=== PATIENT | female | born 1965 ===

== ENCOUNTER 2017-05-11 15:36 | Inpatient (IN) ==
[2017-05-11] MEDS ORDERED: SODIUM CHLORIDE 0.9% 1,000 ML IV STA (16:30)
[2017-05-11 16:35] LABS: Basophils % 0.1 % (0.0-0.8); Eosinophils # 0.1 10*3/uL (0.0-0.87); Eosinophils % 1.8 % (0.00-10.9); Hematocrit 21.7 VOL% (35.7-47.0); Hemoglobin 7.1 GM/DL (12.0-16.0); Immature Granulocytes % 0.7 %; Immature Granulocytes Absolute 0.05 #; Lymphocytes # 1.3 10*3/uL (1.4-4.0); Lymphocytes % 18.3 % (21.3-54.2); Mean Corpuscular HGB Conc 32.7 GM/DL (32-36); Mean Corpuscular Hemoglobin 34 PG (27-34); Mean Corpuscular Volume 102.4 FL (87-102); Mean Platelet Volume 10.5 FL (9.6-12.0); Monocytes # 0.5 10*3/uL (0.11-0.8); Monocytes % 6.4 % (1.7-12.7); Neutrophils # 5.3 10*3/uL (1.4-7.4); Neutrophils % 72.7 % (38.7-73.9); Red Blood Count 2.12 MC/CUMM (3.8-5.5); Red Cell Distribution Width 14.7 % (9.3-17.3); White Blood Count 7.3 T/CUMM (4-12)
[2017-05-11 16:38] LABS: Platelet Count 65 T/CUMM (130-400)
[2017-05-11 16:47] LABS: Alanine Aminotransferase 26 U/L (13-56); Alkaline Phosphatase 158 U/L (45-117); Aspartate Amino Transferase 32 U/L (0-37); Blood Urea Nitrogen 15 MG/DL (7-18); Calcium 7.1 MG/DL (8.5-10.1); Glucose 284 MG/DL (74-106); Osmolality,Calculated 285.7 MOS/KG (273-304); Potassium 3.7 MMOL/L (3.5-5.1); Sodium 138 MMOL/L (136-145); Total Protein 4.9 G/DL (6.4-8.3); Troponin I Only < 0.015 NG/ML (0.00-0.045)
[2017-05-11] MEDS ORDERED: SODIUM CHLORIDE 0.9% 250 ML IV PRN ×3 (16:47→20:41)
--- NOTE | 2017-05-11 16:53 | XRay Report ---
XR chest 1V portable Indication: Hypotension. No syncope. Chest one view: Comparison 10/13/2014. Dialysis catheter has been removed. Lung volumes remain low with chronic elevation right hemidiaphragm. Bibasilar atelectasis is noted. Borderline cardiomegaly is stable. No infiltrates. Pleural spaces are clear. Impression: Borderline cardiomegaly and pulmonary hypoinflation with chronic elevation right hemidiaphragm. No overt CHF. PROCEDURE INTERPRETED AT [facility] DEPARTMENT OF RADIOLOGY Final Report Signed by: Teddy Cortez M.D.
[2017-05-11 17:05] LABS: INR 1.1; PT Patient Result 11.9 SECS; Partial Thromboplastin Time 27.6 SECS (0-40)
--- NOTE | 2017-05-11 17:31 | Emergency Department Note ---
Sanford Bell Manpreet, am scribing for, and in the presence of, Waqar Owens Jr., MD 16:29. Roman Bell Marvin Jr., MD, personally performed the services described in this documentation, ascribed by Luis Manuel Christina in my presence, and it is both accurate and complete 730 . Arrival - Arrival Chief Complaint: Syncope Stated Complaint: weakness/low bp ED Nursing Triage Note: pt reports she had dialysis this morning and before she left she got syncopal and bp dropped. pt reports she was given two liters of ivf and sent home and felt better. Mode of Arrival: Stretcher Limitations: No Limitations Source: Patient - History of Present Illness HPI Narrative: Pt is a 51 y/o female who presents to the ED after being dizzy and her BP dropping while standing up. Pt was at dialysis when they checked her BP and repeated it when she was standing. Pt kept getting dizzy when she was standing up. Pt was given two liters of fluid. Pt was then sent home and felt better. When pt got home, she again felt dizzy while standing. Pt also c/o +VOSS and rates it 4/10. Pt denies any CP or SOB with the pain and did not pass out. No other pains/complaints reported to the ED. Onset (ago): hour(s) Consistency: constant Severity: moderate Allergies/Adverse Reactions: Allergies Allergy/AdvReac Type Severity Reaction Status Date / Time No Known Allergies Allergy Unverified 03/05/15 23:03 Home Medications: Home Medications Medication Instructions Recorded Confirmed Type Aspirin EC Tab 325 mg PO DAILY 03/05/15 03/05/15 History Carvedilol [Coreg] 12.5 mg PO BID 03/05/15 03/05/15 History Ferrous Sulfate Tab [Feosol Tab] 325 mg PO BID 03/05/15 03/05/15 History Multivitamin [One Daily] 1 each PO DAILY 03/05/15 03/05/15 History glipiZIDE [Glipizide] 5 mg PO AC 03/05/15 03/05/15 History HYDROcodone/ACETAMIN 5-325 [[place] 1 tablet PO Q6H PRN #20 tablet 03/06/15 Rx 5-325] Review of System - Review of System 12 point system: reviewed and no additional remarkable complaints except as stated - Review of System Constitutional: Present: other (Low BP and dizziness). Absent: chills, diaphoresis, fever Respiratory: Absent: cough, respiratory distress, wheezing Cardiovascular: Absent: chest pain, dyspnea on exertion Gastrointestinal: Absent: abdominal pain, nausea Neurological: Present: headache Medical,Surgical,& Family Hx - Medical History Cardio: History of: Hypertension Endocrine: History of: Diabetes Mellitus (IDDM) Renal: History of: Dialysis (went today due tomorrow), Renal Failure - Social History Smoking Status: Never smoker Exam Physical Examination: General: Well-developed well-nourished, no apparent distress. Patient laid down with systolic blood pressure 105 Head: Normocephalic, atraumatic. Eyes: PERRLA, EOMI. Nose: No obvious acute deformities or discharge. Mouth: No obvious acute injury. Neck: Full range of motion without obvious pain. No midline tender to palpation. Lymphatic: no significant lymphadenopathy noted. Lungs: Clear to auscultation bilaterally, normal and equal air movement bilaterally, no obvious rales or wheezing. Heart: regular rate and rhythm, no obvious mummers. Abdomen: Soft nontender, nondistended, normal active bowel sounds. Skin: No obivous acute lesions noted Musculoskeletal: No gross deformities. Neurological: No focal findings, cranial nerves II through XII grossly normal. Psychiatric: Appropriate mood.. : Deferred Vital Signs: Vital Signs Temperature 100.2 F H 05/11/17 15:58 Pulse Rate 88 05/11/17 15:58 Respiratory Rate 18 05/11/17 15:58 Blood Pressure 84/41 05/11/17 15:58 O2 Sat by Pulse Oximetry 100 05/11/17 15:37 Course Course Narrative: Differential diagnosis, volume depletion secondary to dialysis, hypotension, near syncope, headache, ACS, cardiac arrhythmias - Reevaluation(s) Reevaluation #1: Patient on the bedpan now and has been grossly bloody stool, patient still hypotensive Time: 16:48 Reevaluation #2: Systolic blood pressure now 106. Her GI bleed is the obvious cause for this hypotension and near syncopal episode. She is not on blood thinners. We will admit her to the ICU under the hospitalist service who is here to see the patient now. Time: 17:27 Results - Labs CBC & BMP: 05/11/17 16:14 05/11/17 16:14 Lab Results: I have reviewed the patients labs Labs: Laboratory Tests 05/11/17 05/11/17 05/11/17 16:14 16:14 16:14 WBC 7.3 RBC 2.12 L Hgb 7.1 L Hct 21.7 L MCV 102.4 H MCH 34 MCHC 32.7 RDW 14.7 Plt Count 65 L MPV 10.5 Neut % (Auto) 72.7 Lymph % (Auto) 18.3 L [place] % (Auto) 6.4 Eos % (Auto) 1.8 Baso % (Auto) 0.1 Neut # (Auto) 5.3 Lymph # (Auto) 1.3 L [place] # (Auto) 0.5 Eos # (Auto) 0.1 Baso # (Auto) 0.0 Immature Gran % 0.7 Nucleated RBC % 0.0 Immature Gran # 0.05 Nucleated RBCs # 0.00 Immature Plt Fraction 3.3 INR 1.1 PT Patient/Control Mix 11.9 Circ Anticoag PTT 27.6 Sodium 138 Potassium 3.7 Chloride 100 Carbon Dioxide 33 H Anion Gap 8.7 BUN 15 Creatinine 3.40 H GFR Calculation 17 BUN/Creatinine Ratio 4.00 L Glucose 284 H Calculated Osmolality 285.7 Calcium 7.1 L Total Bilirubin 0.80 AST 32 ALT 26 Alkaline Phosphatase 158 H Troponin I < 0.015 Total Protein 4.9 L Albumin 2.0 L Globulin 2.9 Albumin/Globulin Ratio 0.6 L - EKG EKG results: interpreted by ERMD (Heart rate 85, normal sinus rhythm, narrow complex QRS complexes without obvious acute ST changes) - Diagnostic Findings Procedure: Chest x-ray: report reviewed by me, image reviewed by me (Borderline cardiomegaly and pulmonary hypoinflation with chronic elevation right hemidiaphragm. No overt CHF.) Critical Care Time Critical Care Time: Yes (Hypotension, GI bleed) Total Critical Care Time: 40 Attestation: Critical care due to multiple diagnoses, critical condition, prolonged patient care time Disposition Clinical Impression: Acute hypotension, Lower GI bleed, End stage renal disease on dialysis, Anemia Case discussed with: patient Disposition: Still a Patient Condition: Guarded Time of Disposition: 17:29
[2017-05-11 18:31] LABS: Platelet Estimate Decreased
[2017-05-11 18:32] LABS: Macrocytosis Slight
[2017-05-11] MEDS ORDERED: MORPHINE 2 MG/1 ML SYRINGE IV PRN (18:32)
[2017-05-11] MEDS ORDERED: ACETAMINOPHEN 325 MG TABLET PO PRN (18:32)
--- NOTE | 2017-05-11 18:58 | CT Report ---
CT abdomen pelvis wo con Indication: Left lower quadrant abdominal pain. CT ABDOMEN AND PELVIS WITHOUT CONTRAST DLP: 942 mGy*cm. One or more of the following dose reduction techniques was used: Automated exposure control, adjustment of the mA and/or kV according the patient size, or use of iterative reconstruction techniques. Comparison: None. Technique: Axial noncontrast CT images of the abdomen and pelvis were obtained. Abdomen: Normal heart size. Mitral valve calcifications are present as well as coronary artery calcifications. No aortic aneurysm. Bibasilar scarring or atelectasis. Elevated right hemidiaphragm. Obesity and fatty infiltration of liver noted. Liver is minimally enlarged. Cholecystectomy clips. Spleen is enlarged with calcified granulomata present. Stomach is distended. No small bowel dilatation shown. There is a 15 x 12 mm hypodensity at the tip of the tail the pancreas. Pancreas otherwise unremarkable absent contrast. Adrenal glands are unremarkable. Kidneys are atrophied with atheromatous disease present. Monckeberg calcifications of the mesenteric vasculature noted. 16 mm duodenal diverticulum is present. Pelvis: Normal appendix without inflammation. Urinary bladder and rectosigmoid colon are unremarkable. Uterus and adnexal structures appear atrophied but otherwise unremarkable as well. No bone lesions. Impression: 1. Hepatosplenomegaly, with fatty infiltration of liver. 2. Distention of the stomach with no small bowel dilatation shown. Evidence of diabetes. Query gastroparesis. 3. 15 x 12 mm hypodensity at the tip of the tail the pancreas. Absent contrast, further characterization is not possible. Consider either ultrasound or MRI. 4. Bilateral renal atrophy. 5. Duodenal diverticulum. PROCEDURE INTERPRETED AT [facility] DEPARTMENT OF RADIOLOGY Final Report Signed by: Teddy Cortez M.D.
--- NOTE | 2017-05-11 19:07 | Hospitalist History & Physical ---
Assessment and Plan - Time spent with patient Time spent with patient: Greater than 30 minutes (1) Lower GI bleed Status: Acute Assessment and plan: Patient hypertensive passed bright red blood per rectum while in the ED. Transfuse with 2 units packed red blood cells. IV fluids. Consult GI. Current Visit: Yes (2) Anemia Status: Acute Assessment and plan: Secondary to her GI bleed. Serial H&H's. Transfuse with 2 units of packed red blood cells. Repeat CBC in a.m. Current Visit: Yes (3) LLQ abdominal pain Status: Acute Assessment and plan: CT of the abdomen and pelvis. Current Visit: Yes (4) End stage renal disease on dialysis Status: Acute Assessment and plan: Creatinine 3.40. Secondary to diabetes. Accu-Cheks ACHS. Sliding scale insulin per protocol. Continue home medications. Consult nephrology for dialysis if indicated. Current Visit: Yes History of Present Illness Chief complaint: BRBPR History of present illness: Ms. Garner is a 51 year old [place] female with a past medical history significant for hypertension, diabetes, CKD on hemodialysis who presents to the ED today for further evaluation of fatigue and generalized weakness having onset this morning. The patient reports that she began feeling fatigued and weak while at dialysis today. The nurses there found her to hypotensive and treated her with IV fluids until her pressure normalized. She was instructed to call 911 or go to the ER if she began to feel faint again. Once home, she began to feel fatigued with dizziness, headache, fullness in her ears and weakness. She was brought to the [place] ED via EMS. On arrival the patient was found to be hypotensive with a BP of 69/40 and anemic with H7H of 7 and 21. She did have a bowel movement while in the ED and passed bright red blood. She was infused with 3L of NS and responded appropriately. She complained of left lower quadrant pain at the time of my exam. She denies a similar events, hematemesis, chest pain, pain on inspiration, lower extremity edema. Lab work reveals: WBC 7.3, hemoglobin 7.1, hematocrit 21.7, MCV 102.4, platelet count 65, sodium 138, potassium 3.7, BUN 15, creatinine 3.40, serum glucose 284. Case discussed with Dr. Milian and the patient has been admitted to the hospital medicine service for further evaluation and treatment. She is a FULL CODE. Home medications have been reviewed and reconciled. Home Medications Medication Instructions Recorded Confirmed Type Aspirin EC Tab 325 mg PO DAILY 03/05/15 03/05/15 History Carvedilol [Coreg] 12.5 mg PO BID 03/05/15 03/05/15 History Ferrous Sulfate Tab [Feosol Tab] 325 mg PO BID 03/05/15 03/05/15 History Multivitamin [One Daily] 1 each PO DAILY 03/05/15 03/05/15 History glipiZIDE [Glipizide] 5 mg PO AC 03/05/15 03/05/15 History HYDROcodone/ACETAMIN 5-325 [[place] 1 tablet PO Q6H PRN #20 tablet 03/06/15 Rx 5-325] Allergies Allergy/AdvReac Type Severity Reaction Status Date / Time No Known Allergies Allergy Unverified 03/05/15 23:03 Medical,Surgical,& Family Hx - Medical History Cardio: History of: Hypertension Endocrine: History of: Diabetes Mellitus (IDDM) Renal: History of: Dialysis (went today due tomorrow), Renal Failure - Family History Family History: Reports;: Family Diabetes, Family Heart Disease, Family Hypertension - Social History Smoking Status: Never smoker Frequency of Alcohol Use: None Type of Drug Use: None Marital Status: Single Lives With:: Alone Functional capacity: independent ambulation 12 point system: reviewed and no additional remarkable complaints except as stated Exam - Constitutional Vitals: Period Temp Pulse Resp BP Sys/Lee Pulse Ox Last 24 Hr 100.2 F-100.2 F 81-92 18-18 77-129/40-58 100-100 Exam: General appearance: obese, no acute distress - Head Head exam: Present: normocephalic, atraumatic - Eye Eye exam: Present: EOMI. Absent: conjunctival injection, nystagmus Pupils: Present: GAMAL, normal accommodation - ENT ENT exam: Present: normal exam, normal external ear exam - Neck Neck exam: Present: normal inspection. Absent: lymphadenopathy, tenderness, thyromegaly - Respiratory Respiratory exam: Present: clear to auscultation bilaterally. Absent: rales, rhonchi, wheezes - Cardiovascular Cardiovascular exam: Present: regular rate and rhythm. Absent: carotid bruit, gallop, rubs - GI/Abdominal GI/Abdominal exam: Present: normal bowel sounds, LLQ tenderness to palpation. Absent: ascites, distended, mass - Extremities Exam Extremities exam: Present: normal inspection, normal capillary refill. Absent: edema - Back Exam Back exam: Absent: CVA tenderness (L), CVA tenderness (R) - Neurological Exam Neurological exam: Present: alert, oriented X3, CN II-XII intact, reflexes normal - Psychiatric Psychiatric exam: Present: normal affect, normal mood - Skin Skin exam: Present: warm, dry Results - Labs CBC & BMP: 05/11/17 16:14 05/11/17 16:14 Lab Results: I have reviewed the past 24 hour labs - EKG EKG results: interpreted by ANIKET, sinus rhythm Quality Measures - VTE Contraindication to Pharmacological VTE Prophylaxis: High Risk of Bleeding
[2017-05-11 20:26] LABS: Hematocrit 22.7 VOL% (35.7-47.0); Hemoglobin 7.2 GM/DL (12.0-16.0)
[2017-05-11 20:41] LABS: Fibrinogen Quant Value 214 MG% (200-400); INR 1.1; Partial Thromboplastin Time 26.9 SECS (0-40)
[2017-05-11] MEDS: PANTOPRAZOLE 40 MG VIAL IV SCH (22:54)
[2017-05-12] MEDS ORDERED: INSULIN REGULAR 100 UNIT/ML SUBCUT ONE ×2 (00:01→01:56)
[2017-05-12] MEDS ORDERED: ACETAMINOPHEN 325 MG SUPP RECTAL PRN (00:08)
[2017-05-12] MEDS ORDERED: INSULIN REGULAR 100 UNIT/ML IV ONE (01:55)
[2017-05-12 05:53] LABS: Basophils % 0.3 % (0.0-0.8); Eosinophils # 0.2 10*3/uL (0.0-0.87); Eosinophils % 1.6 % (0.00-10.9); Hematocrit 26.6 VOL% (35.7-47.0); Hemoglobin 8.7 GM/DL (12.0-16.0); Immature Granulocytes % 1.7 %; Immature Granulocytes Absolute 0.18 #; Lymphocytes # 2.1 10*3/uL (1.4-4.0); Lymphocytes % 20.4 % (21.3-54.2); Mean Corpuscular HGB Conc 32.7 GM/DL (32-36); Mean Corpuscular Hemoglobin 32 PG (27-34); Mean Corpuscular Volume 98.9 FL (87-102); Monocytes # 0.7 10*3/uL (0.11-0.8); Monocytes % 6.8 % (1.7-12.7); NRBC # 0.09 10*3/uL; Neutrophils # 7.2 10*3/uL (1.4-7.4); Neutrophils % 69.2 % (38.7-73.9); Platelet Count 61 T/CUMM (130-400); Red Blood Count 2.69 MC/CUMM (3.8-5.5); Red Cell Distribution Width 18.2 % (9.3-17.3); White Blood Count 10.5 T/CUMM (4-12)
[2017-05-12 06:30] LABS: Calcium 7.6 MG/DL (8.5-10.1); Osmolality,Calculated 295.5 MOS/KG (273-304); Risk Ratio 5.4; VLDL CHOLESTEROL 33.2 MG/DL
[2017-05-12] MEDS: INSULIN ASPART PROTAMINE/ASPART 70/30 100 UNIT/ML SUBCUT SCH ×4 (07:54→21:37)
--- NOTE | 2017-05-12 09:08 | EKG Report ---
Stationary ECG Study [facility] ER Test Date: 05/11/2017 4:06:44 PM Pat Name: CAR GILBERT Department: Room: 122 Gender: F [employer]: : 1965 Requested by: Waqar Owens Order Number: [id number] Reading MD: EMILIE LYONS Intervals [place] Rate: 85 P: 81 AR: 120 QRS: 38 QRSD: 96 T: -17 QT: 416 QTc: 458 Interpretive Statements SINUS RHYTHM LOW QRS VOLTAGE IN PRECORDIAL LEADS POSSIBLE ANTERIOR MYOCARDIAL INFARCTION, PROBABLY OLD Electronically Signed On 05-12-17 11:31:13 CDT by EMILIE LYONS [email or web address]
--- NOTE | 2017-05-12 11:18 | Gastrointestinal Consult Note ---
Assessment and Plan (1) Lower GI bleed Status: Acute Assessment and plan: This patient has the acute onset of painful cramping in waves in association with bright red blood per rectum which has now become more maroon in a decrease in hematocrit 21% all suspicious for ischemic colitis. Other conditions in the differential however includes infectious colitis, a diverticular bleed, malignancy colon cancer, AVMs, and Dieulafoy's lesions. The patient is willing to undergo colonoscopy for evaluation tomorrow will give her a GoLYTELY prep in order to pursue this. Risks of colonoscopy include but are not limited to: Bleeding, infection, perforation, cardiac and pulmonary compromise. Current Visit: Yes (2) LLQ abdominal pain Status: Acute Assessment and plan: Again I believe this is likely either ischemic colitis versus infectious colitis as a cause for the pain and blood loss. Diverticular bleeding is usually painless. Colonoscopy tomorrow should be able to demonstrate the cause for the blood loss and pain. Current Visit: Yes (3) Anemia Status: Acute Assessment and plan: The patient has some anemia of chronic disease likely tied into her dialysis. She has dropped her hematocrit however acutely down to 21% and is having maroon stools in addition to her previous bright red blood per rectum. Unfortunately because of her dialysis she will had to be prepped using a GoLYTELY prep and we will perform colonoscopy on her tomorrow in order to expedite her discharge from the hospital, and to treat any ongoing blood loss if this proves to be diverticular instead of what I presume is likely ischemic colitis. Current Visit: Yes History of Present Illness Chief complaint: Left upper and left mid abdominal pain, rectal bleeding, anemia History of present illness: Ms. Garner is a 51 year old female who has a history of doing dialysis 3 times per week and yesterday after dialysis the patient developed a great deal of cramping in her left upper and left mid abdomen associated with the passage of bright red blood per rectum in a voluminous amount. Weakness and dizziness ensued patient presented to the emergency room for evaluation. She has never had an episode like this before. She was noted to have hypotension and her hematocrit had dropped quite significantly to 21.7 and now status post transfusion is up to 26.6. Evaluation of her previous hematocrits indicated that she tends to run anywhere between 25.8-29.5 going back to the 6617-8904 timeframe. Her only outpatient anticoagulant medication is aspirin 325 mg daily. She does take iron sulfate 325 mg twice daily on a routine basis. She is postmenopausal and does not have any periods. She has never had a colonoscopy. There is no family history of colorectal cancer or polyps that she knows of. She has not had any fevers or chills, and her appetite is good. She has been on a clear liquid diet in preparation for potential colonoscopy. Will arrange for this procedure for tomorrow, given that she is still having low -grade bleeding with maroon stools at this time, and significant left abdominal pain both upper and lower. 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 She does not smoke and does not drink significant amounts of alcohol. Home Medications Medication Instructions Recorded Confirmed Type Aspirin EC Tab 325 mg PO DAILY 03/05/15 05/12/17 History Carvedilol [Coreg] 12.5 mg PO BID 03/05/15 05/12/17 History Ferrous Sulfate Tab [Feosol Tab] 325 mg PO BID 03/05/15 05/12/17 History Multivitamin [One Daily] 1 each PO DAILY 03/05/15 05/12/17 History glipiZIDE [Glipizide] 5 mg PO AC 03/05/15 05/12/17 History HYDROcodone/ACETAMIN 5-325 [[place] 1 tablet PO Q6H PRN #20 tablet 03/06/15 Rx 5-325] Allergies Allergy/AdvReac Type Severity Reaction Status Date / Time No Known Allergies Allergy Unverified 03/05/15 23:03 Medical,Surgical,& Family Hx - Medical History Cardio: No history of: Hypertension Endocrine: History of: Diabetes Mellitus (IDDM) Renal: History of: Dialysis (went today due tomorrow), Renal Failure - Family History Family History: Reports;: Family Diabetes, Family Heart Disease, Family Hypertension - Social History Smoking Status: Never smoker Frequency of Alcohol Use: None Type of Drug Use: None Review of systems: Constitutional: Denies fever, chills, nausea, and vomiting Eyes: Denies dry eyes, and scleral icterus HENT: Denies headaches Cardiovascular: Denies acute chest pain and claudication Respiratory: Denies shortness of breath, wheezing, and difficulty breathing, denies cough Gastrointestinal: As noted in the HPI Genitourinary: Denies dysuria and hematuria Neurologic: Denies vision loss, and loss of sensation Musculoskeletal: She does have some joint swelling, joint stiffness, and muscular weakness Psychiatric: Denies depression and kaila symptoms Heme-Lymph: Patient does have some easy bruising, but no lymph node enlargement or tenderness, night sweats, excessive bleeding Allergies-immunologic: Denies pruritus and rhinorrhea Exam - Constitutional Vitals: Period Temp Pulse Resp BP Sys/Lee Pulse Ox Last 24 Hr 97.6 F-100.2 F 81-101 13-24 77-132/30-84 95-100 General appearance: no acute distress Exam: Constitutional: Well-developed, well-nourished, alert, and in no acute distress Head and face: Head: Normocephalic atraumatic Eyes: Conjunctiva without injection, no gross scleral icterus, pupils equal and round bilaterally Ears: Intact to conversation in both ears Nose: External appearance is normal, nares patent Mouth: Oral mucous membranes moist without erythema dentition noted to be without erosion Neck: Normal appearance, no masses or tenderness, trachea midline Thyroid: Gland midline and appropriate size for age Respiratory: Normal respiratory effort, clear to auscultation without wheezes, rhonchi or rales Cardiovascular: Regular rate and rhythm, normal S1, S2, the exam is without rubs, murmurs or gallops. Gastrointestinal: There is a moderate amount of tenderness to palpation mostly in the left upper and left mid abdomen with just a touch of rebound to this area, normal active bowel sounds, tone normal without rigidity or guarding , no masses present, no hepatomegaly, no spleen tip felt. The patient has a pannus that has multiple bruises in association with this presumably from insulin injection. Good tone no external fissures or fistulas small internal hemorrhoids are palpated the patient has stool is maroon and grossly guaiac positive. Lymphatic: Neck without adenopathy, axilla without lymphadenopathy present Musculoskeletal: Right and left lower extremities with slight edema on the right calf is a area of woody/calcified subcutaneous tissue of unclear etiology. Patient states that this area has been ultrasound and thought not to be a DVT. Skin and subcutaneous tissue: No rashes or ulcerations noted, multiple bruises are noted along the patient's abdomen, normal skin turgor, digits and nails without clubbing/cyanosis/deformities. Neurologic: The patient is grossly oriented to person place and time, cranial nerves show tongue movements are normal with normal tongue extrusion midline, light touch sensation is intact. Psychiatric: No hallucinations or delusions are present, does not appear depressed Results - Labs CBC & BMP: 05/12/17 08:43 05/12/17 05:01 Quality Measures - VTE Contraindication to Pharmacological VTE Prophylaxis: High Risk of Bleeding
[2017-05-12] MEDS: PANTOPRAZOLE 40 MG VIAL IV SCH ×2 (12:01→21:38)
[2017-05-12] MEDS: BISACODYL 5 MG TABLET PO SCH ×2 (12:01→20:25)
[2017-05-12 12:11] LABS: Hematocrit 28.6 VOL% (35.7-47.0); Hemoglobin 9.5 GM/DL (12.0-16.0)
--- NOTE | 2017-05-12 17:32 | Hospitalist Progress Note ---
Hospitalist: Subjective Interval history: 51-year-old female with history of ESRD on hemodialysis admitted with lower GI bleed. Yesterday after dialysis she developed a cramping in her abdomen associated with the passage of bright red blood per rectum in a voluminous amount. Weakness and dizziness ensued patient presented to the emergency room for evaluation. She has never had an episode like this before. She was noted to have hypotension and her hematocrit dropped quite significantly to 21.7 and now status post transfusion is up to 26.6. Exam - Constitutional Vitals: Period Temp Pulse Resp BP Sys/Lee Pulse Ox Last 24 Hr 97.6 F-98.8 F 81-101 12-24 82-133/30-84 95-100 Exam: General: No Acute Distress HEENT: Normocephalic, atraumatic, Extra ocular movements intact Neck: Supple, No JVD Chest: Clear to auscultation B/L CV: S1 + S2 audible without murmur, gallop or rub Abd: soft, left-sided abdominal tenderness, Non-distended, BS + Ext: Mild edema Skin: No purpura, bruising or rash Rheumatologic: No Joint deformities Neurologic: Strength 5/5 all extremities, no gross sensory deficits Results - Labs CBC & BMP: 05/12/17 11:59 05/12/17 05:01 - Impressions Assessment and Plan (1) Lower GI bleed Status: Acute Assessment and plan: This is likely due to colitis rule out ischemic colitis, infectious colitis. Patient is scheduled for a colonoscopy in the morning Current Visit: Yes (2) LLQ abdominal pain Status: Acute Assessment and plan: Likely related to her colitis Current Visit: Yes (3) Anemia of acute GI blood loss Status: Acute Assessment and plan: She is status post packed RBC transfusion Current Visit: Yes (4) ESRD on Ch HD (5) DM-2 Quality Measures - VTE Contraindication to Pharmacological VTE Prophylaxis: High Risk of Bleeding
[2017-05-12] MEDS ORDERED: POLYETHYLENE GLYCOL 3350/ELECTROLYTES 4,000 ML BOTTLE PO ONE (18:00)
[2017-05-12] MEDS ORDERED: MAGNESIUM CITRATE 300 ML BOTTLE PO ONE (21:00)
[2017-05-13 01:43] LABS: Basophils % 0.2 % (0.0-0.8); Eosinophils # 0.3 10*3/uL (0.0-0.87); Eosinophils % 2.8 % (0.00-10.9); Hematocrit 26.3 VOL% (35.7-47.0); Hemoglobin 8.6 GM/DL (12.0-16.0); Immature Granulocytes % 1.4 %; Immature Granulocytes Absolute 0.14 #; Lymphocytes # 1.7 10*3/uL (1.4-4.0); Lymphocytes % 16.8 % (21.3-54.2); Mean Corpuscular HGB Conc 32.7 GM/DL (32-36); Mean Corpuscular Hemoglobin 32 PG (27-34); Mean Corpuscular Volume 98.9 FL (87-102); Mean Platelet Volume 10.5 FL (9.6-12.0); Monocytes # 0.5 10*3/uL (0.11-0.8); Monocytes % 4.7 % (1.7-12.7); NRBC # 0.04 10*3/uL; Neutrophils # 7.7 10*3/uL (1.4-7.4); Neutrophils % 74.1 % (38.7-73.9); Platelet Count 59 T/CUMM (130-400); Red Blood Count 2.66 MC/CUMM (3.8-5.5); Red Cell Distribution Width 18.9 % (9.3-17.3); White Blood Count 10.3 T/CUMM (4-12)
[2017-05-13 02:13] LABS: Calcium 8.3 MG/DL (8.5-10.1); Osmolality,Calculated 295.1 MOS/KG (273-304); Potassium 3.5 MMOL/L (3.5-5.1)
[2017-05-13 02:36] LABS: Band Neutrophils 1 % (0-10); Eosinophils 2 % (0-10); Lymphocytes 21 % (20-55); Segmented Neutrophils 75 % (50-85); Total Cells Counted 100
[2017-05-13 02:37] LABS: Anisocytosis 1+; Hypochromasia 1+; Ovalocytes Few; Platelet Estimate Decreased
[2017-05-13] MEDS: BISACODYL 5 MG TABLET PO SCH (04:45)
[2017-05-13] MEDS: INSULIN ASPART PROTAMINE/ASPART 70/30 100 UNIT/ML SUBCUT SCH ×4 (07:34→21:18)
[2017-05-13] MEDS: PANTOPRAZOLE 40 MG VIAL IV SCH ×2 (08:35→21:18)
--- NOTE | 2017-05-13 10:43 | Operative Note ---
Date of procedure: 05/13/17 Pre-op diagnosis: Lower GI bleeding, hematocrit to 26%, left lower quadrant pain Post-op diagnosis: other (Possible infectious colitis. Possible diverticular bleed with resolution. Mild left-sided diverticulosis noted, and small internal hemorrhoids are noted on retroflex) Procedure: PROCEDURE: Colonoscopy with cold biopsy for pathology REFERRING PHYSICIAN: Mena Frye MD INDICATIONS: Lower GI bleeding, left lower quadrant pain, anemia with hematocrit 26%. The prior H&P was reviewed and interrim changes are as noted: No change from GI consultation on 05/12/17 ENDOSCOPIST: Miguel Ruiz MD ENDOSCOPE: Olympus Video 100 System colonoscope COLON PREPARATION: 238 gm of PEG containing laxative and 1.9 liters of gatoraid/sports drink and dulcolax 15 mg q8 hours x 3 ASA CLASS: 4 EXAM: CV: regular rate and rhythm Respiratory: Clear without wheezes Abdominal: active bowel sounds Rectal: Good tone, no fissures or fistulas MEDICATION: Per nursing anesthesia protocol, see their notes PROCEDURE: After discussion of the potential risks and benefits of colonoscopy, the informed consent was obtained, from patient or health care surrogate. The patient was then placed in the left lateral decubitus position where sedation was achieved as noted above. Rectal examination was followed by insertion of the colonoscope. The colonoscope was passed under direct visualization to the cecum. Advancement was facilitated by insertion/withdrawl techniques, abdominal pressure and patient positioning. Once the cecal pole was reached, slow withdrawal was performed with the findings as noted below. The patient tolerated the procedure well and without complication. QUALITY OF PREP: Excellent WITHDRAWL TIME: 6 minutes 43 seconds BIOPSIES: Cecum/ascending colon, descending/sigmoid PHOTOGRAPHS: Obtained FINDINGS: The musoca appeared mildly erythematous in the following regions: rectum, sigmoid colon, descending colon, splenic flexure, transverse colon, hepatic flexure, ascending colon and cecum. Position within the cecum was confirmed by ileocecal valve, appendiceal oriface, and the convergence of folds (crows foot). No polyp, mass or AVM was noted throughout the colon. Aside from being mildly inflamed throughout the colon there appears to be a predominance of thickening in the sigmoid region with the patient previously had been having pain. There was no pus or ischemic appearance or bleeding. Mild left-sided diverticulosis noted. Routine biopsies were taken in the ascending/cecum, descending/sigmoid in order to look for underlying colitis. Intubation of the TI was achieved x 5 cm with normal appearence, small internal hemorrhoids were noted on retroflex IMPRESSION: Possible infectious colitis. Possible diverticular bleed with resolution. Mild left-sided diverticulosis noted, and small internal hemorrhoids are noted on retroflex RECOMMENDATIONS: High fiber diet Repeat colonosocopy will be in 10 years. Await biopsy results to look for underlying colitis. White count is stable at this time, would not initiate antibiotic therapy. Citrucel 1 tablespoon in 12 oz juice BID: 1 bottle: :11 Follow up by phone for biopsy results in 1-2 weeks by phone Miguel Ruiz MD COPY TO: Mena Frye MD Anesthesia: MAC Surgeon / Physician: Miguel Ruiz Estimated blood loss: minimal Specimens: other (Cecum/ascending, descending/sigmoid biopsies) Condition: stable Disposition: post procedure unit ([facility]I. Suite) Results - Labs CBC & BMP: 05/13/17 00:58 05/13/17 00:58 Discharge Plan - Discharge Medications No Action Multivitamin [One Daily] 1 each PO DAILY Carvedilol [Coreg] 12.5 mg PO BID Aspirin EC Tab 325 mg PO DAILY glipiZIDE [Glipizide] 5 mg PO AC Ferrous Sulfate Tab [Feosol Tab] 325 mg PO BID HYDROcodone/ACETAMIN 5-325 [[place] 5-325] 1 tablet PO Q6H PRN #20 tablet PRN Reason: leg pain - Follow Up or Referral - Forms/Instructions
--- NOTE | 2017-05-13 10:45 | Anesthesia Post-Op ---
Anesthesia Post OP - Post Ansesthetic Evaluation Patient seen in post op: Yes Resp: within normal limits CV: within normal limits Mental: within normal limits Temp: within normal limits Gdbd-Uo-Lvljqdalg: within normal limits Nausea and Vomiting: within normal limits Pain: within normal limits
[2017-05-13] MEDS ORDERED: PROPOFOL 200 MG/20 ML VIAL IV ONE (10:48)
[2017-05-13] MEDS ORDERED: SODIUM CHLORIDE 0.9% 250 ML IV ONE (10:50)
--- NOTE | 2017-05-13 10:50 | Gastrointestinal Progress Note ---
Assessment and Plan (1) Lower GI bleed Status: Acute Assessment and plan: This patient has the acute onset of painful cramping in waves in association with bright red blood per rectum which has now become more maroon in a decrease in hematocrit 21% all suspicious for ischemic colitis. Other conditions in the differential however includes infectious colitis, a diverticular bleed, malignancy colon cancer, AVMs, and Dieulafoy's lesions. The patient is willing to undergo colonoscopy for evaluation tomorrow will give her a GoLYTELY prep in order to pursue this. Risks of colonoscopy include but are not limited to: Bleeding, infection, perforation, cardiac and pulmonary compromise. 05/13/17--the patient's pain has improved now and although there was slightly edematous appearance throughout the entire colon with may be some thickening in the sigmoid region there was no true ischemic colitis there. This bleeding may been associated with a low-grade diverticular bleed but her hematocrit has not changed significantly from her baseline. She did not have any polyps she did have a good prep and we were able to see all the way into the terminal ileum. Aside from mild erythema and the thickening in the sigmoid, the colonoscopy was normal. No residual blood was seen. The patient is stable and can be sent up to the floor for potential discharge tomorrow. Biopsies were taken and she may have a underlying self-limited colitis. Given the diverticuli in the left colon I think we will label this is a "diverticular bleed". Current Visit: Yes (2) LLQ abdominal pain Status: Acute Assessment and plan: Again I believe this is likely either ischemic colitis versus infectious colitis as a cause for the pain and blood loss. Diverticular bleeding is usually painless. Colonoscopy tomorrow should be able to demonstrate the cause for the blood loss and pain. 05/13/17--no gross evidence of an ischemic colitis, there was mild erythema throughout and localized edema in the sigmoid, but this did not appear to be a jay jay diverticulitis as I have seen in the past. Will observe as we advance her diet. Current Visit: Yes (3) Anemia Status: Acute Assessment and plan: The patient has some anemia of chronic disease likely tied into her dialysis. She has dropped her hematocrit however acutely down to 21% and is having maroon stools in addition to her previous bright red blood per rectum. Unfortunately because of her dialysis she will had to be prepped using a GoLYTELY prep and we will perform colonoscopy on her tomorrow in order to expedite her discharge from the hospital, and to treat any ongoing blood loss if this proves to be diverticular instead of what I presume is likely ischemic colitis. 05/13/17--the patient's hematocrit is stable. She can certainly be sent up to the floor from the unit, I am advancing her diet to renal. From my standpoint post dialysis she can be discharged tomorrow. Current Visit: Yes Gastroenterology - PN: Subj Interval history: No new complaints, hungry. No further abdominal pain. Exam (Progress Note) - Constitutional Vitals: Period Temp Pulse Resp BP Sys/Lee Pulse Ox Last 24 Hr 97.1 F-97.8 F 71-86 14-22 100-158/50-074 94-100 General appearance: no acute distress - Head Head exam: Present: normocephalic - Eye Eye exam: Present: EOMI Pupils: Present: GAMAL - Cardiovascular Cardiovascular exam: Present: regular rate and rhythm - GI/Abdominal GI/Abdominal exam: Present: normal bowel sounds, soft. Absent: distended, tenderness, rebound - Neurological Exam Neurological exam: Present: alert, oriented X3, CN II-XII intact - Psychiatric Psychiatric exam: Present: normal affect, normal mood - Skin Skin exam: Present: warm Results - Labs CBC & BMP: 05/13/17 00:58 05/13/17 00:58
[2017-05-13 12:05] LABS: Hematocrit 24.9 VOL% (35.7-47.0); Hemoglobin 8.5 GM/DL (12.0-16.0)
--- NOTE | 2017-05-13 15:22 | Hospitalist Progress Note ---
Hospitalist: Subjective Interval history: 51-year-old female with history of ESRD on hemodialysis admitted with lower GI bleed. Yesterday after dialysis she developed a cramping in her abdomen associated with the passage of bright red blood per rectum in a voluminous amount. Weakness and dizziness ensued patient presented to the emergency room for evaluation. She has never had an episode like this before. She is s/p Colonoscopy and was felt to have Diverticular bleed. She has no further bleeding. Exam - Constitutional Vitals: Period Temp Pulse Resp BP Sys/Lee Pulse Ox Last 24 Hr 97.1 F-97.8 F 71-85 14-22 100-162/53-074 94-100 Exam: General: No Acute Distress HEENT: Normocephalic, atraumatic, Extra ocular movements intact Neck: Supple, No JVD Chest: Clear to auscultation B/L CV: S1 + S2 audible without murmur, gallop or rub Abd: soft, left-sided abdominal tenderness, Non-distended, BS + Ext: Mild edema Skin: No purpura, bruising or rash Rheumatologic: No Joint deformities Neurologic: Strength 5/5 all extremities, no gross sensory deficits Results - Labs CBC & BMP: 05/13/17 11:56 05/13/17 00:58 - Impressions Assessment and Plan (1) Lower GI bleed Status: Acute Assessment and plan: This is likely due to colitis rule out ischemic colitis, infectious colitis. Patient is scheduled for a colonoscopy in the morning Current Visit: Yes (2) LLQ abdominal pain Status: Acute Assessment and plan: Likely related to her colitis Current Visit: Yes (3) Anemia of acute GI blood loss Status: Acute Assessment and plan: She is status post packed RBC transfusion Current Visit: Yes (4) ESRD on Ch HD MWF Status: Chronic Assessment and plan: Nephrology consulted to resume HD in AM Current Visit: Yes (5) DM-2 Status: Ch Assessment and plan: She is on SSI Current Visit: Yes (6) Ess HTN Status: Ch Assessment and plan: Uncontrolled, resumed home Coreg, monitor Current Visit: Yes Transfer to floor from ICU today Quality Measures - VTE Contraindication to Pharmacological VTE Prophylaxis: High Risk of Bleeding
[2017-05-13] MEDS: CARVEDILOL 12.5 MG TABLET PO SCH (21:18)
[2017-05-13 23:32] LABS: Hematocrit 21.9 VOL% (35.7-47.0); Hemoglobin 7.5 GM/DL (12.0-16.0)
[2017-05-14 06:19] LABS: Basophils % 0.2 % (0.0-0.8); Eosinophils # 0.2 10*3/uL (0.0-0.87); Eosinophils % 2.7 % (0.00-10.9); Hematocrit 22.2 VOL% (35.7-47.0); Hemoglobin 7.5 GM/DL (12.0-16.0); Immature Granulocytes Absolute 0.06 #; Lymphocytes # 1.6 10*3/uL (1.4-4.0); Lymphocytes % 27.4 % (21.3-54.2); Mean Corpuscular HGB Conc 33.8 GM/DL (32-36); Mean Corpuscular Hemoglobin 33 PG (27-34); Mean Corpuscular Volume 96.1 FL (87-102); Mean Platelet Volume 9.9 FL (9.6-12.0); Monocytes # 0.3 10*3/uL (0.11-0.8); Monocytes % 4.8 % (1.7-12.7); NRBC # 0.04 10*3/uL; Neutrophils # 3.7 10*3/uL (1.4-7.4); Neutrophils % 63.9 % (38.7-73.9); Platelet Count 45 T/CUMM (130-400); Red Blood Count 2.31 MC/CUMM (3.8-5.5); Red Cell Distribution Width 17.7 % (9.3-17.3); White Blood Count 5.9 T/CUMM (4-12)
[2017-05-14 06:50] LABS: Macrocytosis 1+; Platelet Estimate Decreased; Polychromasia Slight; Potassium 3.7 MMOL/L (3.5-5.1); Target Cells Slight
--- NOTE | 2017-05-14 08:31 | Discharge Summary ---
Hospital Course - Hospital Course Hospital Course: Discharge diagnosis: 1. Lower GI bleed, likely diverticular 2. End-stage renal disease 3. Hypertension The patient presented to the hospital with a lower GI bleed. She underwent evaluation by GI, and they felt the source was most likely diverticular. She also has end-stage renal disease. She is on MWF dialysis schedule. GI has completed her workup. We will get her dialyzed today, and then she can go home afterward. Medication reconciliation has been performed. Renal select diet. Activity as tolerated. Follow-up with local physician as previously scheduled. This note was completed using [employer] voice recognition software. There may be manager transition errors as a result. Discharge Plan - Discharge Data Disposition: Disch To Home/Self Care Discharge Diet: advance to your usual diet Activity: resume usual activities as tolerated Hygiene: no restrictions Weight Bearing at Discharge: full weight bearing Driving: no restrictions - Discharge Medications Continue Multivitamin [One Daily] 1 each PO DAILY Carvedilol [Coreg] 12.5 mg PO BID Aspirin EC Tab 325 mg PO DAILY glipiZIDE [Glipizide] 5 mg PO AC Ferrous Sulfate Tab [Feosol Original Tab] 325 mg PO BID HYDROcodone/ACETAMIN 5-325 [[place] 5-325] 1 tablet PO Q6H PRN #20 tablet PRN Reason: leg pain - Follow Up or Referral - Forms/Instructions Exam - Constitutional Vitals: Period Temp Pulse Resp BP Sys/Lee Pulse Ox Last 24 Hr 96.5 F-97.7 F 71-83 15-20 93-162/47-074 94-100 Vital signs are noted above. Heart is regular with no murmur or gallop. Lungs are clear with no rales or wheezes. She is awake and alert Discharge Results Labs on day of discharge: Labs from last 24 hours 05/14/17 05/14/17 05/14/17 07:17 04:37 04:37 WBC 5.9 D RBC 2.31 L Hgb 7.5 L Hct 22.2 L MCV 96.1 MCH 33 MCHC 33.8 RDW 17.7 H Plt Count 45 L D MPV 9.9 Neut % (Auto) 63.9 Lymph % (Auto) 27.4 Payne % (Auto) 4.8 Eos % (Auto) 2.7 Baso % (Auto) 0.2 Neut # (Auto) 3.7 Lymph # (Auto) 1.6 Payne # (Auto) 0.3 Eos # (Auto) 0.2 Baso # (Auto) 0.0 Immature Gran % 1.0 Nucleated RBC % 0.7 Immature Gran # 0.06 Nucleated RBCs # 0.04 Platelet Estimate Decreased Immature Plt Fraction 2.7 Polychromasia Slight Macrocytosis 1+ Target Cells Slight Sodium 136 Potassium 3.7 Chloride 100 Carbon Dioxide 22 Anion Gap 17.7 H BUN 84 H Creatinine 8.40 H GFR Calculation 6 BUN/Creatinine Ratio 10.00 Glucose 118 H POC Glucose 121 H Calculated Osmolality 298.0 Calcium 8.0 L 05/13/17 05/13/17 05/13/17 23:24 19:30 16:10 WBC RBC Hgb 7.5 L Hct 21.9 L MCV MCH MCHC RDW Plt Count MPV Neut % (Auto) Lymph % (Auto) Payne % (Auto) Eos % (Auto) Baso % (Auto) Neut # (Auto) Lymph # (Auto) Payne # (Auto) Eos # (Auto) Baso # (Auto) Immature Gran % Nucleated RBC % Immature Gran # Nucleated RBCs # Platelet Estimate Immature Plt Fraction Polychromasia Macrocytosis Target Cells Sodium Potassium Chloride Carbon Dioxide Anion Gap BUN Creatinine GFR Calculation BUN/Creatinine Ratio Glucose POC Glucose 283 H 210 H Calculated Osmolality Calcium 05/13/17 05/13/17 11:56 11:24 WBC RBC Hgb 8.5 L Hct 24.9 L MCV MCH MCHC RDW Plt Count MPV Neut % (Auto) Lymph % (Auto) Payne % (Auto) Eos % (Auto) Baso % (Auto) Neut # (Auto) Lymph # (Auto) Payne # (Auto) Eos # (Auto) Baso # (Auto) Immature Gran % Nucleated RBC % Immature Gran # Nucleated RBCs # Platelet Estimate Immature Plt Fraction Polychromasia Macrocytosis Target Cells Sodium Potassium Chloride Carbon Dioxide Anion Gap BUN Creatinine GFR Calculation BUN/Creatinine Ratio Glucose POC Glucose 102 Calculated Osmolality Calcium DS: Provider Date of admission: 05/11/17 17:31 Primary care physician: Candice Fermin MD Attending physician on admission: Martin Milian DO Consults: 05/11/17 18:32 Consult to Physician [CONS] Routine Comment: GI bleed Consulting Provider: Miguel Ruiz 05/11/17 19:43 Consult to Pastoral Services [CONS] Routine Comment: Pastoral Screen: Request Hammer Driver Visit Pastoral Screen Source of Request: Patient 05/13/17 15:11 Consult to Physician [CONS] Routine Comment: Please arrange HD on Sunday AM, pt is ESRD Consulting Provider: Teddy Gutierrez When should Consulting Provider be notified: In am When should Consulting Provider be notified: In am Discharging clinician: Willie Lozoya MD Expected date of discharge: 05/14/17 (after dialysis)
[2017-05-14] MEDS ORDERED: SODIUM CHLORIDE 0.9% 250 ML IV PRN (08:41)
[2017-05-14] MEDS: CARVEDILOL 12.5 MG TABLET PO SCH (08:47)
[2017-05-14] MEDS: INSULIN ASPART PROTAMINE/ASPART 70/30 100 UNIT/ML SUBCUT SCH ×3 (08:48→18:11)
[2017-05-14] MEDS: PANTOPRAZOLE 40 MG VIAL IV SCH (08:50)
[2017-05-14] MEDS ORDERED: MULTIVITAMIN (CENTRUM) TABLET PO SCH (09:00)
[2017-05-14 12:16] VITALS: BP 115/53
--- NOTE | 2017-05-14 15:38 | Dialysis Note ---
Dialysis Note - Dialysis Note Ms. Garner is seen during her hemodialysis. She is tolerating dialysis well and the plan is for her to be discharged after dialysis. She will continue dialysis in the outpatient unit.
--- NOTE | 2017-05-14 17:24 | Pathology Report from [facility] ---
[facility] ACCESSION # : [id number] PATIENT NAME : Vilma Gilbert ORDERING DR : Miguel Ruiz MD CLINICAL HX: Melena POST-OP DX: #1 Colitis #2 Colitis SPECIMEN INFO: #1 Cecum ascending biopsies #2 Descending sigmoid biopsies GROSS DESCRIPTION: #1 Received in formalin labeled with the patients name VILMA GILBERT and #1 consists of two benson mucosal tissue fragments together measuring 0.8 x 0.2 cm. Submitted in cassette #1.#2 Received in formalin labeled with the patients name VILMA GILBERT and #2 consists of three benson mucosal tissue fragments collectively measuring 1.0 x 0.3 cm. Submitted in cassette #2. DIAGNOSIS FOR VILMA GILBERT: #1 CECUM AND ASCENDING COLON, BIOPSIES: Superficial neutrophilic debris consistent with resolving acute self limited colitis. No granuloma formation, cryptitis, crypt abscesses or malignancy identified.#2 DESCENDING/SIGMOID BIOPSIES: Superficial neutrophilic debris consistent with resolving acute self limited colitis. No granuloma formation, cryptitis, crypt abscesses or malignancy identified. COLLECTED DATE: 05/13/2017 [facility] REPORT DATE: 05/14/2017 ELECTRONICALLY SIGNED BY: Ricardo Chris III, M.D. 05/14/2017 - 11:26:50 [email or web address]
== END 2017-05-14 19:55 | disposition home or self-care (01) | DRG 377 ==
LOC: EDBD → EDUNIT# → N.ED 15:36 → SUATTDRO 17:31 → N.EDINP 17:31 → N.CC 19:12 → N.4E 05-13 18:06
PROVIDERS: ADMIT Phlebology; ATTEND Internal Medicine Geriatric Medicine
PROC: COLONBX (2017-05-13 08:35)

== ENCOUNTER 2017-07-21 21:58 | Inpatient (IN) ==
[2017-07-21] MEDS ORDERED: ALUM/MAG/SIMETH/LIDO VISC 1:1 30 ML BOTTLE PO STA ×2 (22:24→22:40)
[2017-07-21] MEDS ORDERED: ASPIRIN 325 MG TABLET PO STA (22:24)
[2017-07-21] MEDS ORDERED: ONDANSETRON 4 MG/2 ML VIAL IV STA (22:24)
[2017-07-21] MEDS ORDERED: PANTOPRAZOLE 40 MG VIAL IV STA (22:39)
[2017-07-21] MEDS ORDERED: PANTOPRAZOLE 40 MG VIAL IV ONE (22:55)
[2017-07-21] MEDS ORDERED: ONDANSETRON 4 MG/2 ML VIAL ONE (22:55)
[2017-07-21 23:48] LABS: Basophils % 0.1 % (0.0-0.8); Eosinophils # 0.1 10*3/uL (0.0-0.87); Eosinophils % 0.7 % (0.00-10.9); Hemoglobin 6.6 GM/DL (12.0-16.0); Immature Granulocytes % 1.2 %; Immature Granulocytes Absolute 0.16 #; Lymphocytes # 1.7 10*3/uL (1.4-4.0); Lymphocytes % 13.1 % (21.3-54.2); Mean Corpuscular HGB Conc 31.4 GM/DL (32-36); Mean Corpuscular Hemoglobin 32 PG (27-34); Mean Corpuscular Volume 102.4 FL (87-102); Mean Platelet Volume 10.7 FL (9.6-12.0); Monocytes # 0.5 10*3/uL (0.11-0.8); Monocytes % 3.6 % (1.7-12.7); Neutrophils # 10.5 10*3/uL (1.4-7.4); Neutrophils % 81.3 % (38.7-73.9); Platelet Count 62 T/CUMM (130-400); Red Blood Count 2.05 MC/CUMM (3.8-5.5); Red Cell Distribution Width 18.2 % (9.3-17.3); White Blood Count 12.9 T/CUMM (4-12)
[2017-07-21 23:58] LABS: INR 1.2; PT Patient Result 12.2 SECS
[2017-07-22 00:12] LABS: Apearance,Urine CLOUDY (Clear); Bacteria,Urine Many /HPF (Few); Bilirubin,Urine Negative (Negative); Blood, Urine Large mg/dL (Negative); Glucose,Urine (UA) Negative (Negative); Ketones,Urine Negative (Negative); Nitrite,Urine Negative (Negative); Protein,Urine 100 MG/DL; RBC,Urine 358 /HPF (0-4); Urine Color Yellow (Yellow); Urine Specific Gravity 1.008 (1.001-1.035); Urine Urobilinogen < 2.0 EU/DL (0.2-1.0); WBC,Urine 1067 /HPF (0-6)
[2017-07-22 00:20] LABS: Albumin 1.9 G/DL (3.4-5.0); Calcium 6.9 MG/DL (8.5-10.1); Magnesium 2.2 MG/DL (1.8-2.4); Osmolality,Calculated 294.1 MOS/KG (273-304); Potassium 5.2 MMOL/L (3.5-5.1); Total Protein 4.7 G/DL (6.4-8.3)
[2017-07-22] MEDS ORDERED: metroNIDAZOLE INJ 500 MG in PREMIX 1 EACH IV STA (00:33)
[2017-07-22] MEDS ORDERED: cefTRIAXone 2,000 MG in SODIUM CHLORIDE 0.9% 100 ML IV STA (00:33)
[2017-07-22] MEDS ORDERED: SODIUM CHLORIDE 0.9% 250 ML IV PRN (00:34)
[2017-07-22] MEDS ORDERED: metroNIDAZOLE 500 MG/100 ML PREMIX IV ONE (00:59)
[2017-07-22] MEDS ORDERED: MORPHINE 2 MG/1 ML SYRINGE IV PRN (00:59)
[2017-07-22] MEDS ORDERED: cefTRIAXone 1,000 MG VIAL ONE (00:59)
[2017-07-22] MEDS ORDERED: DEXTROSE 50% 25 GM/50 ML VIAL IV PRN (02:21)
[2017-07-22] MEDS ORDERED: GLUCAGON 1 MG VIAL IM PRN (02:21)
[2017-07-22 02:36] LABS: Anisocytosis 1+; Hypochromasia 1+; Lymphocytes 13 % (20-55); Platelet Estimate Decreased; Segmented Neutrophils 87 % (50-85); Total Cells Counted 100
[2017-07-22] MEDS: SODIUM CHLORIDE 0.9% 1,000 ML IV SCH (02:45)
[2017-07-22] MEDS ORDERED: SODIUM CHLORIDE 0.9% 250 ML IV ONE (03:35)
[2017-07-22] MEDS ORDERED: INSULIN REGULAR 100 UNIT/ML IV ONE (04:09)
[2017-07-22] MEDS ORDERED: NOREPINEPHRINE 4 MG/4 ML VIAL IV ONE ×3 (04:10→17:33)
[2017-07-22] MEDS: NOREPINEPHRINE 8 MG in SODIUM CHLORIDE 0.9% 242 ML IV SCH ×5 (04:21→23:51)
[2017-07-22 08:02] LABS: Basophils % 0.1 % (0.0-0.8); Eosinophils % 0.1 % (0.00-10.9); Hematocrit 31.7 VOL% (35.7-47.0); Immature Granulocytes % 2.8 %; Immature Granulocytes Absolute 0.77 #; Lymphocytes # 2.8 10*3/uL (1.4-4.0); Lymphocytes % 10.2 % (21.3-54.2); Mean Corpuscular HGB Conc 31.5 GM/DL (32-36); Mean Corpuscular Hemoglobin 32 PG (27-34); Mean Platelet Volume 12.1 FL (9.6-12.0); Monocytes # 1.2 10*3/uL (0.11-0.8); Monocytes % 4.3 % (1.7-12.7); NRBC # 0.05 10*3/uL; Neutrophils # 22.7 10*3/uL (1.4-7.4); Neutrophils % 82.5 % (38.7-73.9); Platelet Count 71 T/CUMM (130-400); Red Blood Count 3.17 MC/CUMM (3.8-5.5); Red Cell Distribution Width 18.3 % (9.3-17.3); White Blood Count 27.5 T/CUMM (4-12)
[2017-07-22] MEDS: SEVELAMER CARBONATE 800 MG TABLET PO SCH (08:05)
[2017-07-22] MEDS: INSULIN REGULAR 100 UNIT/ML SUBCUT SCH ×4 (08:05→21:35)
[2017-07-22] MEDS: FERROUS SULFATE 325 MG TABLET PO SCH ×2 (08:15→21:36)
[2017-07-22 08:42] LABS: Albumin 2.2 G/DL (3.4-5.0); Calcium 7.4 MG/DL (8.5-10.1); Osmolality,Calculated 296.8 MOS/KG (273-304); Potassium 5.1 MMOL/L (3.5-5.1); Total Protein 5.2 G/DL (6.4-8.3)
[2017-07-22 08:43] LABS: Troponin I Only 0.067 NG/ML (0.00-0.045)
[2017-07-22] MEDS: PANTOPRAZOLE 40 MG VIAL IV SCH (09:20)
[2017-07-22 09:48] LABS: Band Neutrophils 4 % (0-10); Lymphocytes 4 % (20-55); Macrocytosis 1+; Nucleated Red Blood Cells 1 (0-5); Platelet Estimate Decreased; Polychromasia Slight; Segmented Neutrophils 89 % (50-85); Target Cells Slight; Total Cells Counted 100
[2017-07-22] MEDS: ONDANSETRON 4 MG/2 ML VIAL IV PRN (10:33)
[2017-07-22] MEDS: metroNIDAZOLE INJ 500 MG in PREMIX 1 EACH IV SCH ×2 (10:49→17:40)
[2017-07-22 13:00] LABS: Hemoglobin 9.1 GM/DL (12.0-16.0)
[2017-07-22] MEDS ORDERED: SUCCINYLCHOLINE 200 MG/10 ML VIAL ONE (14:39)
[2017-07-22] MEDS ORDERED: PROPOFOL 1,000 MG/100 ML BOTTLE IV ONE (14:48)
[2017-07-22] MEDS ORDERED: VECURONIUM 10 MG VIAL IV ONE ×2 (15:16→16:01)
[2017-07-22] MEDS ORDERED: NEOSTIGMINE 10 MG/10 ML VIAL ONE (15:32)
[2017-07-22] MEDS ORDERED: GLYCOPYRROLATE 0.4 MG/2 ML VIAL ONE (15:33)
[2017-07-22] MEDS ORDERED: NEOSTIGMINE 10 MG/10 ML VIAL IV ONE (16:02)
[2017-07-22] MEDS ORDERED: GLYCOPYRROLATE 0.4 MG/2 ML VIAL IV ONE (16:03)
[2017-07-22] MEDS ORDERED: PROPOFOL 200 MG/20 ML VIAL IV ONE (16:08)
[2017-07-22] MEDS ORDERED: MIDAZOLAM 2 MG/2 ML VIAL ONE (16:08)
[2017-07-22] MEDS: PROPOFOL 1,000 MG/100 ML BOTTLE IV SCH (16:49)
[2017-07-22] MEDS: CALCIUM ACETATE 667 MG CAPSULE PO SCH (17:05)
[2017-07-23] MEDS: metroNIDAZOLE INJ 500 MG in PREMIX 1 EACH IV SCH ×3 (04:07→17:54)
[2017-07-23 05:15] LABS: Calcium 7.5 MG/DL (8.5-10.1); Osmolality,Calculated 314.3 MOS/KG (273-304); Potassium 4.4 MMOL/L (3.5-5.1)
[2017-07-23] MEDS: NOREPINEPHRINE 8 MG in SODIUM CHLORIDE 0.9% 242 ML IV SCH ×3 (08:14→22:02)
[2017-07-23] MEDS: SODIUM CHLORIDE 0.9% 1,000 ML IV SCH (08:14)
[2017-07-23] MEDS: SEVELAMER CARBONATE 800 MG TABLET PO SCH (08:16)
[2017-07-23] MEDS: INSULIN REGULAR 100 UNIT/ML SUBCUT SCH ×3 (08:47→17:23)
[2017-07-23] MEDS: CALCIUM ACETATE 667 MG CAPSULE PO SCH ×3 (09:38→17:53)
[2017-07-23] MEDS: FERROUS SULFATE 325 MG TABLET PO SCH (09:38)
[2017-07-23] MEDS: PANTOPRAZOLE 40 MG VIAL IV SCH (09:38)
[2017-07-23 10:38] LABS: Basophils # 0.1 10*3/uL (0.0-0.2); Basophils % 0.1 % (0.0-0.8); Eosinophils % 0.1 % (0.00-10.9); Hematocrit 25.7 VOL% (35.7-47.0); Hemoglobin 8.8 GM/DL (12.0-16.0); Immature Granulocytes % 1.6 %; Immature Granulocytes Absolute 0.56 #; Lymphocytes # 2.9 10*3/uL (1.4-4.0); Lymphocytes % 8.6 % (21.3-54.2); Mean Corpuscular HGB Conc 34.2 GM/DL (32-36); Mean Corpuscular Hemoglobin 32 PG (27-34); Mean Corpuscular Volume 92.4 FL (87-102); Mean Platelet Volume 10.3 FL (9.6-12.0); Monocytes # 1.3 10*3/uL (0.11-0.8); Monocytes % 3.9 % (1.7-12.7); Neutrophils # 29.2 10*3/uL (1.4-7.4); Neutrophils % 85.7 % (38.7-73.9); Platelet Count 93 T/CUMM (130-400); Red Blood Count 2.78 MC/CUMM (3.8-5.5); Red Cell Distribution Width 19.9 % (9.3-17.3); White Blood Count 34.2 T/CUMM (4-12)
[2017-07-23 11:04] LABS: Hypochromasia 1+; Lymphocytes 4 % (20-55); Ovalocytes Slight; Platelet Estimate Decreased; Segmented Neutrophils 93 % (50-85); Total Cells Counted 100
[2017-07-23 11:05] LABS: Macrocytosis Slight
[2017-07-23] MEDS ORDERED: VANCOMYCIN INJ 750 MG in SODIUM CHLORIDE 0.9% 250 ML IV PRN (13:29)
[2017-07-23] MEDS ORDERED: VANCOMYCIN INJ 1,500 MG in SODIUM CHLORIDE 0.9% 500 ML IV ONE (15:00)
[2017-07-23] MEDS: PROPOFOL 1,000 MG/100 ML BOTTLE IV SCH (16:55)
[2017-07-23] MEDS: PIPERACILLIN/TAZOBACTAM 2,250 MG in SODIUM CHLORIDE 0.9% 100 ML IV SCH (17:25)
[2017-07-24] MEDS: INSULIN REGULAR 100 UNIT/ML SUBCUT SCH ×5 (00:15→21:56)
[2017-07-24] MEDS: FERROUS SULFATE 325 MG TABLET PO SCH ×3 (00:15→21:56)
[2017-07-24] MEDS: metroNIDAZOLE INJ 500 MG in PREMIX 1 EACH IV SCH (01:03)
[2017-07-24] MEDS: PIPERACILLIN/TAZOBACTAM 2,250 MG in SODIUM CHLORIDE 0.9% 100 ML IV SCH ×2 (03:53→16:27)
[2017-07-24 06:03] LABS: Basophils % 0.2 % (0.0-0.8); Eosinophils % 0.2 % (0.00-10.9); Hematocrit 20.4 VOL% (35.7-47.0); Hemoglobin 6.8 GM/DL (12.0-16.0); Immature Granulocytes % 1.1 %; Immature Granulocytes Absolute 0.18 #; Lymphocytes # 1.7 10*3/uL (1.4-4.0); Lymphocytes % 10.3 % (21.3-54.2); Mean Corpuscular HGB Conc 33.3 GM/DL (32-36); Mean Corpuscular Hemoglobin 32 PG (27-34); Mean Corpuscular Volume 95.8 FL (87-102); Mean Platelet Volume 10.3 FL (9.6-12.0); Monocytes # 0.9 10*3/uL (0.11-0.8); Monocytes % 5.4 % (1.7-12.7); NRBC # 0.15 10*3/uL; Neutrophils # 13.9 10*3/uL (1.4-7.4); Neutrophils % 82.8 % (38.7-73.9); Platelet Count 51 T/CUMM (130-400); Red Blood Count 2.13 MC/CUMM (3.8-5.5); Red Cell Distribution Width 20.3 % (9.3-17.3); White Blood Count 16.8 T/CUMM (4-12)
[2017-07-24 06:30] LABS: Basophilic Stippling Slight; Giant Platelets Few; Hypochromasia 1+; Lymphocytes 10 % (20-55); Macrocytosis Slight; Nucleated Red Blood Cells 2 (0-5); Ovalocytes Slight; Platelet Estimate Decreased; Segmented Neutrophils 87 % (50-85); Total Cells Counted 100
[2017-07-24 06:35] LABS: Bilirubin,Total 1.1 MG/DL (0.2-1.0); Calcium 7.7 MG/DL (8.5-10.1); Osmolality,Calculated 295.8 MOS/KG (273-304); Potassium 3.9 MMOL/L (3.5-5.1); Total Protein 4.7 G/DL (6.4-8.3)
[2017-07-24] MEDS ORDERED: SODIUM CHLORIDE 0.9% 250 ML IV PRN (07:47)
[2017-07-24] MEDS: CALCIUM ACETATE 667 MG CAPSULE PO SCH ×3 (09:12→17:21)
[2017-07-24] MEDS: PANTOPRAZOLE 40 MG VIAL IV SCH (09:14)
[2017-07-24] MEDS ORDERED: EPOETIN ALFA 10,000 UNIT/1 ML VIAL SUBCUT ONE (13:52)
[2017-07-24] MEDS: NOREPINEPHRINE 8 MG in SODIUM CHLORIDE 0.9% 242 ML IV SCH (15:56)
[2017-07-24] MEDS: SODIUM CHLORIDE 0.9% 1,000 ML IV SCH (16:25)
[2017-07-24] MEDS ORDERED: diphenhydrAMINE 50 MG/1 ML VIAL IV ONE (23:52)
[2017-07-25] MEDS: ONDANSETRON 4 MG/2 ML VIAL IV PRN (00:08)
[2017-07-25 00:23] LABS: Hematocrit 19.4 VOL% (35.7-47.0)
[2017-07-25 00:25] LABS: Hemoglobin 6.4 GM/DL (12.0-16.0)
[2017-07-25 00:49] LABS: Albumin 1.8 G/DL (3.4-5.0); Calcium 7.5 MG/DL (8.5-10.1); Osmolality,Calculated 302.7 MOS/KG (273-304); Potassium 3.8 MMOL/L (3.5-5.1); Total Protein 4.7 G/DL (6.4-8.3)
[2017-07-25] MEDS: SODIUM CHLORIDE 0.9% 1,000 ML IV SCH ×3 (01:48→22:35)
[2017-07-25] MEDS: PIPERACILLIN/TAZOBACTAM 2,250 MG in SODIUM CHLORIDE 0.9% 100 ML IV SCH ×2 (01:48→15:44)
[2017-07-25 06:24] LABS: Basophils % 0.2 % (0.0-0.8); Eosinophils # 0.2 10*3/uL (0.0-0.87); Eosinophils % 1.3 % (0.00-10.9); Hematocrit 20.1 VOL% (35.7-47.0); Hemoglobin 6.8 GM/DL (12.0-16.0); Immature Granulocytes % 1.2 %; Immature Granulocytes Absolute 0.13 #; Lymphocytes # 1.2 10*3/uL (1.4-4.0); Lymphocytes % 10.8 % (21.3-54.2); Mean Corpuscular HGB Conc 33.8 GM/DL (32-36); Mean Corpuscular Hemoglobin 32 PG (27-34); Mean Corpuscular Volume 95.7 FL (87-102); Mean Platelet Volume 10.9 FL (9.6-12.0); Monocytes # 0.5 10*3/uL (0.11-0.8); Monocytes % 4.3 % (1.7-12.7); NRBC # 0.13 10*3/uL; Neutrophils # 9.3 10*3/uL (1.4-7.4); Neutrophils % 82.2 % (38.7-73.9); Platelet Count 40 T/CUMM (130-400); Red Cell Distribution Width 20.5 % (9.3-17.3); White Blood Count 11.3 T/CUMM (4-12)
[2017-07-25 06:30] LABS: Hypochromasia 1+
[2017-07-25 06:31] LABS: Macrocytosis 1+; Ovalocytes Slight
[2017-07-25 06:32] LABS: Platelet Estimate Decreased
[2017-07-25] MEDS: NOREPINEPHRINE 8 MG in SODIUM CHLORIDE 0.9% 242 ML IV SCH (06:38)
[2017-07-25 06:46] LABS: Calcium 7.4 MG/DL (8.5-10.1); Magnesium 2.4 MG/DL (1.8-2.4); Osmolality,Calculated 300.7 MOS/KG (273-304); Potassium 4.2 MMOL/L (3.5-5.1)
[2017-07-25] MEDS: PANTOPRAZOLE 40 MG VIAL IV SCH (08:08)
[2017-07-25] MEDS: INSULIN REGULAR 100 UNIT/ML SUBCUT SCH ×4 (08:08→21:12)
[2017-07-25] MEDS: FERROUS SULFATE 325 MG TABLET PO SCH ×2 (08:09→21:12)
[2017-07-25] MEDS: CALCIUM ACETATE 667 MG CAPSULE PO SCH ×3 (08:09→17:15)
[2017-07-25 08:18] LABS: Albumin 1.8 G/DL (3.4-5.0); Bilirubin,Direct 0.52 MG/DL (0.0-0.20); Bilirubin,Indirect 0.6 MG/DL (0.0-1.0); Bilirubin,Total 1.1 MG/DL (0.2-1.0); Total Protein 5.1 G/DL (6.4-8.3)
[2017-07-25] MEDS ORDERED: EPOETIN ALFA 10,000 UNIT/1 ML VIAL IV ONE (11:30)
[2017-07-25] MEDS ORDERED: VANCOMYCIN INJ 750 MG in SODIUM CHLORIDE 0.9% 150 ML IV ONE (17:00)
[2017-07-25] MEDS: ACETAMINOPHEN 325 MG TABLET PO PRN (17:29)
[2017-07-26] MEDS: PIPERACILLIN/TAZOBACTAM 2,250 MG in SODIUM CHLORIDE 0.9% 100 ML IV SCH (02:50)
[2017-07-26] MEDS: NOREPINEPHRINE 8 MG in SODIUM CHLORIDE 0.9% 242 ML IV SCH (06:57)
[2017-07-26 07:08] LABS: Albumin 1.8 G/DL (3.4-5.0); Bilirubin,Direct 0.56 MG/DL (0.0-0.20); Bilirubin,Indirect 0.7 MG/DL (0.0-1.0); Bilirubin,Total 1.3 MG/DL (0.2-1.0); Total Protein 4.6 G/DL (6.4-8.3)
[2017-07-26] MEDS: INSULIN REGULAR 100 UNIT/ML SUBCUT SCH ×4 (08:28→20:00)
[2017-07-26] MEDS: PANTOPRAZOLE 40 MG VIAL IV SCH (08:28)
[2017-07-26] MEDS: CALCIUM ACETATE 667 MG CAPSULE PO SCH ×3 (08:28→17:04)
[2017-07-26] MEDS: FERROUS SULFATE 325 MG TABLET PO SCH ×2 (08:28→21:06)
[2017-07-26] MEDS: PIPERACILLIN/TAZOBACTAM 2,250 MG in SODIUM CHLORIDE 0.9% 50 ML IV SCH (14:48)
[2017-07-26] MEDS: SODIUM CHLORIDE 0.9% 1,000 ML IV SCH (21:06)
[2017-07-27] MEDS: PIPERACILLIN/TAZOBACTAM 2,250 MG in SODIUM CHLORIDE 0.9% 50 ML IV SCH (03:00)
[2017-07-27] MEDS: SODIUM CHLORIDE 0.9% 1,000 ML IV SCH (03:28)
[2017-07-27] MEDS: CALCIUM ACETATE 667 MG CAPSULE PO SCH ×3 (08:44→17:12)
[2017-07-27] MEDS: FERROUS SULFATE 325 MG TABLET PO SCH ×2 (08:45→20:58)
[2017-07-27] MEDS: INSULIN REGULAR 100 UNIT/ML SUBCUT SCH ×4 (08:46→20:58)
[2017-07-27] MEDS: PANTOPRAZOLE 40 MG VIAL IV SCH (09:45)
[2017-07-27] MEDS ORDERED: diphenhydrAMINE CAP 25 MG CAPSULE PO ONE (12:00)
[2017-07-27] MEDS ORDERED: EPOETIN ALFA 10,000 UNIT/1 ML VIAL IV SCH (12:00)
[2017-07-27] MEDS ORDERED: SODIUM CHLORIDE 0.9% 1,000 ML IV PRN (12:47)
[2017-07-27 13:53] LABS: Hepatitis A Ab IgM Quant 0.13 Index; Hepatitis A Ab IgM Result Negative (Negative); Hepatitis B Core IgM Quant 0.14 Index; Hepatitis B Core IgM Result Negative (Negative); Hepatitis B Surface Ag Quant < 0.10 Index; Hepatitis B Surface Ag Result Negative (Negative); Hepatitis C Virus Ab Quant 0.14 Index; Hepatitis C Virus Ab Result Negative (Negative)
[2017-07-27 16:56] LABS: Basophils % 0.1 % (0.0-0.8); Eosinophils # 0.1 10*3/uL (0.0-0.87); Eosinophils % 1.6 % (0.00-10.9); Hematocrit 22.2 VOL% (35.7-47.0); Hemoglobin 7.1 GM/DL (12.0-16.0); Immature Granulocytes % 0.9 %; Immature Granulocytes Absolute 0.06 #; Lymphocytes # 1.3 10*3/uL (1.4-4.0); Lymphocytes % 18.7 % (21.3-54.2); Mean Corpuscular Hemoglobin 33 PG (27-34); Mean Corpuscular Volume 101.8 FL (87-102); Mean Platelet Volume 10.2 FL (9.6-12.0); Monocytes # 0.4 10*3/uL (0.11-0.8); Monocytes % 6.4 % (1.7-12.7); NRBC # 0.03 10*3/uL; Neutrophils # 4.9 10*3/uL (1.4-7.4); Neutrophils % 72.3 % (38.7-73.9); Platelet Count 53 T/CUMM (130-400); Red Blood Count 2.18 MC/CUMM (3.8-5.5); Red Cell Distribution Width 22.1 % (9.3-17.3); White Blood Count 6.8 T/CUMM (4-12)
[2017-07-27] MEDS: PIPERACILLIN/TAZOBACTAM 2,250 MG in SODIUM CHLORIDE 0.9% 100 ML IV SCH (17:11)
[2017-07-27] MEDS: ACETAMINOPHEN 325 MG TABLET PO PRN (17:14)
[2017-07-27 18:49] LABS: Band Neutrophils 2 % (0-10); Lymphocytes 20 % (20-55); Metamyelocytes 2 %; Myelocytes 1 %; Segmented Neutrophils 73 % (50-85); Total Cells Counted 100
[2017-07-27 18:50] LABS: Anisocytosis 1+; Hypochromasia 1+
[2017-07-27 18:51] LABS: Basophilic Stippling Few; Macrocytosis 1+; Platelet Estimate Decreased
[2017-07-27] MEDS ORDERED: VANCOMYCIN INJ 750 MG in SODIUM CHLORIDE 0.9% 150 ML IV ONE (21:00)
[2017-07-28] MEDS: PIPERACILLIN/TAZOBACTAM 2,250 MG in SODIUM CHLORIDE 0.9% 100 ML IV SCH (05:02)
[2017-07-28 06:28] LABS: Basophils % 0.3 % (0.0-0.8); Eosinophils # 0.2 10*3/uL (0.0-0.87); Eosinophils % 2.3 % (0.00-10.9); Immature Granulocytes % 0.9 %; Immature Granulocytes Absolute 0.06 #; Lymphocytes # 1.4 10*3/uL (1.4-4.0); Lymphocytes % 21.3 % (21.3-54.2); Mean Corpuscular HGB Conc 32.2 GM/DL (32-36); Mean Corpuscular Hemoglobin 31 PG (27-34); Mean Corpuscular Volume 96.8 FL (87-102); Mean Platelet Volume 10.6 FL (9.6-12.0); Monocytes # 0.5 10*3/uL (0.11-0.8); Monocytes % 7.3 % (1.7-12.7); NRBC # 0.03 10*3/uL; Neutrophils # 4.3 10*3/uL (1.4-7.4); Neutrophils % 67.9 % (38.7-73.9); Red Cell Distribution Width 22.9 % (9.3-17.3); White Blood Count 6.4 T/CUMM (4-12)
[2017-07-28 06:30] LABS: Hemoglobin 8.7 GM/DL (12.0-16.0); Platelet Count 48 T/CUMM (130-400); Red Blood Count 2.79 MC/CUMM (3.8-5.5)
[2017-07-28 06:59] LABS: Albumin 1.9 G/DL (3.4-5.0); Bilirubin,Direct 0.6 MG/DL (0.0-0.20); Bilirubin,Indirect 1.1 MG/DL (0.0-1.0); Bilirubin,Total 1.7 MG/DL (0.2-1.0)
[2017-07-28 07:18] LABS: Hypochromasia 1+; Microcytosis 1+; Ovalocytes Slight; Polychromasia Slight
[2017-07-28 07:19] LABS: Basophilic Stippling Slight; Platelet Estimate Decreased
[2017-07-28] MEDS: CALCIUM ACETATE 667 MG CAPSULE PO SCH ×2 (09:25→12:50)
[2017-07-28] MEDS: FERROUS SULFATE 325 MG TABLET PO SCH (09:25)
[2017-07-28] MEDS: PANTOPRAZOLE 40 MG VIAL IV SCH (09:25)
[2017-07-28] MEDS: INSULIN REGULAR 100 UNIT/ML SUBCUT SCH ×2 (09:25→13:02)
[2017-07-28 14:01] VITALS: BP 123/71
== END 2017-07-28 15:30 | disposition home or self-care (01) | DRG 871 ==
LOC: EDBD → EDUNIT# → N.ED 21:58 → SUATTDRO 23:58 → N.EDINP 07-22 00:59 → N.CC 07-22 01:23 → N.5E 07-27 16:19
PROVIDERS: ADMIT Internal Medicine; ATTEND Internal Medicine Geriatric Medicine
PROC: EGDWEBL (ICD-10-PCS; 2017-07-22 14:00)

== ENCOUNTER 2017-10-11 21:45 | Inpatient (IN) ==
[2017-10-11] MEDS ORDERED: ONDANSETRON 4 MG/2 ML VIAL IV STA (22:15)
[2017-10-11] MEDS ORDERED: METOCLOPRAMIDE 10 MG/2 ML VIAL IV STA (22:15)
[2017-10-11] MEDS ORDERED: PANTOPRAZOLE 40 MG VIAL IV STA (22:15)
[2017-10-11 22:23] LABS: Basophils % 0.1 % (0.0-0.8); Eosinophils # 0.1 10*3/uL (0.0-0.87); Hematocrit 23.7 VOL% (35.7-47.0); Hemoglobin 7.7 GM/DL (12.0-16.0); Immature Granulocytes % 1.5 %; Immature Granulocytes Absolute 0.16 #; Lymphocytes # 1.4 10*3/uL (1.4-4.0); Lymphocytes % 12.7 % (21.3-54.2); Mean Corpuscular HGB Conc 32.5 GM/DL (32-36); Mean Corpuscular Hemoglobin 32 PG (27-34); Mean Corpuscular Volume 98.3 FL (87-102); Mean Platelet Volume 11.8 FL (9.6-12.0); Monocytes # 0.8 10*3/uL (0.11-0.8); Monocytes % 6.9 % (1.7-12.7); Neutrophils # 8.5 10*3/uL (1.4-7.4); Neutrophils % 77.8 % (38.7-73.9); Platelet Count 72 T/CUMM (130-400); Red Blood Count 2.41 MC/CUMM (3.8-5.5); Red Cell Distribution Width 17.4 % (9.3-17.3); White Blood Count 10.9 T/CUMM (4-12)
[2017-10-11] MEDS ORDERED: PANTOPRAZOLE 40 MG VIAL IV ONE (22:32)
[2017-10-11] MEDS ORDERED: ONDANSETRON 4 MG/2 ML VIAL ONE (22:33)
[2017-10-11] MEDS ORDERED: METOCLOPRAMIDE 10 MG/2 ML VIAL ONE (22:33)
[2017-10-11 22:34] LABS: INR 1.2; PT Patient Result 12.3 SECS; Partial Thromboplastin Time 29.6 SECS (0-40)
[2017-10-11 22:43] LABS: Alanine Aminotransferase 28 U/L (13-56); Albumin 1.8 G/DL (3.4-5.0); Alkaline Phosphatase 212 U/L (45-117); Aspartate Amino Transferase 48 U/L (0-37); Blood Urea Nitrogen 28 MG/DL (7-18); Calcium 7.1 MG/DL (8.5-10.1); Glucose 272 MG/DL (74-106); Osmolality,Calculated 292.5 MOS/KG (273-304); Potassium 3.8 MMOL/L (3.5-5.1); Sodium 139 MMOL/L (136-145); Total Protein 5.3 G/DL (6.4-8.3); Troponin I Only 0.023 NG/ML (0.00-0.045)
[2017-10-11 22:55] LABS: Band Neutrophils 2 % (0-10); Eosinophils 2 % (0-10); Lymphocytes 11 % (20-55); Segmented Neutrophils 84 % (50-85); Total Cells Counted 100
[2017-10-11 22:56] LABS: Anisocytosis 1+; Hypochromasia Slight; Microcytosis Slight; Ovalocytes Few; Platelet Estimate Decreased
[2017-10-12] MEDS ORDERED: ONDANSETRON 4 MG/2 ML VIAL IV PRN (01:38)
[2017-10-12] MEDS ORDERED: OCTREOTIDE 100 MCG/ML SYRINGE IV ONE ×2 (02:00→03:00)
[2017-10-12] MEDS ORDERED: GLUCAGON 1 MG VIAL IM PRN (02:19)
[2017-10-12] MEDS ORDERED: DEXTROSE 50% 25 GM/50 ML VIAL IV PRN (02:19)
[2017-10-12] MEDS: OCTREOTIDE 500 MCG in SODIUM CHLORIDE 0.9% 100 ML IV SCH ×3 (03:00→23:25)
[2017-10-12] MEDS: PANTOPRAZOLE INJ 200 MG in SODIUM CHLORIDE 0.9% 250 ML IV SCH (03:00)
[2017-10-12 03:32] LABS: Hemoglobin 7.3 GM/DL (12.0-16.0)
[2017-10-12 04:48] LABS: Eosinophils % 0.3 % (0.00-10.9); Immature Granulocytes % 1.2 %; Immature Granulocytes Absolute 0.11 #; Lymphocytes # 1.1 10*3/uL (1.4-4.0); Lymphocytes % 12.2 % (21.3-54.2); Mean Corpuscular HGB Conc 31.8 GM/DL (32-36); Mean Corpuscular Hemoglobin 32 PG (27-34); Mean Corpuscular Volume 99.1 FL (87-102); Mean Platelet Volume 11.2 FL (9.6-12.0); Monocytes # 0.4 10*3/uL (0.11-0.8); Monocytes % 4.5 % (1.7-12.7); Neutrophils # 7.5 10*3/uL (1.4-7.4); Neutrophils % 81.8 % (38.7-73.9); Red Blood Count 2.22 MC/CUMM (3.8-5.5); Red Cell Distribution Width 17.7 % (9.3-17.3); White Blood Count 9.2 T/CUMM (4-12)
[2017-10-12 04:51] LABS: Platelet Count 54 T/CUMM (130-400)
[2017-10-12 05:09] LABS: Osmolality,Calculated 298.4 MOS/KG (273-304); Potassium 5.5 MMOL/L (3.5-5.1)
[2017-10-12 05:23] LABS: Giant Platelets Few; Hypochromasia 1+; Microcytosis Slight; Ovalocytes Slight; Platelet Estimate Decreased
[2017-10-12] MEDS ORDERED: SODIUM CHLORIDE 0.9% 500 ML IV STA (06:16)
[2017-10-12] MEDS ORDERED: SODIUM CHLORIDE 0.9% 1,000 ML IV PRN (06:23)
[2017-10-12] MEDS: INSULIN LISPRO 100 UNIT/ML SUBCUT SCH ×3 (06:31→20:20)
[2017-10-12] MEDS ORDERED: INSULIN REGULAR 100 UNIT/ML ONE (06:38)
[2017-10-12 08:01] LABS: Hematocrit 22.2 VOL% (35.7-47.0)
[2017-10-12 22:06] LABS: Hematocrit 28.3 VOL% (35.7-47.0)
[2017-10-12 22:09] LABS: Hemoglobin 9.3 GM/DL (12.0-16.0)
[2017-10-13] MEDS: INSULIN LISPRO 100 UNIT/ML SUBCUT SCH ×4 (00:43→17:33)
[2017-10-13] MEDS ORDERED: MORPHINE 10 MG/1 ML VIAL IV ONE (03:30)
[2017-10-13] MEDS: PANTOPRAZOLE INJ 200 MG in SODIUM CHLORIDE 0.9% 250 ML IV SCH (03:37)
[2017-10-13 05:33] LABS: Basophils % 0.2 % (0.0-0.8); Eosinophils # 0.1 10*3/uL (0.0-0.87); Eosinophils % 0.5 % (0.00-10.9); Hematocrit 26.4 VOL% (35.7-47.0); Hemoglobin 8.9 GM/DL (12.0-16.0); Lymphocytes # 1.4 10*3/uL (1.4-4.0); Lymphocytes % 13.7 % (21.3-54.2); Mean Corpuscular HGB Conc 33.7 GM/DL (32-36); Mean Corpuscular Hemoglobin 31 PG (27-34); Mean Corpuscular Volume 93.3 FL (87-102); Mean Platelet Volume 10.7 FL (9.6-12.0); Monocytes # 0.8 10*3/uL (0.11-0.8); Neutrophils # 7.7 10*3/uL (1.4-7.4); Neutrophils % 76.6 % (38.7-73.9); Platelet Count 42 T/CUMM (130-400); Red Blood Count 2.83 MC/CUMM (3.8-5.5); Red Cell Distribution Width 17.7 % (9.3-17.3); White Blood Count 10.1 T/CUMM (4-12)
[2017-10-13 06:17] LABS: Bilirubin,Total 2.4 MG/DL (0.2-1.0); Calcium 7.6 MG/DL (8.5-10.1); Osmolality,Calculated 292.5 MOS/KG (273-304); Potassium 3.9 MMOL/L (3.5-5.1); Total Protein 5.4 G/DL (6.4-8.3)
[2017-10-13] MEDS: OCTREOTIDE 500 MCG in SODIUM CHLORIDE 0.9% 100 ML IV SCH ×2 (08:00→19:44)
[2017-10-14] MEDS: INSULIN LISPRO 100 UNIT/ML SUBCUT SCH ×4 (00:28→17:37)
[2017-10-14] MEDS: PANTOPRAZOLE INJ 200 MG in SODIUM CHLORIDE 0.9% 250 ML IV SCH (02:25)
[2017-10-14] MEDS: OCTREOTIDE 500 MCG in SODIUM CHLORIDE 0.9% 100 ML IV SCH ×2 (04:48→15:25)
[2017-10-14 08:54] LABS: Hematocrit 25.6 VOL% (35.7-47.0); Hemoglobin 8.4 GM/DL (12.0-16.0)
[2017-10-14] MEDS: cefTRIAXone 1,000 MG in SYRINGE 1 EACH IV SCH (17:37)
[2017-10-14] MEDS: INSULIN GLARGINE 100 UNIT/ML SUBCUT SCH (21:40)
[2017-10-15] MEDS: PANTOPRAZOLE INJ 200 MG in SODIUM CHLORIDE 0.9% 250 ML IV SCH (03:32)
[2017-10-15] MEDS: OCTREOTIDE 500 MCG in SODIUM CHLORIDE 0.9% 100 ML IV SCH ×3 (03:32→16:49)
[2017-10-15 03:33] LABS: Barbiturates Screen,Urine Negative (Negative); Benzodiazepines Screen,Urine Negative (Negative); Cannabinoid Screen,Urine Negative (Negative); Opiate Screen,Urine Positive (Negative); Phencyclidine Screen,Urine Negative (Negative)
[2017-10-15] MEDS ORDERED: SODIUM CHLORIDE 0.9% 1,000 ML IV PRN (08:27)
[2017-10-15] MEDS ORDERED: FUROSEMIDE 20 MG/2 ML VIAL IV PRN (08:27)
[2017-10-15] MEDS ORDERED: HYDROcod/ACETAMIN 7.5-325 MG/15 ML UDCUP PO PRN (08:34)
[2017-10-15] MEDS: INSULIN LISPRO 100 UNIT/ML SUBCUT SCH ×3 (10:00→17:39)
[2017-10-15] MEDS ORDERED: LIDOCAINE 2% 5 ML VIAL ONE (10:50)
[2017-10-15] MEDS ORDERED: PROPOFOL 200 MG/20 ML VIAL IV ONE (10:50)
[2017-10-15] MEDS: cefTRIAXone 1,000 MG in SYRINGE 1 EACH IV SCH (16:49)
[2017-10-15] MEDS: INSULIN GLARGINE 100 UNIT/ML SUBCUT SCH (22:13)
[2017-10-15] MEDS ORDERED: KETOROLAC 30 MG/1 ML VIAL IV ONE (22:45)
[2017-10-15] MEDS ORDERED: ALUM/MAG/SIMETH/LIDO VISC 1:1 30 ML BOTTLE PO ONE (22:45)
[2017-10-16 01:22] LABS: Basophils % 0.2 % (0.0-0.8); Eosinophils # 0.1 10*3/uL (0.0-0.87); Eosinophils % 1.7 % (0.00-10.9); Hemoglobin 8.4 GM/DL (12.0-16.0); Immature Granulocytes % 0.8 %; Immature Granulocytes Absolute 0.05 #; Lymphocytes % 15.6 % (21.3-54.2); Mean Corpuscular HGB Conc 32.3 GM/DL (32-36); Mean Corpuscular Hemoglobin 32 PG (27-34); Mean Corpuscular Volume 97.4 FL (87-102); Mean Platelet Volume 11.1 FL (9.6-12.0); Monocytes # 0.4 10*3/uL (0.11-0.8); Monocytes % 6.6 % (1.7-12.7); Neutrophils # 4.8 10*3/uL (1.4-7.4); Neutrophils % 75.1 % (38.7-73.9); Platelet Count 41 T/CUMM (130-400); Red Blood Count 2.67 MC/CUMM (3.8-5.5); Red Cell Distribution Width 17.5 % (9.3-17.3); White Blood Count 6.3 T/CUMM (4-12)
[2017-10-16 01:43] LABS: Albumin 2.1 G/DL (3.4-5.0); Bilirubin,Total 1.5 MG/DL (0.2-1.0); Calcium 7.5 MG/DL (8.5-10.1); Osmolality,Calculated 286.5 MOS/KG (273-304); Potassium 3.4 MMOL/L (3.5-5.1); Total Protein 5.7 G/DL (6.4-8.3)
[2017-10-16] MEDS: OCTREOTIDE 500 MCG in SODIUM CHLORIDE 0.9% 100 ML IV SCH ×2 (01:47→10:32)
[2017-10-16 07:36] LABS: Basophils % 0.2 % (0.0-0.8); Eosinophils # 0.1 10*3/uL (0.0-0.87); Eosinophils % 2.6 % (0.00-10.9); Hematocrit 24.2 VOL% (35.7-47.0); Hemoglobin 8.3 GM/DL (12.0-16.0); Immature Granulocytes % 0.9 %; Immature Granulocytes Absolute 0.04 #; Lymphocytes % 24.2 % (21.3-54.2); Mean Corpuscular HGB Conc 34.3 GM/DL (32-36); Mean Corpuscular Hemoglobin 32 PG (27-34); Mean Corpuscular Volume 94.5 FL (87-102); Monocytes # 0.3 10*3/uL (0.11-0.8); Monocytes % 7.7 % (1.7-12.7); Neutrophils # 2.8 10*3/uL (1.4-7.4); Neutrophils % 64.4 % (38.7-73.9); Red Blood Count 2.56 MC/CUMM (3.8-5.5); Red Cell Distribution Width 17.7 % (9.3-17.3); White Blood Count 4.3 T/CUMM (4-12)
[2017-10-16 07:45] LABS: Platelet Count 39 T/CUMM (130-400)
[2017-10-16 07:48] LABS: Giant Platelets Few; Hypochromasia 1+; Ovalocytes Slight; Platelet Estimate Decreased
[2017-10-16 07:49] LABS: Microcytosis Slight
[2017-10-16] MEDS: INSULIN LISPRO 100 UNIT/ML SUBCUT SCH ×3 (08:50→16:31)
[2017-10-16] MEDS: PROPRANOLOL 10 MG TABLET PO SCH ×2 (15:36→21:52)
[2017-10-16] MEDS: cefTRIAXone 1,000 MG in SYRINGE 1 EACH IV SCH (16:31)
[2017-10-16] MEDS: INSULIN GLARGINE 100 UNIT/ML SUBCUT SCH (21:52)
[2017-10-16] MEDS: PANTOPRAZOLE 40 MG VIAL IV SCH (21:53)
[2017-10-17 06:55] LABS: Basophils % 0.2 % (0.0-0.8); Eosinophils # 0.2 10*3/uL (0.0-0.87); Eosinophils % 2.7 % (0.00-10.9); Hematocrit 29.7 VOL% (35.7-47.0); Hemoglobin 9.9 GM/DL (12.0-16.0); Immature Granulocytes % 0.9 %; Immature Granulocytes Absolute 0.05 #; Lymphocytes # 1.2 10*3/uL (1.4-4.0); Lymphocytes % 20.3 % (21.3-54.2); Mean Corpuscular HGB Conc 33.3 GM/DL (32-36); Mean Corpuscular Hemoglobin 31 PG (27-34); Mean Corpuscular Volume 93.1 FL (87-102); Mean Platelet Volume 10.4 FL (9.6-12.0); Monocytes # 0.5 10*3/uL (0.11-0.8); Neutrophils # 3.9 10*3/uL (1.4-7.4); Neutrophils % 67.9 % (38.7-73.9); Red Blood Count 3.19 MC/CUMM (3.8-5.5); Red Cell Distribution Width 17.4 % (9.3-17.3)
[2017-10-17 07:08] LABS: White Blood Count 5.7 T/CUMM (4-12)
[2017-10-17 07:09] LABS: Platelet Count 39 T/CUMM (130-400)
[2017-10-17 07:22] LABS: Macrocytosis 1+; Platelet Estimate Decreased
[2017-10-17] MEDS: INSULIN LISPRO 100 UNIT/ML SUBCUT SCH ×3 (09:08→17:20)
[2017-10-17] MEDS: PANTOPRAZOLE 40 MG VIAL IV SCH ×2 (09:08→20:21)
[2017-10-17] MEDS: PROPRANOLOL 10 MG TABLET PO SCH ×3 (09:08→20:21)
[2017-10-17 16:48] LABS: Hematocrit 30.9 VOL% (35.7-47.0)
[2017-10-17] MEDS: INSULIN GLARGINE 100 UNIT/ML SUBCUT SCH (20:20)
[2017-10-18 01:21] LABS: Hematocrit 31.3 VOL% (35.7-47.0); Hemoglobin 10.1 GM/DL (12.0-16.0)
[2017-10-18 01:22] LABS: Basophils % 0.2 % (0.0-0.8); Eosinophils # 0.1 10*3/uL (0.0-0.87); Eosinophils % 2.4 % (0.00-10.9); Hematocrit 30.7 VOL% (35.7-47.0); Hemoglobin 10.1 GM/DL (12.0-16.0); Immature Granulocytes % 0.9 %; Immature Granulocytes Absolute 0.05 #; Lymphocytes # 1.2 10*3/uL (1.4-4.0); Lymphocytes % 22.7 % (21.3-54.2); Mean Corpuscular HGB Conc 32.9 GM/DL (32-36); Mean Corpuscular Hemoglobin 32 PG (27-34); Mean Corpuscular Volume 96.5 FL (87-102); Mean Platelet Volume 10.3 FL (9.6-12.0); Monocytes # 0.3 10*3/uL (0.11-0.8); Monocytes % 5.5 % (1.7-12.7); Neutrophils # 3.7 10*3/uL (1.4-7.4); Neutrophils % 68.3 % (38.7-73.9); Platelet Count 42 T/CUMM (130-400); Red Blood Count 3.18 MC/CUMM (3.8-5.5); Red Cell Distribution Width 17.2 % (9.3-17.3); White Blood Count 5.4 T/CUMM (4-12)
[2017-10-18 08:11] LABS: Hematocrit 28.8 VOL% (35.7-47.0); Hemoglobin 9.6 GM/DL (12.0-16.0)
[2017-10-18] MEDS: PROPRANOLOL 10 MG TABLET PO SCH (09:05)
[2017-10-18] MEDS: PANTOPRAZOLE 40 MG VIAL IV SCH (09:06)
[2017-10-18] MEDS: INSULIN LISPRO 100 UNIT/ML SUBCUT SCH ×2 (09:06→13:31)
[2017-10-18 11:34] VITALS: BP 111/55
== END 2017-10-18 13:36 | disposition home or self-care (01) | DRG 432 ==
LOC: EDBD → EDUNIT# → N.ED 21:45 → SUATTDRO 10-12 00:50 → N.EDINP 10-12 00:50 → N.ICU 10-12 15:13 → N.5E 10-13 10:50
PROVIDERS: ADMIT Internal Medicine; ATTEND Internal Medicine
PROC: EGDWEBL (ICD-10-PCS; 2017-10-15 07:35)

== ENCOUNTER 2017-12-02 18:37 | Inpatient (IN) ==
[2017-12-02] MEDS ORDERED: fentaNYL 100 MCG/2 ML VIAL IV STA (19:01)
[2017-12-02] MEDS ORDERED: VANCOMYCIN INJ 1,500 MG in SODIUM CHLORIDE 0.9% 500 ML IV STA (19:31)
[2017-12-02] MEDS ORDERED: CLINDAMYCIN INJ 900 MG in PREMIX 1 EACH IV STA (19:31)
[2017-12-02] MEDS ORDERED: CLINDAMYCIN INJ 50 ML IV ONE (20:31)
[2017-12-02] MEDS ORDERED: BUPIVACAINE 0.25% 50 ML VIAL ONE (20:52)
[2017-12-02 21:07] LABS: Basophils % 0.1 % (0.0-0.8); Eosinophils % 0.1 % (0.00-10.9); Hematocrit 28.4 VOL% (35.7-47.0); Hemoglobin 9.3 GM/DL (12.0-16.0); Immature Granulocytes % 1.4 %; Immature Granulocytes Absolute 0.23 #; Lymphocytes # 1.1 10*3/uL (1.4-4.0); Lymphocytes % 6.8 % (21.3-54.2); Mean Corpuscular HGB Conc 32.7 GM/DL (32-36); Mean Corpuscular Hemoglobin 31 PG (27-34); Mean Corpuscular Volume 94.4 FL (87-102); Mean Platelet Volume 11.3 FL (9.6-12.0); Neutrophils # 14.2 10*3/uL (1.4-7.4); Neutrophils % 85.6 % (38.7-73.9); Red Blood Count 3.01 MC/CUMM (3.8-5.5); Red Cell Distribution Width 14.9 % (9.3-17.3); White Blood Count 16.6 T/CUMM (4-12)
[2017-12-02 21:14] LABS: Platelet Count 37 T/CUMM (130-400)
[2017-12-02] MEDS ORDERED: fentaNYL 100 MCG/2 ML VIAL ONE ×2 (21:18→23:28)
[2017-12-02 21:28] LABS: Alanine Aminotransferase 17 U/L (13-56); Albumin 1.9 G/DL (3.4-5.0); Alkaline Phosphatase 156 U/L (45-117); Aspartate Amino Transferase 20 U/L (0-37); Blood Urea Nitrogen 53 MG/DL (7-18); Calcium 7.5 MG/DL (8.5-10.1); Glucose 323 MG/DL (74-106); Osmolality,Calculated 291.4 MOS/KG (273-304); Potassium 3.3 MMOL/L (3.5-5.1); Sodium 133 MMOL/L (136-145); Total Protein 5.6 G/DL (6.4-8.3)
[2017-12-02 21:33] LABS: Band Neutrophils 4 % (0-10); Eosinophils 2 % (0-10); Hypochromasia Slight; Lymphocytes 6 % (20-55); Segmented Neutrophils 81 % (50-85); Total Cells Counted 100
[2017-12-02 21:34] LABS: Platelet Estimate Decreased
[2017-12-02 21:36] LABS: Lactic Acid 2.8 MMOL/L (0.4-2.0)
[2017-12-02] MEDS ORDERED: ONDANSETRON 4 MG/2 ML VIAL IV PRN (21:48)
[2017-12-02] MEDS ORDERED: ALBUTEROL 2.5 MG/3 ML NEB RESP TX PRN (21:48)
[2017-12-02] MEDS ORDERED: PHENYLEPHRINE DRIP 40 MG/250 ML PREMIX IV ONE (23:14)
[2017-12-02] MEDS ORDERED: SEVOFLURANE 1 UNIT/15 MINUTE INH ONE (23:28)
[2017-12-02] MEDS ORDERED: PROPOFOL 200 MG/20 ML VIAL IV ONE (23:28)
[2017-12-02] MEDS ORDERED: MIDAZOLAM 2 MG/2 ML VIAL ONE (23:28)
[2017-12-02] MEDS ORDERED: ROCURONIUM 100 MG/10 ML VIAL IV ONE (23:29)
[2017-12-02] MEDS ORDERED: ONDANSETRON 4 MG/2 ML VIAL ONE (23:30)
[2017-12-02] MEDS ORDERED: SODIUM CHLORIDE 0.9% 250 ML IV ONE (23:30)
[2017-12-02] MEDS ORDERED: KETOROLAC 30 MG/1 ML VIAL ONE (23:30)
[2017-12-02] MEDS ORDERED: DEXAMETHASONE 10 MG/1 ML VIAL ONE (23:30)
[2017-12-02] MEDS ORDERED: PHENYLEPHRINE 1 MG/10 ML SYRINGE IV ONE (23:30)
[2017-12-02] MEDS ORDERED: ePHEDrine 50 MG/ML AMP ONE (23:30)
[2017-12-02] MEDS ORDERED: HEPARIN 10,000 UNIT/10 ML VIAL ONE (23:30)
[2017-12-02] MEDS: PHENYLEPHRINE DRIP 40 MG/250 ML PREMIX IV SCH (23:45)
[2017-12-02] MEDS ORDERED: GENTAMICIN INJ 80 MG in PREMIX 1 EACH IV PRN (23:46)
[2017-12-02 23:50] LABS: ABG Base Excess -5.9 MMOL/L (-2.5-2.5); ABG HCO3 19.6 MMOL/L (20-26); ABG Oxygen Saturation 99.9 % (95-100); ABG PCO2 38.8 MM HG (35-48); ABG PH 7.317 (7.35-7.45); ABG TCO2 18.2 MMOL/L (23-27)
[2017-12-03] MEDS ORDERED: PENICILLIN G POTASSIUM INJ 4,000,000 UNIT in SODIUM CHLORIDE 0.9% 100 ML IV ONE
[2017-12-03] MEDS ORDERED: GENTAMICIN INJ 120 MG in PREMIX 1 EACH IV ONE (00:30)
[2017-12-03] MEDS ORDERED: DEXTROSE 50% 25 GM/50 ML VIAL IV PRN (00:40)
[2017-12-03] MEDS ORDERED: GLUCAGON 1 MG VIAL IM PRN (00:40)
[2017-12-03] MEDS: PROPOFOL 1,000 MG/100 ML BOTTLE IV SCH (03:20)
[2017-12-03 04:47] LABS: ABG Base Excess -11.4 MMOL/L (-2.5-2.5); ABG HCO3 15.4 MMOL/L (20-26); ABG Oxygen Saturation 99.7 % (95-100); ABG PCO2 40.1 MM HG (35-48)
[2017-12-03] MEDS: CLINDAMYCIN INJ 900 MG in PREMIX 1 EACH IV SCH ×3 (04:48→20:30)
[2017-12-03 04:56] LABS: ABG PH 7.208 (7.35-7.45)
[2017-12-03 05:05] LABS: Basophils # 0.1 10*3/uL (0.0-0.2); Basophils % 0.3 % (0.0-0.8); Hematocrit 30.7 VOL% (35.7-47.0); Hemoglobin 10.1 GM/DL (12.0-16.0); Immature Granulocytes % 3.5 %; Immature Granulocytes Absolute 1.51 #; Lymphocytes # 1.8 10*3/uL (1.4-4.0); Mean Corpuscular HGB Conc 32.9 GM/DL (32-36); Mean Corpuscular Hemoglobin 32 PG (27-34); Mean Corpuscular Volume 97.2 FL (87-102); Monocytes # 0.9 10*3/uL (0.11-0.8); Monocytes % 1.9 % (1.7-12.7); Neutrophils # 39.5 10*3/uL (1.4-7.4); Neutrophils % 90.3 % (38.7-73.9); Red Blood Count 3.16 MC/CUMM (3.8-5.5)
[2017-12-03] MEDS ORDERED: SODIUM BICARBONATE 50 MEQ/50 ML SYRINGE IV ONE ×2 (05:06→06:53)
[2017-12-03] MEDS ORDERED: SODIUM CHLORIDE 0.9% 500 ML IV ONE (05:08)
[2017-12-03 05:12] LABS: Lactic Acid 7.2 MMOL/L (0.4-2.0)
[2017-12-03 05:15] LABS: Platelet Count 97 T/CUMM (130-400)
[2017-12-03 05:17] LABS: White Blood Count 43.7 T/CUMM (4-12)
[2017-12-03 05:29] LABS: Band Neutrophils 10 % (0-10); Lymphocytes 3 % (20-55); Segmented Neutrophils 86 % (50-85); Total Cells Counted 100
[2017-12-03 05:30] LABS: Hypochromasia Slight
[2017-12-03] MEDS ORDERED: NOREPINEPHRINE 8 MG in SODIUM CHLORIDE 0.9% 242 ML IV SCH (05:30)
[2017-12-03 05:31] LABS: Burr Cells Slight; Microcytosis 1+; Platelet Estimate Decreased; Polychromasia Slight
[2017-12-03] MEDS: PHENYLEPHRINE INJ 160 MG in SODIUM CHLORIDE 0.9% 234 ML IV SCH (05:54)
[2017-12-03 06:14] LABS: Albumin 2.1 G/DL (3.4-5.0); Bilirubin,Total 1.7 MG/DL (0.2-1.0); Calcium 7.6 MG/DL (8.5-10.1); Osmolality,Calculated 295.5 MOS/KG (273-304); Potassium 4.3 MMOL/L (3.5-5.1); Total Protein 6.2 G/DL (6.4-8.3)
[2017-12-03] MEDS: NOREPINEPHRINE 16 MG in SODIUM CHLORIDE 0.9% 234 ML IV SCH (06:19)
[2017-12-03] MEDS: INSULIN REGULAR 100 UNIT/ML SUBCUT SCH ×3 (06:31→17:35)
[2017-12-03] MEDS ORDERED: CALCIUM GLUCONATE 1,000 MG in SODIUM CHLORIDE 0.9% 100 ML IV ONE (06:53)
[2017-12-03] MEDS ORDERED: CALCIUM GLUCONATE 1,000 MG/10 ML VIAL IV ONE (07:00)
[2017-12-03 07:41] LABS: Calcium 7.5 MG/DL (8.5-10.1); Osmolality,Calculated 299.5 MOS/KG (273-304)
[2017-12-03 07:43] LABS: Lactic Acid 9.1 MMOL/L (0.4-2.0)
[2017-12-03] MEDS ORDERED: SODIUM CHLORIDE 23.4% CONC INJ 38.5 MEQ, SODIUM BICARB INJ 100 MEQ in STERILE WATER INJ... IV SCH (08:00)
[2017-12-03] MEDS ORDERED: PENICILLIN G POTASSIUM INJ 2,000,000 UNIT in SODIUM CHLORIDE 0.9% 100 ML IV SCH (08:00)
[2017-12-03] MEDS ORDERED: INSULIN REGULAR 100 UNIT/ML IV ONE (08:57)
[2017-12-03] MEDS: PANTOPRAZOLE 40 MG VIAL IV SCH (09:09)
[2017-12-03] MEDS ORDERED: fentaNYL 100 MCG/2 ML VIAL ONE (10:45)
[2017-12-03] MEDS ORDERED: MIDAZOLAM 10 MG/2 ML VIAL ONE (10:45)
[2017-12-03] MEDS ORDERED: ROCURONIUM 100 MG/10 ML VIAL IV ONE (10:45)
[2017-12-03] MEDS ORDERED: SODIUM CHLORIDE 0.9% 1,000 ML IV ONE (10:45)
[2017-12-03] MEDS ORDERED: SEVOFLURANE 1 UNIT/15 MINUTE INH ONE (10:45)
[2017-12-03] MEDS: PIPERACILLIN/TAZOBACTAM 3,375 MG in SODIUM CHLORIDE 0.9% 100 ML IV SCH (12:52)
[2017-12-03] MEDS ORDERED: GENTAMICIN INJ 80 MG in PREMIX 1 EACH IV ONE (21:00)
[2017-12-03] MEDS: HYDROmorphone 2 MG/1 ML VIAL IV PRN (22:15)
[2017-12-04] MEDS: PIPERACILLIN/TAZOBACTAM 3,375 MG in SODIUM CHLORIDE 0.9% 100 ML IV SCH ×2 (00:27→12:18)
[2017-12-04] MEDS: INSULIN REGULAR 100 UNIT/ML SUBCUT SCH ×4 (00:28→18:14)
[2017-12-04 04:20] LABS: ABG Base Excess 0.1 MMOL/L (-2.5-2.5); ABG HCO3 24.6 MMOL/L (20-26); ABG Oxygen Saturation 99.8 % (95-100); ABG PCO2 32.9 MM HG (35-48); ABG PH 7.463 (7.35-7.45)
[2017-12-04] MEDS: HYDROmorphone 2 MG/1 ML VIAL IV PRN ×2 (04:23→06:43)
[2017-12-04 04:32] LABS: Basophils % 0.1 % (0.0-0.8); Hematocrit 22.2 VOL% (35.7-47.0); Lymphocytes # 2.1 10*3/uL (1.4-4.0); Lymphocytes % 7.1 % (21.3-54.2); Mean Corpuscular HGB Conc 33.8 GM/DL (32-36); Mean Corpuscular Hemoglobin 31 PG (27-34); Mean Corpuscular Volume 92.5 FL (87-102); Mean Platelet Volume 10.8 FL (9.6-12.0); Monocytes # 1.7 10*3/uL (0.11-0.8); Monocytes % 5.8 % (1.7-12.7); NRBC # 0.02 10*3/uL; Neutrophils # 25.3 10*3/uL (1.4-7.4); Platelet Count 109 T/CUMM (130-400); Red Cell Distribution Width 15.7 % (9.3-17.3); White Blood Count 29.5 T/CUMM (4-12)
[2017-12-04 04:37] LABS: Hemoglobin 7.5 GM/DL (12.0-16.0)
[2017-12-04] MEDS: PROPOFOL 1,000 MG/100 ML BOTTLE IV SCH (04:50)
[2017-12-04] MEDS: PHENYLEPHRINE DRIP 40 MG/250 ML PREMIX IV SCH (04:50)
[2017-12-04] MEDS: PHENYLEPHRINE INJ 160 MG in SODIUM CHLORIDE 0.9% 234 ML IV SCH (04:50)
[2017-12-04 04:54] LABS: Eosinophils 1 % (0-10); Giant Platelets Few; Hypochromasia 1+; Lymphocytes 6 % (20-55); Microcytosis 1+; Nucleated Red Blood Cells 1 (0-5); Ovalocytes Slight; Platelet Estimate Decreased; Segmented Neutrophils 89 % (50-85); Total Cells Counted 100
[2017-12-04 04:56] LABS: Lactic Acid 2.3 MMOL/L (0.4-2.0)
[2017-12-04 05:06] LABS: Blood Urea Nitrogen 44 MG/DL (7-18); Calcium 7.3 MG/DL (8.5-10.1); Glucose 258 MG/DL (74-106); Osmolality,Calculated 300.3 MOS/KG (273-304); Potassium 3.9 MMOL/L (3.5-5.1); Sodium 141 MMOL/L (136-145)
[2017-12-04] MEDS: CLINDAMYCIN INJ 900 MG in PREMIX 1 EACH IV SCH ×3 (05:15→21:34)
[2017-12-04] MEDS: NOREPINEPHRINE 16 MG in SODIUM CHLORIDE 0.9% 234 ML IV SCH ×3 (05:16→15:57)
[2017-12-04] MEDS: SODIUM HYPOCHLORITE 0.25% IRRIG 473 ML BOTTLE TOP SCH ×2 (06:43→10:18)
[2017-12-04] MEDS ORDERED: SODIUM CHLORIDE 0.9% 1,000 ML IV PRN (07:49)
[2017-12-04 08:20] LABS: ABG Base Excess -1.3 MMOL/L (-2.5-2.5); ABG HCO3 23.3 MMOL/L (20-26); ABG Oxygen Saturation 98.2 % (95-100); ABG PCO2 47.2 MM HG (35-48); ABG TCO2 22.9 MMOL/L (23-27)
[2017-12-04] MEDS: PANTOPRAZOLE 40 MG VIAL IV SCH (08:55)
[2017-12-04] MEDS ORDERED: ALBUMIN 25% 25 GM in PREMIX 1 EACH IV ONE ×2 (13:47→14:15)
[2017-12-04] MEDS ORDERED: GENTAMICIN INJ 80 MG in PREMIX 1 EACH IV ONE (17:00)
[2017-12-04] MEDS: INSULIN GLARGINE 100 UNIT/ML SUBCUT SCH (21:34)
[2017-12-05] MEDS: INSULIN REGULAR 100 UNIT/ML SUBCUT SCH ×4 (00:48→17:40)
[2017-12-05] MEDS: PIPERACILLIN/TAZOBACTAM 3,375 MG in SODIUM CHLORIDE 0.9% 100 ML IV SCH ×2 (00:48→14:00)
[2017-12-05] MEDS: PHENYLEPHRINE DRIP 40 MG/250 ML PREMIX IV SCH ×2 (00:48→23:38)
[2017-12-05] MEDS: PROPOFOL 1,000 MG/100 ML BOTTLE IV SCH (00:52)
[2017-12-05 04:44] LABS: Basophils % 0.1 % (0.0-0.8); Hematocrit 25.1 VOL% (35.7-47.0); Hemoglobin 8.4 GM/DL (12.0-16.0); Immature Granulocytes % 1.5 %; Immature Granulocytes Absolute 0.16 #; Lymphocytes # 1.7 10*3/uL (1.4-4.0); Mean Corpuscular HGB Conc 33.5 GM/DL (32-36); Mean Corpuscular Hemoglobin 30 PG (27-34); Mean Corpuscular Volume 88.7 FL (87-102); Mean Platelet Volume 9.9 FL (9.6-12.0); Monocytes # 0.8 10*3/uL (0.11-0.8); Monocytes % 7.2 % (1.7-12.7); NRBC # 0.02 10*3/uL; Neutrophils # 8.1 10*3/uL (1.4-7.4); Neutrophils % 75.2 % (38.7-73.9); Red Blood Count 2.83 MC/CUMM (3.8-5.5); Red Cell Distribution Width 17.6 % (9.3-17.3); White Blood Count 10.7 T/CUMM (4-12)
[2017-12-05 04:47] LABS: Platelet Count 42 T/CUMM (130-400)
[2017-12-05 05:02] LABS: Calcium 7.7 MG/DL (8.5-10.1); Lactic Acid 0.9 MMOL/L (0.4-2.0)
[2017-12-05 05:03] LABS: Osmolality,Calculated 291.4 MOS/KG (273-304); Potassium 3.1 MMOL/L (3.5-5.1); Prealbumin 6.8 MG/DL (20-40)
[2017-12-05] MEDS: CLINDAMYCIN INJ 900 MG in PREMIX 1 EACH IV SCH ×3 (05:21→20:10)
[2017-12-05] MEDS: PHENYLEPHRINE INJ 160 MG in SODIUM CHLORIDE 0.9% 234 ML IV SCH (06:10)
[2017-12-05 06:12] LABS: ABG Base Excess -0.9 MMOL/L (-2.5-2.5); ABG HCO3 23.7 MMOL/L (20-26); ABG Oxygen Saturation 99.8 % (95-100); ABG PCO2 38.1 MM HG (35-48); ABG PH 7.401 (7.35-7.45); ABG TCO2 21.9 MMOL/L (23-27)
[2017-12-05] MEDS: NOREPINEPHRINE 16 MG in SODIUM CHLORIDE 0.9% 234 ML IV SCH (07:00)
[2017-12-05] MEDS: HYDROmorphone 2 MG/1 ML VIAL IV PRN ×2 (07:15→21:45)
[2017-12-05] MEDS: SODIUM HYPOCHLORITE 0.25% IRRIG 473 ML BOTTLE TOP SCH (07:30)
[2017-12-05] MEDS: PANTOPRAZOLE 40 MG VIAL IV SCH (09:10)
[2017-12-05] MEDS: POTASSIUM CHLORIDE 20 MEQ/15 ML UDCUP PER TUBE PRN ×3 (09:10→13:00)
[2017-12-05 09:32] LABS: ABG Base Excess -1.4 MMOL/L (-2.5-2.5); ABG HCO3 23.3 MMOL/L (20-26); ABG Oxygen Saturation 98.5 % (95-100); ABG PCO2 40.3 MM HG (35-48); ABG PH 7.376 (7.35-7.45)
[2017-12-05] MEDS: INSULIN GLARGINE 100 UNIT/ML SUBCUT SCH (21:15)
[2017-12-06] MEDS: INSULIN REGULAR 100 UNIT/ML SUBCUT SCH ×6 (00:37→20:56)
[2017-12-06] MEDS: PIPERACILLIN/TAZOBACTAM 3,375 MG in SODIUM CHLORIDE 0.9% 100 ML IV SCH ×2 (00:37→13:00)
[2017-12-06] MEDS: PHENYLEPHRINE INJ 160 MG in SODIUM CHLORIDE 0.9% 234 ML IV SCH (02:54)
[2017-12-06] MEDS: CLINDAMYCIN INJ 900 MG in PREMIX 1 EACH IV SCH ×2 (03:52→13:00)
[2017-12-06 04:42] LABS: Basophils % 0.1 % (0.0-0.8); Eosinophils # 0.1 10*3/uL (0.0-0.87); Eosinophils % 0.9 % (0.00-10.9); Hematocrit 26.5 VOL% (35.7-47.0); Hemoglobin 8.8 GM/DL (12.0-16.0); Immature Granulocytes % 3.7 %; Immature Granulocytes Absolute 0.42 #; Lymphocytes # 1.9 10*3/uL (1.4-4.0); Lymphocytes % 16.7 % (21.3-54.2); Mean Corpuscular HGB Conc 33.2 GM/DL (32-36); Mean Corpuscular Hemoglobin 30 PG (27-34); Mean Corpuscular Volume 90.8 FL (87-102); Mean Platelet Volume 10.2 FL (9.6-12.0); Monocytes # 0.9 10*3/uL (0.11-0.8); Monocytes % 7.6 % (1.7-12.7); NRBC # 0.02 10*3/uL; Neutrophils # 8.1 10*3/uL (1.4-7.4); Platelet Count 45 T/CUMM (130-400); Red Blood Count 2.92 MC/CUMM (3.8-5.5); Red Cell Distribution Width 17.5 % (9.3-17.3); White Blood Count 11.4 T/CUMM (4-12)
[2017-12-06 05:00] LABS: Anisocytosis 1+; Poikilocytosis 1+
[2017-12-06] MEDS: NOREPINEPHRINE 16 MG in SODIUM CHLORIDE 0.9% 234 ML IV SCH (05:02)
[2017-12-06 05:12] LABS: Calcium 7.3 MG/DL (8.5-10.1); Osmolality,Calculated 293.7 MOS/KG (273-304); Potassium 3.9 MMOL/L (3.5-5.1)
[2017-12-06] MEDS: HYDROmorphone 2 MG/1 ML VIAL IV PRN ×3 (06:45→22:18)
[2017-12-06] MEDS: SODIUM HYPOCHLORITE 0.25% IRRIG 473 ML BOTTLE TOP SCH (06:50)
[2017-12-06] MEDS: PANTOPRAZOLE 40 MG VIAL IV SCH (08:30)
[2017-12-06] MEDS: POTASSIUM CHLORIDE 20 MEQ/15 ML UDCUP PER TUBE PRN (09:00)
[2017-12-06] MEDS ORDERED: AMPICILLIN INJ 2,000 MG in SODIUM CHLORIDE 0.9% 100 ML IV PRN (13:18)
[2017-12-06] MEDS: AMPICILLIN/SULBACTAM 1,500 MG in SODIUM CHLORIDE 0.9% 100 ML IV SCH (15:00)
[2017-12-06] MEDS ORDERED: GENTAMICIN INJ 80 MG in PREMIX 1 EACH IV ONE (15:00)
[2017-12-06] MEDS: INSULIN GLARGINE 100 UNIT/ML SUBCUT SCH (20:56)
[2017-12-06] MEDS: PHENYLEPHRINE DRIP 40 MG/250 ML PREMIX IV SCH (22:45)
[2017-12-07] MEDS: AMPICILLIN/SULBACTAM 1,500 MG in SODIUM CHLORIDE 0.9% 100 ML IV SCH ×2 (02:04→14:14)
[2017-12-07] MEDS: PHENYLEPHRINE INJ 160 MG in SODIUM CHLORIDE 0.9% 234 ML IV SCH (02:42)
[2017-12-07 02:48] LABS: Basophils % 0.2 % (0.0-0.8); Eosinophils # 0.2 10*3/uL (0.0-0.87); Eosinophils % 1.5 % (0.00-10.9); Hematocrit 28.5 VOL% (35.7-47.0); Hemoglobin 9.3 GM/DL (12.0-16.0); Immature Granulocytes % 6.1 %; Immature Granulocytes Absolute 0.88 #; Lymphocytes % 13.7 % (21.3-54.2); Mean Corpuscular HGB Conc 32.6 GM/DL (32-36); Mean Corpuscular Hemoglobin 30 PG (27-34); Mean Corpuscular Volume 92.2 FL (87-102); Monocytes # 1.1 10*3/uL (0.11-0.8); Monocytes % 7.8 % (1.7-12.7); NRBC # 0.06 10*3/uL; Neutrophils # 10.3 10*3/uL (1.4-7.4); Neutrophils % 70.7 % (38.7-73.9); Platelet Count 53 T/CUMM (130-400); Red Blood Count 3.09 MC/CUMM (3.8-5.5); Red Cell Distribution Width 17.6 % (9.3-17.3); White Blood Count 14.5 T/CUMM (4-12)
[2017-12-07 03:07] LABS: Band Neutrophils 3 % (0-10); Lymphocytes 16 % (20-55); Nucleated Red Blood Cells 1 (0-5); Segmented Neutrophils 76 % (50-85); Total Cells Counted 100
[2017-12-07 03:09] LABS: Platelet Estimate Decreased
[2017-12-07 03:17] LABS: Calcium 7.3 MG/DL (8.5-10.1); Osmolality,Calculated 288.5 MOS/KG (273-304)
[2017-12-07] MEDS: NOREPINEPHRINE 16 MG in SODIUM CHLORIDE 0.9% 234 ML IV SCH (04:49)
[2017-12-07] MEDS: HYDROmorphone 2 MG/1 ML VIAL IV PRN ×3 (07:15→18:46)
[2017-12-07] MEDS: SODIUM HYPOCHLORITE 0.25% IRRIG 473 ML BOTTLE TOP SCH (07:15)
[2017-12-07] MEDS: INSULIN REGULAR 100 UNIT/ML SUBCUT SCH ×4 (07:54→21:32)
[2017-12-07] MEDS: PANTOPRAZOLE 40 MG VIAL IV SCH (08:20)
[2017-12-07] MEDS ORDERED: ONDANSETRON 4 MG/2 ML VIAL ONE (10:43)
[2017-12-07] MEDS ORDERED: ETOMIDATE 40 MG/20 ML VIAL IV ONE (10:43)
[2017-12-07] MEDS ORDERED: fentaNYL 100 MCG/2 ML VIAL ONE (10:43)
[2017-12-07] MEDS ORDERED: SEVOFLURANE 1 UNIT/15 MINUTE INH ONE (10:43)
[2017-12-07] MEDS ORDERED: MIDAZOLAM 2 MG/2 ML VIAL ONE (10:43)
[2017-12-07] MEDS ORDERED: PHENYLEPHRINE 1 MG/10 ML SYRINGE IV ONE (10:44)
[2017-12-07] MEDS ORDERED: ACETAMINOPHEN 1,000 MG/100 ML VIAL IV ONE (10:44)
[2017-12-07] MEDS: INSULIN GLARGINE 100 UNIT/ML SUBCUT SCH (21:32)
[2017-12-08] MEDS: AMPICILLIN/SULBACTAM 1,500 MG in SODIUM CHLORIDE 0.9% 100 ML IV SCH ×2 (02:54→14:19)
[2017-12-08] MEDS: PHENYLEPHRINE DRIP 40 MG/250 ML PREMIX IV SCH (02:58)
[2017-12-08] MEDS: NOREPINEPHRINE 16 MG in SODIUM CHLORIDE 0.9% 234 ML IV SCH (04:45)
[2017-12-08 05:37] LABS: Basophils % 0.2 % (0.0-0.8); Eosinophils # 0.2 10*3/uL (0.0-0.87); Eosinophils % 1.5 % (0.00-10.9); Hematocrit 26.4 VOL% (35.7-47.0); Hemoglobin 8.5 GM/DL (12.0-16.0); Immature Granulocytes % 5.7 %; Immature Granulocytes Absolute 0.73 #; Lymphocytes # 1.5 10*3/uL (1.4-4.0); Lymphocytes % 12.1 % (21.3-54.2); Mean Corpuscular HGB Conc 32.2 GM/DL (32-36); Mean Corpuscular Hemoglobin 30 PG (27-34); Mean Corpuscular Volume 93.3 FL (87-102); Mean Platelet Volume 10.9 FL (9.6-12.0); Monocytes # 0.8 10*3/uL (0.11-0.8); Monocytes % 6.4 % (1.7-12.7); NRBC # 0.02 10*3/uL; Neutrophils # 9.4 10*3/uL (1.4-7.4); Neutrophils % 74.1 % (38.7-73.9); Platelet Count 44 T/CUMM (130-400); Red Blood Count 2.83 MC/CUMM (3.8-5.5); White Blood Count 12.7 T/CUMM (4-12)
[2017-12-08 06:19] LABS: Band Neutrophils 4 % (0-10); Giant Platelets Few; Hypochromasia 1+; Lymphocytes 11 % (20-55); Ovalocytes Slight; Platelet Estimate Decreased; Segmented Neutrophils 81 % (50-85); Total Cells Counted 100
[2017-12-08 07:49] LABS: Calcium 7.2 MG/DL (8.5-10.1); Osmolality,Calculated 286.8 MOS/KG (273-304); Potassium 4.3 MMOL/L (3.5-5.1)
[2017-12-08] MEDS: INSULIN REGULAR 100 UNIT/ML SUBCUT SCH ×4 (08:00→22:11)
[2017-12-08] MEDS: PANTOPRAZOLE 40 MG VIAL IV SCH (08:01)
[2017-12-08] MEDS: ACETAMINOPHEN 325 MG TABLET PO PRN (08:01)
[2017-12-08] MEDS: SODIUM HYPOCHLORITE 0.25% IRRIG 473 ML BOTTLE TOP SCH (08:01)
[2017-12-08] MEDS: HYDROmorphone 2 MG/1 ML VIAL IV PRN ×2 (10:55→18:46)
[2017-12-08] MEDS ORDERED: AMPICILLIN INJ 2,000 MG in SODIUM CHLORIDE 0.9% 100 ML IV ONE (16:30)
[2017-12-08] MEDS: INSULIN GLARGINE 100 UNIT/ML SUBCUT SCH (22:10)
[2017-12-09] MEDS: PHENYLEPHRINE DRIP 40 MG/250 ML PREMIX IV SCH ×2 (02:15→23:30)
[2017-12-09] MEDS: AMPICILLIN/SULBACTAM 1,500 MG in SODIUM CHLORIDE 0.9% 100 ML IV SCH ×2 (02:22→15:08)
[2017-12-09 04:48] LABS: Basophils % 0.2 % (0.0-0.8); Eosinophils # 0.2 10*3/uL (0.0-0.87); Eosinophils % 1.2 % (0.00-10.9); Hematocrit 25.2 VOL% (35.7-47.0); Hemoglobin 8.1 GM/DL (12.0-16.0); Immature Granulocytes % 4.4 %; Immature Granulocytes Absolute 0.53 #; Lymphocytes # 1.3 10*3/uL (1.4-4.0); Lymphocytes % 10.3 % (21.3-54.2); Mean Corpuscular HGB Conc 32.1 GM/DL (32-36); Mean Corpuscular Hemoglobin 30 PG (27-34); Mean Corpuscular Volume 93.7 FL (87-102); Mean Platelet Volume 11.1 FL (9.6-12.0); Monocytes # 0.8 10*3/uL (0.11-0.8); Monocytes % 6.9 % (1.7-12.7); Neutrophils # 9.4 10*3/uL (1.4-7.4); Platelet Count 46 T/CUMM (130-400); Red Blood Count 2.69 MC/CUMM (3.8-5.5); Red Cell Distribution Width 17.2 % (9.3-17.3); White Blood Count 12.2 T/CUMM (4-12)
[2017-12-09 05:02] LABS: Calcium 7.8 MG/DL (8.5-10.1); Osmolality,Calculated 274.1 MOS/KG (273-304); Potassium 3.8 MMOL/L (3.5-5.1)
[2017-12-09 05:42] LABS: Hypochromasia 1+; Ovalocytes Slight; Platelet Estimate Decreased
[2017-12-09] MEDS: INSULIN REGULAR 100 UNIT/ML SUBCUT SCH ×4 (08:02→20:34)
[2017-12-09] MEDS: ACETAMINOPHEN 325 MG TABLET PO PRN (08:11)
[2017-12-09] MEDS: PANTOPRAZOLE 40 MG VIAL IV SCH (08:11)
[2017-12-09] MEDS: SODIUM HYPOCHLORITE 0.25% IRRIG 473 ML BOTTLE TOP SCH (08:24)
[2017-12-09] MEDS ORDERED: ZINC OXIDE PASTE 113 GM TUBE TOP PRN (10:39)
[2017-12-09] MEDS: HYDROmorphone 2 MG/1 ML VIAL IV PRN (11:13)
[2017-12-09] MEDS: LACTOBACILLUS ACIDOPHILUS/BULGARICUS CAPLET PO SCH (15:08)
[2017-12-09] MEDS: NOREPINEPHRINE 16 MG in SODIUM CHLORIDE 0.9% 234 ML IV SCH (19:29)
[2017-12-09] MEDS: INSULIN GLARGINE 100 UNIT/ML SUBCUT SCH (20:35)
[2017-12-10] MEDS: AMPICILLIN/SULBACTAM 1,500 MG in SODIUM CHLORIDE 0.9% 100 ML IV SCH (03:29)
[2017-12-10 04:51] LABS: Basophils % 0.2 % (0.0-0.8); Eosinophils # 0.1 10*3/uL (0.0-0.87); Eosinophils % 1.1 % (0.00-10.9); Hematocrit 22.6 VOL% (35.7-47.0); Hemoglobin 7.6 GM/DL (12.0-16.0); Lymphocytes # 0.8 10*3/uL (1.4-4.0); Lymphocytes % 8.2 % (21.3-54.2); Mean Corpuscular HGB Conc 33.6 GM/DL (32-36); Mean Corpuscular Hemoglobin 31 PG (27-34); Mean Corpuscular Volume 92.2 FL (87-102); Mean Platelet Volume 10.6 FL (9.6-12.0); Monocytes # 0.6 10*3/uL (0.11-0.8); Monocytes % 5.5 % (1.7-12.7); Neutrophils # 8.2 10*3/uL (1.4-7.4); Platelet Count 42 T/CUMM (130-400); Red Blood Count 2.45 MC/CUMM (3.8-5.5); Red Cell Distribution Width 17.3 % (9.3-17.3); White Blood Count 9.9 T/CUMM (4-12)
[2017-12-10 04:54] LABS: Calcium 7.5 MG/DL (8.5-10.1); Osmolality,Calculated 286.1 MOS/KG (273-304); Potassium 4.1 MMOL/L (3.5-5.1)
[2017-12-10 05:17] LABS: Microcytosis 1+; Polychromasia Slight
[2017-12-10 05:18] LABS: Anisocytosis 1+
[2017-12-10] MEDS: NOREPINEPHRINE 16 MG in SODIUM CHLORIDE 0.9% 234 ML IV SCH (05:19)
[2017-12-10] MEDS ORDERED: BUPIVACAINE MPF 0.25% /EPI 30 ML VIAL ONE (07:43)
[2017-12-10] MEDS ORDERED: BENZOIN COMPOUND TINCTURE 58 ML BOTTLE TOP ONE (07:43)
[2017-12-10] MEDS ORDERED: LIDOCAINE 1%/EPI INJ 20 ML VIAL ONE (07:43)
[2017-12-10] MEDS: PANTOPRAZOLE 40 MG VIAL IV SCH (08:26)
[2017-12-10] MEDS: INSULIN REGULAR 100 UNIT/ML SUBCUT SCH ×4 (08:28→22:59)
[2017-12-10] MEDS: SODIUM HYPOCHLORITE 0.25% IRRIG 473 ML BOTTLE TOP SCH (08:29)
[2017-12-10] MEDS ORDERED: FLUCONAZOLE 200 MG TABLET PO ONE (09:29)
[2017-12-10] MEDS ORDERED: fentaNYL 100 MCG/2 ML VIAL ONE (09:38)
[2017-12-10] MEDS ORDERED: PROPOFOL 200 MG/20 ML VIAL IV ONE (09:38)
[2017-12-10] MEDS ORDERED: ONDANSETRON 4 MG/2 ML VIAL ONE (09:39)
[2017-12-10] MEDS ORDERED: MIDAZOLAM 2 MG/2 ML VIAL ONE (09:39)
[2017-12-10] MEDS ORDERED: PHENYLEPHRINE 1 MG/10 ML SYRINGE IV ONE (09:39)
[2017-12-10] MEDS ORDERED: GLYCOPYRROLATE 0.4 MG/2 ML VIAL ONE (09:39)
[2017-12-10] MEDS ORDERED: ePHEDrine 50 MG/ML AMP ONE (09:39)
[2017-12-10] MEDS ORDERED: SEVOFLURANE 1 UNIT/15 MINUTE INH ONE (09:40)
[2017-12-10] MEDS: HYDROmorphone 2 MG/1 ML VIAL IV PRN ×2 (09:58→22:55)
[2017-12-10] MEDS: LACTOBACILLUS ACIDOPHILUS/BULGARICUS CAPLET PO SCH (10:20)
[2017-12-10] MEDS: AMOXICILLIN/CLAV 500 MG TABLET PO SCH (13:50)
[2017-12-10] MEDS ORDERED: AMPICILLIN/SULBACTAM 1,500 MG in SODIUM CHLORIDE 0.9% 50 ML IV SCH (14:00)
[2017-12-10] MEDS: INSULIN GLARGINE 100 UNIT/ML SUBCUT SCH (22:59)
[2017-12-11] MEDS: MORPHINE 2 MG/1 ML SYRINGE IV PRN ×2 (05:06→11:57)
[2017-12-11] MEDS ORDERED: SODIUM CHLORIDE 0.9% 1,000 ML IV PRN (07:13)
[2017-12-11] MEDS: INSULIN REGULAR 100 UNIT/ML SUBCUT SCH ×4 (07:53→21:29)
[2017-12-11] MEDS: AMOXICILLIN/CLAV 500 MG TABLET PO SCH (08:20)
[2017-12-11] MEDS: PANTOPRAZOLE 40 MG VIAL IV SCH (08:20)
[2017-12-11] MEDS: LACTOBACILLUS ACIDOPHILUS/BULGARICUS CAPLET PO SCH (08:20)
[2017-12-11] MEDS: SODIUM HYPOCHLORITE 0.25% IRRIG 473 ML BOTTLE TOP SCH (11:56)
[2017-12-11] MEDS ORDERED: SEVELAMER CARBONATE 800 MG TABLET PO SCH (15:00)
[2017-12-11] MEDS: SEVELAMER CARBONATE 800 MG TABLET PO SCH (17:23)
[2017-12-11] MEDS: INSULIN GLARGINE 100 UNIT/ML SUBCUT SCH (21:27)
[2017-12-12] MEDS ORDERED: MORPHINE 10 MG/1 ML VIAL IV PRN (07:00)
[2017-12-12] MEDS: INSULIN REGULAR 100 UNIT/ML SUBCUT SCH ×2 (08:20→11:36)
[2017-12-12] MEDS: PANTOPRAZOLE 40 MG VIAL IV SCH (08:24)
[2017-12-12] MEDS: AMOXICILLIN/CLAV 500 MG TABLET PO SCH (08:24)
[2017-12-12] MEDS: LACTOBACILLUS ACIDOPHILUS/BULGARICUS CAPLET PO SCH (08:24)
[2017-12-12] MEDS: SEVELAMER CARBONATE 800 MG TABLET PO SCH ×2 (08:24→12:08)
[2017-12-12] MEDS: SODIUM HYPOCHLORITE 0.25% IRRIG 473 ML BOTTLE TOP SCH (08:29)
[2017-12-12] MEDS ORDERED: MULTIVITAMIN (BEROCCA) TABLET PO SCH (09:00)
[2017-12-12 12:22] VITALS: BP 87/46
== END 2017-12-12 16:45 | DRG 853 ==
LOC: EDBD → EDUNIT# → N.ED 18:37 → N.ICU 21:25 → N.EDINP 21:48 → SUATTDRO 21:48 → N.ICU 22:26 → N.2E 12-11 20:07
PROVIDERS: ADMIT Internal Medicine; ATTEND Internal Medicine

== ENCOUNTER 2018-05-12 15:31 | Inpatient (IN) ==
[2018-05-12] MEDS ORDERED: ALBUTEROL 2.5 MG/3 ML NEB RESP TX PRN (17:20)
[2018-05-12] MEDS ORDERED: ONDANSETRON 4 MG/2 ML VIAL IV PRN (17:20)
[2018-05-12 18:18] LABS: Basophils % 0.5 % (0.0-0.8); Eosinophils % 1.1 % (0.00-10.9); Hematocrit 31.2 VOL% (35.7-47.0); Hemoglobin 9.6 GM/DL (12.0-16.0); Immature Granulocytes % 0.8 %; Immature Granulocytes Absolute 0.03 #; Lymphocytes # 0.9 10*3/uL (1.4-4.0); Lymphocytes % 25.5 % (21.3-54.2); Mean Corpuscular HGB Conc 30.8 GM/DL (32-36); Mean Corpuscular Hemoglobin 30 PG (27-34); Mean Corpuscular Volume 96.6 FL (87-102); Mean Platelet Volume 10.5 FL (9.6-12.0); Monocytes # 0.3 10*3/uL (0.11-0.8); Monocytes % 8.1 % (1.7-12.7); Neutrophils # 2.4 10*3/uL (1.4-7.4); Red Blood Count 3.23 MC/CUMM (3.8-5.5); Red Cell Distribution Width 17.8 % (9.3-17.3); White Blood Count 3.7 T/CUMM (4-12)
[2018-05-12 18:31] LABS: Platelet Count 42 T/CUMM (130-400)
[2018-05-12 18:32] LABS: INR 1.1; PT Patient Result 11.9 SECS
[2018-05-12 18:39] LABS: Albumin 1.9 G/DL (3.4-5.0); Bilirubin,Total 0.8 MG/DL (0.2-1.0); Calcium 8.1 MG/DL (8.5-10.1); Osmolality,Calculated 286.5 MOS/KG (273-304); Potassium 3.4 MMOL/L (3.5-5.1); Total Protein 6.5 G/DL (6.4-8.3)
[2018-05-12 18:40] LABS: CKMB % 3.5 %
[2018-05-12 18:56] LABS: Hypochromasia 1+; Macrocytosis 1+; Platelet Estimate Decreased
[2018-05-12] MEDS: INSULIN ASPART PROTAMINE/ASPART 70/30 100 UNIT/ML SUBCUT SCH (21:40)
[2018-05-12 23:18] LABS: CKMB % 3.1 %
[2018-05-13] MEDS: ACETAMINOPHEN 325 MG TABLET PO PRN (02:06)
[2018-05-13 04:57] LABS: Basophils % 0.3 % (0.0-0.8); Eosinophils # 0.1 10*3/uL (0.0-0.87); Eosinophils % 2.7 % (0.00-10.9); Hematocrit 28.7 VOL% (35.7-47.0); Hemoglobin 9.2 GM/DL (12.0-16.0); Immature Granulocytes % 0.6 %; Immature Granulocytes Absolute 0.02 #; Lymphocytes # 0.9 10*3/uL (1.4-4.0); Lymphocytes % 26.7 % (21.3-54.2); Mean Corpuscular HGB Conc 32.1 GM/DL (32-36); Mean Corpuscular Hemoglobin 30 PG (27-34); Mean Corpuscular Volume 94.1 FL (87-102); Mean Platelet Volume 10.6 FL (9.6-12.0); Monocytes # 0.3 10*3/uL (0.11-0.8); Monocytes % 8.2 % (1.7-12.7); Neutrophils % 61.5 % (38.7-73.9); Platelet Count 42 T/CUMM (130-400); Red Blood Count 3.05 MC/CUMM (3.8-5.5); Red Cell Distribution Width 17.7 % (9.3-17.3); White Blood Count 3.3 T/CUMM (4-12)
[2018-05-13 05:14] LABS: CKMB % 3.3 %
[2018-05-13 05:18] LABS: Osmolality,Calculated 290.1 MOS/KG (273-304); Potassium 3.2 MMOL/L (3.5-5.1); Risk Ratio 3.18; Thyroid Stimulating Hormone 1.4 uIU/ml (0.358-3.74); VLDL CHOLESTEROL 18.8 MG/DL
[2018-05-13 05:28] LABS: Band Neutrophils 1 % (0-10); Eosinophils 1 % (0-10); Lymphocytes 24 % (20-55); Myelocytes 2 %; Nucleated Red Blood Cells 1 (0-5); Segmented Neutrophils 68 % (50-85); Total Cells Counted 100
[2018-05-13 05:29] LABS: Anisocytosis 1+; Hypochromasia 1+; Platelet Estimate Decreased; Tear Drop Cells Few
[2018-05-13] MEDS: INSULIN ASPART PROTAMINE/ASPART 70/30 100 UNIT/ML SUBCUT SCH ×4 (07:30→20:35)
[2018-05-13] MEDS: PANTOPRAZOLE 40 MG TABLET PO SCH (08:25)
[2018-05-14] MEDS: ACETAMINOPHEN 325 MG TABLET PO PRN (00:20)
[2018-05-14 04:54] LABS: Basophils % 0.2 % (0.0-0.8); Eosinophils # 0.1 10*3/uL (0.0-0.87); Eosinophils % 2.8 % (0.00-10.9); Hematocrit 28.5 VOL% (35.7-47.0); Hemoglobin 8.6 GM/DL (12.0-16.0); Immature Granulocytes % 0.7 %; Immature Granulocytes Absolute 0.03 #; Lymphocytes # 1.1 10*3/uL (1.4-4.0); Lymphocytes % 26.3 % (21.3-54.2); Mean Corpuscular HGB Conc 30.2 GM/DL (32-36); Mean Corpuscular Hemoglobin 29 PG (27-34); Mean Corpuscular Volume 97.3 FL (87-102); Mean Platelet Volume 10.7 FL (9.6-12.0); Monocytes # 0.4 10*3/uL (0.11-0.8); Monocytes % 8.4 % (1.7-12.7); Neutrophils # 2.6 10*3/uL (1.4-7.4); Neutrophils % 61.6 % (38.7-73.9); Red Blood Count 2.93 MC/CUMM (3.8-5.5); Red Cell Distribution Width 17.7 % (9.3-17.3); White Blood Count 4.3 T/CUMM (4-12)
[2018-05-14 04:56] LABS: Platelet Count 35 T/CUMM (130-400)
[2018-05-14 05:21] LABS: Band Neutrophils 3 % (0-10); Eosinophils 2 % (0-10); Lymphocytes 21 % (20-55); Macrocytosis 2+; Platelet Estimate Decreased; Segmented Neutrophils 70 % (50-85); Total Cells Counted 100
[2018-05-14 05:25] LABS: Calcium 7.7 MG/DL (8.5-10.1); Osmolality,Calculated 281.5 MOS/KG (273-304); Potassium 3.5 MMOL/L (3.5-5.1)
[2018-05-14] MEDS: INSULIN ASPART PROTAMINE/ASPART 70/30 100 UNIT/ML SUBCUT SCH ×4 (08:00→20:41)
[2018-05-14 12:04] LABS: INR 1.1; Partial Thromboplastin Time 31.3 SECS (0-40)
[2018-05-14] MEDS: PANTOPRAZOLE 40 MG TABLET PO SCH (16:21)
[2018-05-15] MEDS: INSULIN ASPART PROTAMINE/ASPART 70/30 100 UNIT/ML SUBCUT SCH ×4 (08:33→22:13)
[2018-05-16 03:34] LABS: Eosinophils # 0.1 10*3/uL (0.0-0.87); Eosinophils % 2.3 % (0.00-10.9); Hematocrit 30.7 VOL% (35.7-47.0); Hemoglobin 9.7 GM/DL (12.0-16.0); Immature Granulocytes % 0.5 %; Immature Granulocytes Absolute 0.02 #; Lymphocytes # 1.3 10*3/uL (1.4-4.0); Lymphocytes % 33.3 % (21.3-54.2); Mean Corpuscular HGB Conc 31.6 GM/DL (32-36); Mean Corpuscular Hemoglobin 30 PG (27-34); Mean Corpuscular Volume 94.5 FL (87-102); Mean Platelet Volume 10.9 FL (9.6-12.0); Monocytes # 0.3 10*3/uL (0.11-0.8); Monocytes % 8.1 % (1.7-12.7); Neutrophils # 2.2 10*3/uL (1.4-7.4); Neutrophils % 55.8 % (38.7-73.9); Platelet Count 41 T/CUMM (130-400); Red Blood Count 3.25 MC/CUMM (3.8-5.5); Red Cell Distribution Width 18.4 % (9.3-17.3)
[2018-05-16 04:32] LABS: Band Neutrophils 1 % (0-10); Eosinophils 4 % (0-10); Lymphocytes 33 % (20-55); Segmented Neutrophils 61 % (50-85); Total Cells Counted 100
[2018-05-16 04:33] LABS: Macrocytosis 2+; Platelet Estimate Decreased
[2018-05-16] MEDS: INSULIN ASPART PROTAMINE/ASPART 70/30 100 UNIT/ML SUBCUT SCH ×4 (08:40→22:03)
[2018-05-17] MEDS: INSULIN ASPART PROTAMINE/ASPART 70/30 100 UNIT/ML SUBCUT SCH ×4 (07:51→21:04)
[2018-05-17 08:31] LABS: Eosinophils # 0.1 10*3/uL (0.0-0.87); Eosinophils % 2.5 % (0.00-10.9); Hematocrit 29.5 VOL% (35.7-47.0); Hemoglobin 9.3 GM/DL (12.0-16.0); Immature Granulocytes % 0.6 %; Immature Granulocytes Absolute 0.02 #; Lymphocytes % 26.6 % (21.3-54.2); Mean Corpuscular HGB Conc 31.5 GM/DL (32-36); Mean Corpuscular Hemoglobin 30 PG (27-34); Mean Corpuscular Volume 96.1 FL (87-102); Mean Platelet Volume 10.3 FL (9.6-12.0); Monocytes # 0.3 10*3/uL (0.11-0.8); Monocytes % 7.3 % (1.7-12.7); Neutrophils # 2.3 10*3/uL (1.4-7.4); Red Blood Count 3.07 MC/CUMM (3.8-5.5); Red Cell Distribution Width 18.1 % (9.3-17.3); White Blood Count 3.6 T/CUMM (4-12)
[2018-05-17 08:33] LABS: Platelet Count 44 T/CUMM (130-400)
[2018-05-17 08:49] LABS: Hypochromasia 1+; Macrocytosis Slight; Platelet Estimate Decreased; Polychromasia Slight
[2018-05-17 08:51] LABS: Albumin 2.5 G/DL (3.4-5.0); Bilirubin,Direct 0.43 MG/DL (0.0-0.20); Bilirubin,Indirect 0.3 MG/DL (0.0-1.0); Bilirubin,Total 0.7 MG/DL (0.2-1.0); Total Protein 6.4 G/DL (6.4-8.3)
[2018-05-17 16:30] LABS: Lymphocytes,Pleural Fluid 60 %; Monocytes,Pleural Fluid 35 %; Neutrophils,Pleural Fluid 5 %; RBC,Pleural Fluid 66 T/CUMM
[2018-05-18 07:51] VITALS: BP 98/54
[2018-05-18] MEDS: INSULIN ASPART PROTAMINE/ASPART 70/30 100 UNIT/ML SUBCUT SCH ×2 (09:43→12:55)
== END 2018-05-18 13:20 | disposition home or self-care (01) | DRG 432 ==
LOC: N.ICU 17:06 → SUATTDRO 17:06 → N.TELES 05-13 15:08
PROVIDERS: ADMIT Internal Medicine; ATTEND Internal Medicine

== ENCOUNTER 2018-06-16 15:16 | Inpatient (IN) ==
[2018-06-16] MEDS ORDERED: HYDROCORTISONE 2.5% RECTAL CREAM 30 GM TUBE TOP PRN ×2 (18:02→23:38)
[2018-06-16] MEDS ORDERED: GLUCAGON 1 MG VIAL IM PRN ×2 (19:58)
[2018-06-16] MEDS ORDERED: DEXTROSE 50% 25 GM/50 ML VIAL IV PRN ×2 (19:58)
[2018-06-16] MEDS ORDERED: ONDANSETRON 4 MG/2 ML VIAL IV PRN (19:58)
[2018-06-16 20:36] LABS: Basophils % 0.2 % (0.0-0.8); Eosinophils # 0.1 10*3/uL (0.0-0.87); Eosinophils % 0.7 % (0.00-10.9); Hematocrit 33.6 VOL% (35.7-47.0); Hemoglobin 10.5 GM/DL (12.0-16.0); Immature Granulocytes % 0.3 %; Immature Granulocytes Absolute 0.03 #; Lymphocytes # 1.1 10*3/uL (1.4-4.0); Lymphocytes % 9.6 % (21.3-54.2); Mean Corpuscular HGB Conc 31.3 GM/DL (32-36); Mean Corpuscular Hemoglobin 30 PG (27-34); Mean Corpuscular Volume 94.9 FL (87-102); Mean Platelet Volume 10.4 FL (9.6-12.0); Monocytes # 0.6 10*3/uL (0.11-0.8); Monocytes % 4.9 % (1.7-12.7); Neutrophils # 9.6 10*3/uL (1.4-7.4); Neutrophils % 84.3 % (38.7-73.9); Red Blood Count 3.54 MC/CUMM (3.8-5.5); Red Cell Distribution Width 17.8 % (9.3-17.3); White Blood Count 11.4 T/CUMM (4-12)
[2018-06-16 20:39] LABS: Platelet Count 44 T/CUMM (130-400)
[2018-06-16 20:46] LABS: INR 1.2; PT Patient Result 12.2 SECS
[2018-06-16 21:07] LABS: Lactic Acid 2.9 MMOL/L (0.4-2.0)
[2018-06-16 21:08] LABS: Alanine Aminotransferase 24 U/L (13-56); Albumin 2.2 G/DL (3.4-5.0); Alkaline Phosphatase 185 U/L (45-117); Aspartate Amino Transferase 25 U/L (0-37); Blood Urea Nitrogen 46 MG/DL (7-18); Calcium 7.9 MG/DL (8.5-10.1); Glucose 310 MG/DL (74-106); Osmolality,Calculated 289.4 MOS/KG (273-304); Potassium 3.7 MMOL/L (3.5-5.1); Sodium 133 MMOL/L (136-145); Troponin I < 0.015 NG/ML (0.00-0.045)
[2018-06-16] MEDS: FLUTICASONE 50 MCG NASAL SPRAY 16 GM BOTTLE BOTH NARES SCH (21:31)
[2018-06-16] MEDS: PANTOPRAZOLE 40 MG TABLET PO SCH (21:31)
[2018-06-16] MEDS: LOPERAMIDE 2 MG CAPSULE PO SCH (21:31)
[2018-06-16] MEDS: PIPERACILLIN/TAZOBACTAM 3,375 MG in SODIUM CHLORIDE 0.9% 100 ML IV SCH (21:31)
[2018-06-16] MEDS: SODIUM CHLORIDE 0.9% 1,000 ML IV SCH (21:32)
[2018-06-16] MEDS: MORPHINE 4 MG/1 ML VIAL IV PRN (21:37)
[2018-06-16 22:05] LABS: Hypochromasia Slight; Ovalocytes 2+; Platelet Estimate Decreased
[2018-06-17] MEDS: INSULIN REGULAR 100 UNIT/ML SUBCUT SCH ×4 (00:30→17:48)
[2018-06-17] MEDS: MORPHINE 4 MG/1 ML VIAL IV PRN ×3 (01:35→16:02)
[2018-06-17 03:30] LABS: Eosinophils % 1.3 % (0.00-10.9); Hematocrit 28.7 VOL% (35.7-47.0); Hemoglobin 9.1 GM/DL (12.0-16.0); Lymphocytes % 11.7 % (21.3-54.2); Mean Corpuscular HGB Conc 31.7 GM/DL (32-36); Mean Corpuscular Hemoglobin 30 PG (27-34); Mean Corpuscular Volume 93.2 FL (87-102); Mean Platelet Volume 10.6 FL (9.6-12.0); Monocytes % 6.7 % (1.7-12.7); Neutrophils % 79.4 % (38.7-73.9); Red Blood Count 3.08 MC/CUMM (3.8-5.5); Red Cell Distribution Width 17.9 % (9.3-17.3); White Blood Count 8.8 T/CUMM (4-12)
[2018-06-17 03:31] LABS: Basophils % 0.2 % (0.0-0.8); Eosinophils # 0.1 10*3/uL (0.0-0.87); Immature Granulocytes % 0.7 %; Immature Granulocytes Absolute 0.06 #; Monocytes # 0.6 10*3/uL (0.11-0.8)
[2018-06-17 03:33] LABS: Platelet Count 46 T/CUMM (130-400)
[2018-06-17 03:45] LABS: Lactic Acid 1.5 MMOL/L (0.4-2.0)
[2018-06-17 03:48] LABS: Albumin 1.9 G/DL (3.4-5.0); Bilirubin,Total 1.7 MG/DL (0.2-1.0); Calcium 7.8 MG/DL (8.5-10.1); Osmolality,Calculated 287.2 MOS/KG (273-304); Potassium 3.8 MMOL/L (3.5-5.1); Risk Ratio 7.25; VLDL CHOLESTEROL 27.8 MG/DL
[2018-06-17 04:28] LABS: Anisocytosis 1+; Hypochromasia 1+; Microcytosis 1+; Ovalocytes Slight; Platelet Estimate Decreased
[2018-06-17] MEDS: LOPERAMIDE 2 MG CAPSULE PO SCH ×4 (08:17→20:46)
[2018-06-17] MEDS: FLUTICASONE 50 MCG NASAL SPRAY 16 GM BOTTLE BOTH NARES SCH ×2 (08:17→20:50)
[2018-06-17] MEDS: PANTOPRAZOLE 40 MG TABLET PO SCH ×2 (08:17→20:46)
[2018-06-17] MEDS: METOCLOPRAMIDE 5 MG TABLET PO SCH ×3 (08:17→16:03)
[2018-06-17] MEDS: ASCORBIC ACID 500 MG TABLET PO SCH (08:17)
[2018-06-17] MEDS: MULTIVITAMIN (BEROCCA) TABLET PO SCH (08:17)
[2018-06-17] MEDS: SEVELAMER CARBONATE 800 MG TABLET PO SCH ×3 (08:17→16:03)
[2018-06-17] MEDS: CETIRIZINE 10 MG TABLET PO SCH (08:17)
[2018-06-17] MEDS: PIPERACILLIN/TAZOBACTAM 3,375 MG in SODIUM CHLORIDE 0.9% 100 ML IV SCH ×2 (08:18→20:51)
[2018-06-17] MEDS ORDERED: SODIUM CHLORIDE 0.9% 1,000 ML IV PRN (15:24)
[2018-06-17] MEDS: SODIUM CHLORIDE 0.9% 1,000 ML IV SCH (17:27)
[2018-06-17] MEDS: ACETAMINOPHEN 325 MG TABLET PO PRN (20:56)
[2018-06-18] MEDS: INSULIN REGULAR 100 UNIT/ML SUBCUT SCH ×5 (00:35→23:23)
[2018-06-18 05:55] LABS: Basophils % 0.3 % (0.0-0.8); Eosinophils # 0.2 10*3/uL (0.0-0.87); Eosinophils % 2.7 % (0.00-10.9); Hematocrit 33.7 VOL% (35.7-47.0); Hemoglobin 10.1 GM/DL (12.0-16.0); Immature Granulocytes % 0.5 %; Immature Granulocytes Absolute 0.03 #; Lymphocytes # 1.1 10*3/uL (1.4-4.0); Lymphocytes % 18.6 % (21.3-54.2); Mean Corpuscular Hemoglobin 29 PG (27-34); Mean Corpuscular Volume 96.8 FL (87-102); Mean Platelet Volume 10.8 FL (9.6-12.0); Monocytes # 0.6 10*3/uL (0.11-0.8); Monocytes % 9.5 % (1.7-12.7); Neutrophils % 68.4 % (38.7-73.9); Platelet Count 64 T/CUMM (130-400); Red Blood Count 3.48 MC/CUMM (3.8-5.5); Red Cell Distribution Width 17.9 % (9.3-17.3); White Blood Count 5.9 T/CUMM (4-12)
[2018-06-18 06:20] LABS: Hypochromasia 1+; Microcytosis 1+; Ovalocytes Few; Polychromasia Slight
[2018-06-18 06:22] LABS: Platelet Estimate Decreased
[2018-06-18 06:28] LABS: Osmolality,Calculated 282.7 MOS/KG (273-304); Potassium 3.4 MMOL/L (3.5-5.1)
[2018-06-18] MEDS ORDERED: ALBUMIN 25% 12.5 GM in PREMIX 1 EACH IV PRN (08:34)
[2018-06-18] MEDS ORDERED: ALBUMIN 25% 12.5 GM/50 ML VIAL IV ONE (08:37)
[2018-06-18] MEDS: PIPERACILLIN/TAZOBACTAM 3,375 MG in SODIUM CHLORIDE 0.9% 100 ML IV SCH ×2 (09:34→20:17)
[2018-06-18] MEDS: SEVELAMER CARBONATE 800 MG TABLET PO SCH ×3 (09:35→17:23)
[2018-06-18] MEDS: METOCLOPRAMIDE 5 MG TABLET PO SCH ×3 (09:35→17:23)
[2018-06-18] MEDS: FLUTICASONE 50 MCG NASAL SPRAY 16 GM BOTTLE BOTH NARES SCH ×2 (09:35→20:17)
[2018-06-18] MEDS: LOPERAMIDE 2 MG CAPSULE PO SCH ×4 (09:35→20:16)
[2018-06-18] MEDS: ASCORBIC ACID 500 MG TABLET PO SCH (09:35)
[2018-06-18] MEDS: PANTOPRAZOLE 40 MG TABLET PO SCH ×2 (09:35→20:16)
[2018-06-18] MEDS: CETIRIZINE 10 MG TABLET PO SCH (09:35)
[2018-06-18] MEDS: MULTIVITAMIN (BEROCCA) TABLET PO SCH (09:35)
[2018-06-18 10:52] LABS: Neutrophils,Peritoneal Fluid 33 %; RBC,Peritoneal Fluid 30 T/CUMM
[2018-06-18] MEDS ORDERED: POTASSIUM CHLORIDE 20 MEQ TABLET PO ONE ×2 (12:36)
[2018-06-18] MEDS: MORPHINE 4 MG/1 ML VIAL IV PRN (13:49)
[2018-06-18 14:47] LABS: Hepatitis A Ab IgM Result Negative (Negative); Hepatitis B Core IgM Quant 0.08 Index; Hepatitis B Core IgM Result Negative (Negative); Hepatitis B Surface Ag Quant 0.31 Index; Hepatitis B Surface Ag Result Negative (Negative); Hepatitis C Virus Ab Quant 0.16 Index; Hepatitis C Virus Ab Result Negative (Negative)
[2018-06-18] MEDS: SODIUM CHLORIDE 0.9% 1,000 ML IV SCH (17:49)
[2018-06-18] MEDS: ACETAMINOPHEN 325 MG TABLET PO PRN (20:26)
[2018-06-18] MEDS ORDERED: INSULIN GLARGINE 100 UNIT/ML SUBCUT SCH (21:00)
[2018-06-19] MEDS: SODIUM CHLORIDE 0.9% 1,000 ML IV SCH (01:03)
[2018-06-19] MEDS: INSULIN REGULAR 100 UNIT/ML SUBCUT SCH ×2 (05:47→17:40)
[2018-06-19] MEDS: ACETAMINOPHEN 325 MG TABLET PO PRN (05:47)
[2018-06-19 06:28] LABS: Basophils % 0.2 % (0.0-0.8); Eosinophils # 0.2 10*3/uL (0.0-0.87); Eosinophils % 2.8 % (0.00-10.9); Hematocrit 31.7 VOL% (35.7-47.0); Hemoglobin 9.8 GM/DL (12.0-16.0); Immature Granulocytes % 0.6 %; Immature Granulocytes Absolute 0.03 #; Lymphocytes # 1.2 10*3/uL (1.4-4.0); Lymphocytes % 21.9 % (21.3-54.2); Mean Corpuscular HGB Conc 30.9 GM/DL (32-36); Mean Corpuscular Hemoglobin 29 PG (27-34); Mean Corpuscular Volume 94.9 FL (87-102); Mean Platelet Volume 10.8 FL (9.6-12.0); Monocytes # 0.6 10*3/uL (0.11-0.8); Monocytes % 11.9 % (1.7-12.7); Neutrophils # 3.4 10*3/uL (1.4-7.4); Neutrophils % 62.6 % (38.7-73.9); Platelet Count 55 T/CUMM (130-400); Red Blood Count 3.34 MC/CUMM (3.8-5.5); Red Cell Distribution Width 17.1 % (9.3-17.3); White Blood Count 5.4 T/CUMM (4-12)
[2018-06-19 06:52] LABS: Calcium 7.8 MG/DL (8.5-10.1); Hypochromasia 1+; Microcytosis 1+; Osmolality,Calculated 284.1 MOS/KG (273-304); Platelet Estimate Decreased; Potassium 4.8 MMOL/L (3.5-5.1)
[2018-06-19] MEDS: PIPERACILLIN/TAZOBACTAM 3,375 MG in SODIUM CHLORIDE 0.9% 100 ML IV SCH (08:34)
[2018-06-19] MEDS: SEVELAMER CARBONATE 800 MG TABLET PO SCH ×2 (08:50→17:40)
[2018-06-19] MEDS: METOCLOPRAMIDE 5 MG TABLET PO SCH ×2 (08:50→17:40)
[2018-06-19] MEDS: MULTIVITAMIN (BEROCCA) TABLET PO SCH (08:51)
[2018-06-19] MEDS: FLUTICASONE 50 MCG NASAL SPRAY 16 GM BOTTLE BOTH NARES SCH (08:52)
[2018-06-19] MEDS: ASCORBIC ACID 500 MG TABLET PO SCH (08:53)
[2018-06-19] MEDS: CETIRIZINE 10 MG TABLET PO SCH (08:53)
[2018-06-19] MEDS: PANTOPRAZOLE 40 MG TABLET PO SCH (08:53)
[2018-06-19] MEDS: LOPERAMIDE 2 MG CAPSULE PO SCH ×3 (11:57→17:41)
[2018-06-19 19:30] VITALS: BP 110/60
== END 2018-06-19 19:10 | disposition home or self-care (01) | DRG 602 ==
LOC: N.ICU → PREINTOOBSV 18:39 → SUATTDRO 18:45 → OBSVTOIN 19:00 → SUATTDRO 19:00 → N.3E 06-17 15:15
PROVIDERS: ADMIT Internal Medicine; ATTEND Internal Medicine

== ENCOUNTER 2018-07-14 22:54 | Inpatient (IN) ==
[2018-07-15] MEDS ORDERED: ONDANSETRON 4 MG/2 ML VIAL IV PRN (01:34)
[2018-07-15] MEDS ORDERED: DEXTROSE 50% 25 GM/50 ML VIAL IV PRN (01:34)
[2018-07-15] MEDS ORDERED: GLUCAGON 1 MG VIAL IM PRN (01:34)
[2018-07-15] MEDS ORDERED: CEFTAROLINE 200 MG in SODIUM CHLORIDE 0.9% 100 ML IV SCH (02:00)
[2018-07-15 07:10] LABS: Basophils % 0.2 % (0.0-0.8); Eosinophils % 0.2 % (0.00-10.9); Hematocrit 32.6 VOL% (35.7-47.0); Hemoglobin 9.9 GM/DL (12.0-16.0); Immature Granulocytes % 0.6 %; Lymphocytes # 1.7 10*3/uL (1.4-4.0); Lymphocytes % 10.3 % (21.3-54.2); Mean Corpuscular HGB Conc 30.4 GM/DL (32-36); Mean Corpuscular Hemoglobin 29 PG (27-34); Mean Corpuscular Volume 95.6 FL (87-102); Mean Platelet Volume 9.8 FL (9.6-12.0); Monocytes # 0.8 10*3/uL (0.11-0.8); Monocytes % 4.6 % (1.7-12.7); NRBC # 0.02 10*3/uL; Neutrophils # 14.1 10*3/uL (1.4-7.4); Neutrophils % 84.1 % (38.7-73.9); Platelet Count 45 T/CUMM (130-400); Red Blood Count 3.41 MC/CUMM (3.8-5.5); White Blood Count 16.7 T/CUMM (4-12)
[2018-07-15 07:29] LABS: Hypochromasia 1+; Microcytosis 1+; Platelet Estimate Decreased
[2018-07-15 07:37] LABS: Albumin 1.8 G/DL (3.4-5.0); Bilirubin,Total 1.1 MG/DL (0.2-1.0); Calcium 7.8 MG/DL (8.5-10.1); Osmolality,Calculated 295.5 MOS/KG (273-304); Potassium 3.8 MMOL/L (3.5-5.1); Total Protein 6.1 G/DL (6.4-8.3)
[2018-07-15] MEDS: INSULIN REGULAR 100 UNIT/ML SUBCUT SCH ×2 (08:34→16:34)
[2018-07-15] MEDS: PANTOPRAZOLE 40 MG TABLET PO SCH (08:34)
[2018-07-15] MEDS ORDERED: SODIUM CHLORIDE 0.9% 1,000 ML IV PRN (09:18)
[2018-07-15 09:52] LABS: Total Protein 6.3 G/DL (6.4-8.3)
[2018-07-15] MEDS ORDERED: ALBUMIN 25% 50 GM in PREMIX 1 EACH IV ONE (10:00)
[2018-07-15] MEDS ORDERED: EPOETIN ALFA 10,000 UNIT/1 ML VIAL IV PRN (10:14)
[2018-07-15] MEDS: ACETAMINOPHEN 325 MG TABLET PO PRN ×2 (11:56→21:23)
[2018-07-15] MEDS: DESITIN 4OZ/NYSTATIN 15 GRAM MIXTURE PASTE TOP SCH ×2 (11:57→21:23)
[2018-07-15] MEDS: cefTRIAXone 1,000 MG in SYRINGE 1 EACH IV SCH (14:52)
[2018-07-16 03:44] LABS: Basophils % 0.2 % (0.0-0.8); Eosinophils # 0.1 10*3/uL (0.0-0.87); Eosinophils % 1.2 % (0.00-10.9); Hemoglobin 9.3 GM/DL (12.0-16.0); Immature Granulocytes % 0.5 %; Immature Granulocytes Absolute 0.03 #; Lymphocytes # 1.1 10*3/uL (1.4-4.0); Lymphocytes % 16.5 % (21.3-54.2); Mean Corpuscular Hemoglobin 30 PG (27-34); Mean Corpuscular Volume 96.2 FL (87-102); Mean Platelet Volume 10.7 FL (9.6-12.0); Monocytes # 0.4 10*3/uL (0.11-0.8); Monocytes % 6.5 % (1.7-12.7); Neutrophils % 75.1 % (38.7-73.9); Platelet Count 41 T/CUMM (130-400); Red Blood Count 3.12 MC/CUMM (3.8-5.5); Red Cell Distribution Width 18.7 % (9.3-17.3); White Blood Count 6.6 T/CUMM (4-12)
[2018-07-16 04:02] LABS: Calcium 8.1 MG/DL (8.5-10.1); Osmolality,Calculated 287.7 MOS/KG (273-304); Potassium 3.4 MMOL/L (3.5-5.1)
[2018-07-16 04:29] LABS: Hypochromasia 1+; Ovalocytes Slight; Platelet Estimate Decreased
[2018-07-16 04:30] LABS: Microcytosis 1+
[2018-07-16] MEDS ORDERED: SODIUM CHLORIDE 0.9% 1,000 ML IV PRN (06:44)
[2018-07-16] MEDS ORDERED: LOPERAMIDE 2 MG CAPSULE PO PRN (08:10)
[2018-07-16] MEDS: cefTRIAXone 1,000 MG in SYRINGE 1 EACH IV SCH (08:53)
[2018-07-16] MEDS ORDERED: ALBUMIN 25% 50 GM in PREMIX 1 EACH IV ONE (09:00)
[2018-07-16] MEDS: INSULIN REGULAR 100 UNIT/ML SUBCUT SCH ×2 (09:00→16:38)
[2018-07-16] MEDS: DESITIN 4OZ/NYSTATIN 15 GRAM MIXTURE PASTE TOP SCH ×2 (09:00→20:31)
[2018-07-16] MEDS: PANTOPRAZOLE 40 MG TABLET PO SCH (09:01)
[2018-07-16] MEDS: ASPIRIN EC 81 MG TABLET PO SCH (09:01)
[2018-07-16] MEDS: ASCORBIC ACID 500 MG TABLET PO SCH (09:02)
[2018-07-16] MEDS: MIDODRINE 5 MG TABLET PO SCH ×3 (09:02→20:30)
[2018-07-16 10:58] LABS: Neutrophils,Peritoneal Fluid 22 %
[2018-07-16 10:59] LABS: RBC,Peritoneal Fluid 9 T/CUMM
[2018-07-16] MEDS: SEVELAMER CARBONATE 800 MG TABLET PO SCH ×2 (11:39→16:38)
[2018-07-16] MEDS: METOCLOPRAMIDE 5 MG TABLET PO SCH ×2 (11:40→16:39)
[2018-07-17] MEDS: ACETAMINOPHEN 325 MG TABLET PO PRN (00:36)
[2018-07-17 03:20] LABS: Basophils % 0.2 % (0.0-0.8); Eosinophils # 0.1 10*3/uL (0.0-0.87); Hematocrit 25.8 VOL% (35.7-47.0); Hemoglobin 7.9 GM/DL (12.0-16.0); Immature Granulocytes % 0.3 %; Immature Granulocytes Absolute 0.02 #; Lymphocytes # 1.1 10*3/uL (1.4-4.0); Lymphocytes % 19.1 % (21.3-54.2); Mean Corpuscular HGB Conc 30.6 GM/DL (32-36); Mean Corpuscular Hemoglobin 29 PG (27-34); Mean Corpuscular Volume 95.6 FL (87-102); Mean Platelet Volume 11.4 FL (9.6-12.0); Monocytes # 0.5 10*3/uL (0.11-0.8); Monocytes % 9.2 % (1.7-12.7); Neutrophils # 4.1 10*3/uL (1.4-7.4); Neutrophils % 69.2 % (38.7-73.9); Red Cell Distribution Width 18.5 % (9.3-17.3); White Blood Count 5.9 T/CUMM (4-12)
[2018-07-17 03:32] LABS: Platelet Count 37 T/CUMM (130-400)
[2018-07-17 03:37] LABS: Calcium 7.4 MG/DL (8.5-10.1); Osmolality,Calculated 289.8 MOS/KG (273-304); Potassium 3.7 MMOL/L (3.5-5.1)
[2018-07-17 04:00] LABS: Hypochromasia Slight; Platelet Estimate Decreased; Polychromasia Few
[2018-07-17] MEDS ORDERED: SODIUM CHLORIDE 0.9% 1,000 ML IV PRN (07:27)
[2018-07-17] MEDS: INSULIN REGULAR 100 UNIT/ML SUBCUT SCH ×2 (08:57→17:42)
[2018-07-17] MEDS: DESITIN 4OZ/NYSTATIN 15 GRAM MIXTURE PASTE TOP SCH ×2 (08:58→21:16)
[2018-07-17] MEDS: MIDODRINE 5 MG TABLET PO SCH ×3 (08:58→21:22)
[2018-07-17] MEDS: SEVELAMER CARBONATE 800 MG TABLET PO SCH ×3 (08:58→17:42)
[2018-07-17] MEDS: PANTOPRAZOLE 40 MG TABLET PO SCH (08:58)
[2018-07-17] MEDS: ASCORBIC ACID 500 MG TABLET PO SCH (08:58)
[2018-07-17] MEDS: METOCLOPRAMIDE 5 MG TABLET PO SCH ×3 (08:58→17:42)
[2018-07-17] MEDS: cefTRIAXone 1,000 MG in SYRINGE 1 EACH IV SCH (08:58)
[2018-07-17] MEDS: ASPIRIN EC 81 MG TABLET PO SCH (08:58)
[2018-07-18 03:53] LABS: Basophils % 0.2 % (0.0-0.8); Eosinophils # 0.1 10*3/uL (0.0-0.87); Hematocrit 30.4 VOL% (35.7-47.0); Hemoglobin 9.6 GM/DL (12.0-16.0); Immature Granulocytes % 0.5 %; Immature Granulocytes Absolute 0.03 #; Lymphocytes # 1.2 10*3/uL (1.4-4.0); Lymphocytes % 21.2 % (21.3-54.2); Mean Corpuscular HGB Conc 31.6 GM/DL (32-36); Mean Corpuscular Hemoglobin 30 PG (27-34); Mean Corpuscular Volume 94.4 FL (87-102); Mean Platelet Volume 10.4 FL (9.6-12.0); Monocytes # 0.5 10*3/uL (0.11-0.8); Monocytes % 8.7 % (1.7-12.7); Neutrophils # 3.7 10*3/uL (1.4-7.4); Neutrophils % 67.4 % (38.7-73.9); Red Blood Count 3.22 MC/CUMM (3.8-5.5); White Blood Count 5.5 T/CUMM (4-12)
[2018-07-18 04:01] LABS: Platelet Count 41 T/CUMM (130-400)
[2018-07-18 04:25] LABS: Platelet Estimate Decreased
[2018-07-18 04:26] LABS: Anisocytosis 1+
[2018-07-18 04:27] LABS: Macrocytosis 1+; Polychromasia Few
[2018-07-18 07:41] VITALS: BP 126/75
[2018-07-18] MEDS: SEVELAMER CARBONATE 800 MG TABLET PO SCH (08:28)
[2018-07-18] MEDS: METOCLOPRAMIDE 5 MG TABLET PO SCH (08:29)
[2018-07-18] MEDS: MIDODRINE 5 MG TABLET PO SCH (08:29)
[2018-07-18] MEDS: PANTOPRAZOLE 40 MG TABLET PO SCH (08:29)
[2018-07-18] MEDS: cefTRIAXone 1,000 MG in SYRINGE 1 EACH IV SCH (08:29)
[2018-07-18] MEDS: ASCORBIC ACID 500 MG TABLET PO SCH (08:29)
[2018-07-18] MEDS: ASPIRIN EC 81 MG TABLET PO SCH (08:29)
[2018-07-18] MEDS: DESITIN 4OZ/NYSTATIN 15 GRAM MIXTURE PASTE TOP SCH (08:30)
[2018-07-18] MEDS: INSULIN REGULAR 100 UNIT/ML SUBCUT SCH (08:30)
== END 2018-07-18 10:52 | disposition home or self-care (01) | DRG 432 ==
LOC: SUATTDRO 07-15 00:40 → N.2E 07-15 00:40
PROVIDERS: ADMIT Internal Medicine; ATTEND Internal Medicine

== ENCOUNTER 2018-08-27 17:43 | Inpatient (IN) ==
[2018-08-27] MEDS ORDERED: GLUCAGON 1 MG VIAL IM PRN (18:31)
[2018-08-27] MEDS ORDERED: ONDANSETRON 4 MG/2 ML VIAL IV PRN (18:31)
[2018-08-27] MEDS ORDERED: DEXTROSE 50% 25 GM/50 ML VIAL IV PRN (18:31)
[2018-08-27] MEDS ORDERED: LOPERAMIDE 2 MG CAPSULE PO PRN (18:39)
[2018-08-27] MEDS ORDERED: HYDROCORTISONE 2.5% RECTAL CREAM 30 GM TUBE TOP PRN (20:24)
[2018-08-27] MEDS: INSULIN REGULAR 100 UNIT/ML SUBCUT SCH (21:51)
[2018-08-27] MEDS: GABAPENTIN 100 MG CAPSULE PO SCH (21:52)
[2018-08-27] MEDS: MIDODRINE 5 MG TABLET PO SCH (21:52)
[2018-08-27] MEDS: ACETAMINOPHEN 325 MG TABLET PO PRN (23:52)
[2018-08-28] MEDS: ACETAMINOPHEN 325 MG TABLET PO PRN (04:00)
[2018-08-28 07:06] LABS: Basophils % 0.3 % (0.0-0.8); Eosinophils # 0.1 10*3/uL (0.0-0.87); Eosinophils % 1.8 % (0.00-10.9); Hematocrit 32.4 VOL% (35.7-47.0); Hemoglobin 10.1 GM/DL (12.0-16.0); Immature Granulocytes % 0.3 %; Immature Granulocytes Absolute 0.02 #; Lymphocytes # 1.8 10*3/uL (1.4-4.0); Lymphocytes % 24.6 % (21.3-54.2); Mean Corpuscular HGB Conc 31.2 GM/DL (32-36); Mean Corpuscular Hemoglobin 29 PG (27-34); Mean Corpuscular Volume 94.5 FL (87-102); Mean Platelet Volume 9.4 FL (9.6-12.0); Monocytes # 0.7 10*3/uL (0.11-0.8); Monocytes % 9.1 % (1.7-12.7); NRBC # 0.02 10*3/uL; Neutrophils # 4.6 10*3/uL (1.4-7.4); Neutrophils % 63.9 % (38.7-73.9); Red Blood Count 3.43 MC/CUMM (3.8-5.5); Red Cell Distribution Width 17.8 % (9.3-17.3); White Blood Count 7.1 T/CUMM (4-12)
[2018-08-28 07:08] LABS: Platelet Count 60 T/CUMM (130-400)
[2018-08-28 07:22] LABS: Hypochromasia 1+
[2018-08-28 07:23] LABS: Macrocytosis 1+; Ovalocytes Few; Platelet Estimate Decreased; Polychromasia Slight
[2018-08-28 07:37] LABS: INR 1.1; PT Patient Result 12.2 SECS
[2018-08-28 07:43] LABS: Albumin 1.4 G/DL (3.4-5.0); Bilirubin,Total 1.4 MG/DL (0.2-1.0); Calcium 7.2 MG/DL (8.5-10.1); Osmolality,Calculated 291.5 MOS/KG (273-304); Potassium 3.5 MMOL/L (3.5-5.1); Total Protein 5.4 G/DL (6.4-8.3)
[2018-08-28] MEDS: SEVELAMER CARBONATE 800 MG TABLET PO SCH ×3 (08:54→17:12)
[2018-08-28] MEDS: MULTIVITAMIN (BEROCCA) TABLET PO SCH (08:54)
[2018-08-28] MEDS: INSULIN REGULAR 100 UNIT/ML SUBCUT SCH ×4 (08:54→21:45)
[2018-08-28] MEDS: VITAMIN E 400 UNIT CAPSULE PO SCH (08:54)
[2018-08-28] MEDS: METOCLOPRAMIDE 5 MG TABLET PO SCH ×3 (08:54→17:12)
[2018-08-28] MEDS: PANTOPRAZOLE 40 MG TABLET PO SCH (08:55)
[2018-08-28] MEDS: GABAPENTIN 100 MG CAPSULE PO SCH ×3 (08:55→20:58)
[2018-08-28] MEDS: ASPIRIN EC 81 MG TABLET PO SCH (08:55)
[2018-08-28] MEDS: ASCORBIC ACID 500 MG TABLET PO SCH (08:55)
[2018-08-28] MEDS ORDERED: LIDOCAINE/PRILOCAINE CREAM 5 GM TUBE TOP SCH (09:00)
[2018-08-28] MEDS ORDERED: PRAMOXINE 1% RECTAL FOAM 15 GM CAN TOP PRN (11:33)
[2018-08-28] MEDS: WITCH HAZEL PADS 100/JAR TOP PRN ×2 (11:45→20:59)
[2018-08-28] MEDS: MIDODRINE 5 MG TABLET PO SCH ×3 (12:50→20:58)
[2018-08-28] MEDS ORDERED: LIDOCAINE 2% TOP JELLY 5 ML TUBE TOP PRN (15:59)
[2018-08-28] MEDS: INSULIN LISPRO 100 UNIT/ML SUBCUT SCH (17:12)
[2018-08-29 05:54] LABS: Albumin 1.3 G/DL (3.4-5.0); Bilirubin,Total 1.2 MG/DL (0.2-1.0); Calcium 6.9 MG/DL (8.5-10.1); Osmolality,Calculated 289.4 MOS/KG (273-304); Potassium 3.8 MMOL/L (3.5-5.1); Total Protein 5.3 G/DL (6.4-8.3)
[2018-08-29 07:59] LABS: Basophils % 0.4 % (0.0-0.8); Eosinophils # 0.1 10*3/uL (0.0-0.87); Eosinophils % 1.1 % (0.00-10.9); Hematocrit 33.2 VOL% (35.7-47.0); Hemoglobin 10.2 GM/DL (12.0-16.0); Immature Granulocytes % 0.5 %; Immature Granulocytes Absolute 0.04 #; Lymphocytes # 1.6 10*3/uL (1.4-4.0); Lymphocytes % 18.6 % (21.3-54.2); Mean Corpuscular HGB Conc 30.7 GM/DL (32-36); Mean Corpuscular Hemoglobin 30 PG (27-34); Mean Corpuscular Volume 96.2 FL (87-102); Mean Platelet Volume 9.6 FL (9.6-12.0); Monocytes # 0.6 10*3/uL (0.11-0.8); Monocytes % 7.1 % (1.7-12.7); NRBC # 0.02 10*3/uL; Neutrophils # 6.2 10*3/uL (1.4-7.4); Neutrophils % 72.3 % (38.7-73.9); Red Blood Count 3.45 MC/CUMM (3.8-5.5); White Blood Count 8.6 T/CUMM (4-12)
[2018-08-29 08:03] LABS: Platelet Count 61 T/CUMM (130-400)
[2018-08-29 08:25] LABS: Hypochromasia 1+
[2018-08-29 08:26] LABS: Macrocytosis 1+; Ovalocytes Slight; Polychromasia Slight
[2018-08-29 08:27] LABS: Platelet Estimate Decreased
[2018-08-29] MEDS: HYDROCORTISONE 25 MG SUPP RECTAL SCH ×3 (09:54→20:59)
[2018-08-29] MEDS: INSULIN LISPRO 100 UNIT/ML SUBCUT SCH ×2 (09:55→17:49)
[2018-08-29] MEDS: SEVELAMER CARBONATE 800 MG TABLET PO SCH ×3 (09:55→17:49)
[2018-08-29] MEDS: BISACODYL 5 MG TABLET PO SCH ×3 (09:56→20:59)
[2018-08-29] MEDS: ASPIRIN EC 81 MG TABLET PO SCH (09:56)
[2018-08-29] MEDS: PANTOPRAZOLE 40 MG TABLET PO SCH (09:56)
[2018-08-29] MEDS: ASCORBIC ACID 500 MG TABLET PO SCH (09:56)
[2018-08-29] MEDS: GABAPENTIN 100 MG CAPSULE PO SCH ×3 (09:56→20:59)
[2018-08-29] MEDS: MIDODRINE 5 MG TABLET PO SCH ×3 (09:56→21:01)
[2018-08-29] MEDS: VITAMIN E 400 UNIT CAPSULE PO SCH (09:56)
[2018-08-29] MEDS: MULTIVITAMIN (BEROCCA) TABLET PO SCH (09:56)
[2018-08-29] MEDS: METOCLOPRAMIDE 5 MG TABLET PO SCH ×3 (09:57→17:50)
[2018-08-29] MEDS: INSULIN REGULAR 100 UNIT/ML SUBCUT SCH ×4 (09:59→22:10)
[2018-08-29] MEDS: ALBUMIN 25% 12.5 GM in PREMIX 1 EACH IV PRN ×2 (14:05→14:32)
[2018-08-29] MEDS ORDERED: ALBUMIN 25% 12.5 GM/50 ML VIAL IV ONE (14:15)
[2018-08-29] MEDS: WITCH HAZEL PADS 100/JAR TOP PRN (15:14)
[2018-08-29] MEDS ORDERED: POLYETHYLENE GLYCOL 3350/ELECTROLYTES 4,000 ML BOTTLE PO ONE (18:00)
[2018-08-29] MEDS ORDERED: MAGNESIUM CITRATE 300 ML BOTTLE PO ONE (21:00)
[2018-08-30 06:44] LABS: Basophils % 0.4 % (0.0-0.8); Eosinophils # 0.1 10*3/uL (0.0-0.87); Eosinophils % 1.2 % (0.00-10.9); Hematocrit 37.8 VOL% (35.7-47.0); Hemoglobin 11.6 GM/DL (12.0-16.0); Immature Granulocytes % 0.5 %; Immature Granulocytes Absolute 0.06 #; Lymphocytes # 2.4 10*3/uL (1.4-4.0); Lymphocytes % 21.4 % (21.3-54.2); Mean Corpuscular HGB Conc 30.7 GM/DL (32-36); Mean Corpuscular Hemoglobin 29 PG (27-34); Mean Corpuscular Volume 94.5 FL (87-102); Mean Platelet Volume 9.9 FL (9.6-12.0); Monocytes # 0.6 10*3/uL (0.11-0.8); Monocytes % 5.6 % (1.7-12.7); Neutrophils % 70.9 % (38.7-73.9); Platelet Count 69 T/CUMM (130-400); Red Cell Distribution Width 17.9 % (9.3-17.3); White Blood Count 11.3 T/CUMM (4-12)
[2018-08-30 06:59] LABS: Albumin 1.5 G/DL (3.4-5.0); Bilirubin,Total 1.5 MG/DL (0.2-1.0); Calcium 7.1 MG/DL (8.5-10.1); Potassium 3.7 MMOL/L (3.5-5.1); Total Protein 5.3 G/DL (6.4-8.3)
[2018-08-30 07:13] LABS: Hypochromasia 1+; Ovalocytes Slight; Platelet Estimate Decreased
[2018-08-30 07:14] LABS: Macrocytosis Slight; Polychromasia Slight
[2018-08-30] MEDS ORDERED: SODIUM CHLORIDE 0.9% 250 ML IV ONE ×2 (07:18→07:34)
[2018-08-30] MEDS ORDERED: ALBUMIN 25% 12.5 GM/50 ML VIAL IV ONE (07:21)
[2018-08-30] MEDS ORDERED: LACTATED RINGERS 250 ML IV ONE (07:32)
[2018-08-30] MEDS ORDERED: ALBUMIN 25% 50 GM in PREMIX 1 EACH IV ONE (07:32)
[2018-08-30] MEDS: BISACODYL 5 MG TABLET PO SCH (08:18)
[2018-08-30] MEDS: INSULIN LISPRO 100 UNIT/ML SUBCUT SCH (08:57)
[2018-08-30] MEDS: INSULIN REGULAR 100 UNIT/ML SUBCUT SCH ×2 (08:57→13:51)
[2018-08-30] MEDS ORDERED: LIDOCAINE 100 MG/5 ML SYRINGE ONE (09:00)
[2018-08-30] MEDS ORDERED: ETOMIDATE 20 MG/10 ML VIAL IV ONE (09:00)
[2018-08-30] MEDS: SEVELAMER CARBONATE 800 MG TABLET PO SCH ×2 (13:49→13:52)
[2018-08-30] MEDS: ASCORBIC ACID 500 MG TABLET PO SCH (13:49)
[2018-08-30] MEDS: ASPIRIN EC 81 MG TABLET PO SCH (13:50)
[2018-08-30] MEDS: PANTOPRAZOLE 40 MG TABLET PO SCH (13:50)
[2018-08-30] MEDS: MULTIVITAMIN (BEROCCA) TABLET PO SCH (13:50)
[2018-08-30] MEDS: GABAPENTIN 100 MG CAPSULE PO SCH (13:50)
[2018-08-30] MEDS: VITAMIN E 400 UNIT CAPSULE PO SCH (13:50)
[2018-08-30] MEDS: MIDODRINE 5 MG TABLET PO SCH (13:50)
[2018-08-30] MEDS: HYDROCORTISONE 25 MG SUPP RECTAL SCH (13:50)
[2018-08-30] MEDS: METOCLOPRAMIDE 5 MG TABLET PO SCH ×2 (13:54)
[2018-08-30 15:31] VITALS: BP 98/72
== END 2018-08-30 16:55 | disposition home or self-care (01) | DRG 441 ==
LOC: EDBD → EDUNIT# → N.ED 17:43 → N.EDINP 17:43 → N.5E 19:34 → SUATTDRO 08-29 12:37
PROVIDERS: ADMIT Internal Medicine; ATTEND Internal Medicine
PROC: COLONBX (2018-08-30 07:05)

== ENCOUNTER 2018-08-31 08:38 | Observation (INO) ==
[2018-08-31] MEDS ORDERED: ONDANSETRON 4 MG/2 ML VIAL IV PRN ×2 (12:18→12:21)
[2018-08-31] MEDS ORDERED: MORPHINE 4 MG/1 ML VIAL IV PRN (12:21)
[2018-08-31] MEDS ORDERED: WITCH HAZEL PADS 100/JAR TOP PRN (12:21)
[2018-08-31] MEDS ORDERED: DEXTROSE 50% 25 GM/50 ML VIAL IV PRN (12:21)
[2018-08-31] MEDS ORDERED: LOPERAMIDE 2 MG CAPSULE PO PRN (12:21)
[2018-08-31] MEDS ORDERED: GLUCAGON 1 MG VIAL IM PRN (12:21)
[2018-08-31] MEDS ORDERED: ALBUMIN 25% 50 GM in PREMIX 1 EACH IV ONE (12:24)
[2018-08-31] MEDS: MIDODRINE 5 MG TABLET PO SCH ×2 (14:19→21:57)
[2018-08-31] MEDS: HYDROCORTISONE 25 MG SUPP RECTAL SCH ×2 (14:19→21:57)
[2018-08-31] MEDS: INSULIN LISPRO 100 UNIT/ML SUBCUT SCH (16:31)
[2018-08-31] MEDS: METOCLOPRAMIDE 5 MG TABLET PO SCH (16:32)
[2018-08-31] MEDS: SEVELAMER CARBONATE 800 MG TABLET PO SCH (16:32)
[2018-08-31] MEDS ORDERED: ENOXAPARIN 30 MG/0.3 ML SYRINGE SUBCUT SCH (21:00)
[2018-08-31] MEDS: PANTOPRAZOLE 40 MG TABLET PO SCH (21:57)
[2018-08-31] MEDS: PRAMOXINE 1% RECTAL FOAM 15 GM CAN TOP PRN (21:58)
[2018-09-01] MEDS: ACETAMINOPHEN 325 MG TABLET PO PRN ×5 (02:41→22:19)
[2018-09-01 05:05] LABS: Basophils % 0.3 % (0.0-0.8); Eosinophils # 0.2 10*3/uL (0.0-0.87); Eosinophils % 2.1 % (0.00-10.9); Hematocrit 34.5 VOL% (35.7-47.0); Hemoglobin 10.5 GM/DL (12.0-16.0); Immature Granulocytes % 0.4 %; Immature Granulocytes Absolute 0.03 #; Lymphocytes # 0.9 10*3/uL (1.4-4.0); Lymphocytes % 13.1 % (21.3-54.2); Mean Corpuscular HGB Conc 30.4 GM/DL (32-36); Mean Corpuscular Hemoglobin 29 PG (27-34); Mean Corpuscular Volume 94.3 FL (87-102); Mean Platelet Volume 10.3 FL (9.6-12.0); Monocytes # 0.5 10*3/uL (0.11-0.8); Monocytes % 6.7 % (1.7-12.7); Neutrophils # 5.6 10*3/uL (1.4-7.4); Neutrophils % 77.4 % (38.7-73.9); Red Blood Count 3.66 MC/CUMM (3.8-5.5); Red Cell Distribution Width 17.2 % (9.3-17.3); White Blood Count 7.2 T/CUMM (4-12)
[2018-09-01 05:35] LABS: Platelet Count 37 T/CUMM (130-400)
[2018-09-01 06:42] LABS: Albumin 2.3 G/DL (3.4-5.0); Bilirubin,Total 1.3 MG/DL (0.2-1.0); Calcium 7.4 MG/DL (8.5-10.1); Osmolality,Calculated 287.8 MOS/KG (273-304); Potassium 3.3 MMOL/L (3.5-5.1); Total Protein 5.4 G/DL (6.4-8.3)
[2018-09-01] MEDS: MIDODRINE 5 MG TABLET PO SCH ×3 (08:57→22:09)
[2018-09-01] MEDS: SEVELAMER CARBONATE 800 MG TABLET PO SCH ×3 (08:57→16:13)
[2018-09-01] MEDS: METOCLOPRAMIDE 5 MG TABLET PO SCH ×3 (08:57→16:13)
[2018-09-01] MEDS: VITAMIN E 400 UNIT CAPSULE PO SCH (08:58)
[2018-09-01] MEDS: HYDROCORTISONE 25 MG SUPP RECTAL SCH ×3 (08:58→22:10)
[2018-09-01] MEDS: ASPIRIN EC 81 MG TABLET PO SCH (08:58)
[2018-09-01] MEDS: PANTOPRAZOLE 40 MG TABLET PO SCH ×2 (08:58→22:10)
[2018-09-01] MEDS: ASCORBIC ACID 500 MG TABLET PO SCH (08:58)
[2018-09-01] MEDS ORDERED: PANTOPRAZOLE 40 MG TABLET PO SCH (09:00)
[2018-09-01] MEDS: INSULIN LISPRO 100 UNIT/ML SUBCUT SCH ×2 (09:04→16:13)
[2018-09-01] MEDS: PRAMOXINE 1% RECTAL FOAM 15 GM CAN TOP PRN (10:15)
[2018-09-02] MEDS: INSULIN LISPRO 100 UNIT/ML SUBCUT SCH (08:56)
[2018-09-02] MEDS: PANTOPRAZOLE 40 MG TABLET PO SCH (10:29)
[2018-09-02] MEDS: ASCORBIC ACID 500 MG TABLET PO SCH (10:29)
[2018-09-02] MEDS: MIDODRINE 5 MG TABLET PO SCH ×2 (10:29→14:06)
[2018-09-02] MEDS: ASPIRIN EC 81 MG TABLET PO SCH (10:29)
[2018-09-02] MEDS: HYDROCORTISONE 25 MG SUPP RECTAL SCH ×3 (10:29→14:06)
[2018-09-02] MEDS: SEVELAMER CARBONATE 800 MG TABLET PO SCH ×2 (10:29→14:06)
[2018-09-02] MEDS: METOCLOPRAMIDE 5 MG TABLET PO SCH ×2 (10:29→14:06)
[2018-09-02] MEDS: VITAMIN E 400 UNIT CAPSULE PO SCH (10:29)
[2018-09-02] MEDS: ACETAMINOPHEN 325 MG TABLET PO PRN (14:40)
[2018-09-02 14:59] VITALS: BP 85/44
== END 2018-09-02 15:10 | disposition home or self-care (01) ==
LOC: N.5E → SUATTDRO 10:52
PROVIDERS: ADMIT Internal Medicine; ATTEND Internal Medicine

== ENCOUNTER 2018-09-06 15:35 | Inpatient (IN) ==
[2018-09-06] MEDS ORDERED: WITCH HAZEL PADS 100/JAR TOP PRN (19:02)
[2018-09-06] MEDS ORDERED: LOPERAMIDE 2 MG CAPSULE PO PRN (19:02)
[2018-09-06] MEDS ORDERED: GLUCAGON 1 MG VIAL IM PRN (19:06)
[2018-09-06] MEDS ORDERED: DEXTROSE 50% 25 GM/50 ML VIAL IV PRN (19:06)
[2018-09-06] MEDS ORDERED: LIDOCAINE/PRILOCAINE CREAM 5 GM TUBE TOP SCH (19:15)
[2018-09-06] MEDS: MIDODRINE 5 MG TABLET PO SCH (20:50)
[2018-09-06] MEDS: PANTOPRAZOLE 40 MG TABLET PO SCH (20:51)
[2018-09-06] MEDS: GABAPENTIN 100 MG CAPSULE PO SCH (20:51)
[2018-09-06] MEDS: INSULIN REGULAR 100 UNIT/ML SUBCUT SCH (20:51)
[2018-09-06] MEDS: PRAMOXINE 1% RECTAL FOAM 15 GM CAN TOP PRN (20:55)
[2018-09-06] MEDS: HYDROCORTISONE 25 MG SUPP RECTAL SCH (20:57)
[2018-09-07] MEDS: HYDROCORTISONE 2.5% RECTAL CREAM 30 GM TUBE TOP PRN ×2 (05:46→21:08)
[2018-09-07 05:58] LABS: Basophils % 0.2 % (0.0-0.8); Eosinophils # 0.1 10*3/uL (0.0-0.87); Eosinophils % 1.3 % (0.00-10.9); Hematocrit 32.7 VOL% (35.7-47.0); Hemoglobin 9.9 GM/DL (12.0-16.0); Immature Granulocytes % 0.5 %; Immature Granulocytes Absolute 0.05 #; Lymphocytes # 1.5 10*3/uL (1.4-4.0); Lymphocytes % 16.8 % (21.3-54.2); Mean Corpuscular HGB Conc 30.3 GM/DL (32-36); Mean Corpuscular Hemoglobin 29 PG (27-34); Mean Corpuscular Volume 95.9 FL (87-102); Mean Platelet Volume 9.9 FL (9.6-12.0); Monocytes # 0.6 10*3/uL (0.11-0.8); Monocytes % 6.3 % (1.7-12.7); Neutrophils # 6.9 10*3/uL (1.4-7.4); Neutrophils % 74.9 % (38.7-73.9); Red Blood Count 3.41 MC/CUMM (3.8-5.5); Red Cell Distribution Width 18.6 % (9.3-17.3); White Blood Count 9.2 T/CUMM (4-12)
[2018-09-07 05:59] LABS: Platelet Count 78 T/CUMM (130-400)
[2018-09-07 06:23] LABS: Albumin 1.8 G/DL (3.4-5.0); Bilirubin,Total 1.3 MG/DL (0.2-1.0); Calcium 7.6 MG/DL (8.5-10.1); Potassium 3.3 MMOL/L (3.5-5.1); Total Protein 5.5 G/DL (6.4-8.3)
[2018-09-07] MEDS: METOCLOPRAMIDE 5 MG TABLET PO SCH ×3 (06:38→16:32)
[2018-09-07] MEDS: INSULIN REGULAR 100 UNIT/ML SUBCUT SCH ×4 (07:50→21:07)
[2018-09-07] MEDS: INSULIN LISPRO 100 UNIT/ML SUBCUT SCH ×2 (07:50→16:34)
[2018-09-07] MEDS: SEVELAMER CARBONATE 800 MG TABLET PO SCH ×3 (08:18→16:32)
[2018-09-07] MEDS: MIDODRINE 5 MG TABLET PO SCH ×3 (08:18→21:06)
[2018-09-07] MEDS: VITAMIN E 400 UNIT CAPSULE PO SCH (08:18)
[2018-09-07] MEDS: MULTIVITAMIN (BEROCCA) TABLET PO SCH (08:18)
[2018-09-07] MEDS: PANTOPRAZOLE 40 MG TABLET PO SCH ×2 (08:19→21:06)
[2018-09-07] MEDS: ASPIRIN EC 81 MG TABLET PO SCH (08:19)
[2018-09-07] MEDS: ASCORBIC ACID 500 MG TABLET PO SCH (08:19)
[2018-09-07] MEDS: GABAPENTIN 100 MG CAPSULE PO SCH ×3 (08:19→21:06)
[2018-09-07] MEDS: HYDROCORTISONE 25 MG SUPP RECTAL SCH ×3 (08:51→21:06)
[2018-09-07] MEDS: PRAMOXINE 1% RECTAL FOAM 15 GM CAN TOP PRN (14:01)
[2018-09-08 04:51] LABS: Basophils % 0.3 % (0.0-0.8); Eosinophils # 0.1 10*3/uL (0.0-0.87); Eosinophils % 1.3 % (0.00-10.9); Hematocrit 34.2 VOL% (35.7-47.0); Hemoglobin 10.4 GM/DL (12.0-16.0); Immature Granulocytes % 0.5 %; Immature Granulocytes Absolute 0.06 #; Lymphocytes # 1.6 10*3/uL (1.4-4.0); Lymphocytes % 14.4 % (21.3-54.2); Mean Corpuscular HGB Conc 30.4 GM/DL (32-36); Mean Corpuscular Hemoglobin 29 PG (27-34); Mean Corpuscular Volume 96.3 FL (87-102); Mean Platelet Volume 9.6 FL (9.6-12.0); Monocytes # 0.7 10*3/uL (0.11-0.8); Monocytes % 6.4 % (1.7-12.7); Neutrophils # 8.4 10*3/uL (1.4-7.4); Neutrophils % 77.1 % (38.7-73.9); Red Blood Count 3.55 MC/CUMM (3.8-5.5); White Blood Count 10.9 T/CUMM (4-12)
[2018-09-08 04:55] LABS: Platelet Count 94 T/CUMM (130-400)
[2018-09-08 05:29] LABS: Albumin 1.8 G/DL (3.4-5.0); Bilirubin,Total 1.1 MG/DL (0.2-1.0); Calcium 7.5 MG/DL (8.5-10.1); Osmolality,Calculated 293.3 MOS/KG (273-304); Total Protein 5.7 G/DL (6.4-8.3)
[2018-09-08] MEDS: METOCLOPRAMIDE 5 MG TABLET PO SCH ×3 (06:53→15:44)
[2018-09-08] MEDS: SEVELAMER CARBONATE 800 MG TABLET PO SCH ×3 (08:52→17:47)
[2018-09-08] MEDS: ASPIRIN EC 81 MG TABLET PO SCH (08:52)
[2018-09-08] MEDS: ASCORBIC ACID 500 MG TABLET PO SCH (08:52)
[2018-09-08] MEDS: MULTIVITAMIN (BEROCCA) TABLET PO SCH (08:53)
[2018-09-08] MEDS: GABAPENTIN 100 MG CAPSULE PO SCH ×3 (08:53→22:10)
[2018-09-08] MEDS: VITAMIN E 400 UNIT CAPSULE PO SCH (08:53)
[2018-09-08] MEDS: PANTOPRAZOLE 40 MG TABLET PO SCH ×2 (08:53→22:10)
[2018-09-08] MEDS: INSULIN LISPRO 100 UNIT/ML SUBCUT SCH ×2 (09:50→17:46)
[2018-09-08] MEDS: INSULIN REGULAR 100 UNIT/ML SUBCUT SCH ×4 (09:50→21:39)
[2018-09-08] MEDS: HYDROCORTISONE 25 MG SUPP RECTAL SCH ×3 (09:50→22:10)
[2018-09-08] MEDS: MIDODRINE 5 MG TABLET PO SCH ×3 (09:51→22:10)
[2018-09-09 05:09] LABS: Basophils # 0.1 10*3/uL (0.0-0.2); Basophils % 0.4 % (0.0-0.8); Eosinophils # 0.3 10*3/uL (0.0-0.87); Eosinophils % 2.1 % (0.00-10.9); Hematocrit 34.9 VOL% (35.7-47.0); Hemoglobin 10.6 GM/DL (12.0-16.0); Immature Granulocytes % 0.8 %; Immature Granulocytes Absolute 0.09 #; Lymphocytes # 2.1 10*3/uL (1.4-4.0); Lymphocytes % 17.5 % (21.3-54.2); Mean Corpuscular HGB Conc 30.4 GM/DL (32-36); Mean Corpuscular Hemoglobin 29 PG (27-34); Mean Corpuscular Volume 95.9 FL (87-102); Mean Platelet Volume 9.8 FL (9.6-12.0); Monocytes # 0.8 10*3/uL (0.11-0.8); Monocytes % 7.2 % (1.7-12.7); Neutrophils # 8.5 10*3/uL (1.4-7.4); Red Blood Count 3.64 MC/CUMM (3.8-5.5); Red Cell Distribution Width 18.8 % (9.3-17.3); White Blood Count 11.7 T/CUMM (4-12)
[2018-09-09 05:12] LABS: Platelet Count 96 T/CUMM (130-400)
[2018-09-09 05:37] LABS: Albumin 1.8 G/DL (3.4-5.0); Bilirubin,Total 0.8 MG/DL (0.2-1.0); Calcium 7.8 MG/DL (8.5-10.1); Osmolality,Calculated 292.5 MOS/KG (273-304); Potassium 4.2 MMOL/L (3.5-5.1); Total Protein 5.7 G/DL (6.4-8.3)
[2018-09-09] MEDS: METOCLOPRAMIDE 5 MG TABLET PO SCH ×3 (08:01→18:26)
[2018-09-09] MEDS: SEVELAMER CARBONATE 800 MG TABLET PO SCH ×3 (08:01→18:26)
[2018-09-09] MEDS: GABAPENTIN 100 MG CAPSULE PO SCH ×3 (11:53→22:22)
[2018-09-09] MEDS: PANTOPRAZOLE 40 MG TABLET PO SCH ×2 (11:53→22:22)
[2018-09-09] MEDS: ASPIRIN EC 81 MG TABLET PO SCH (11:53)
[2018-09-09] MEDS: VITAMIN E 400 UNIT CAPSULE PO SCH (11:53)
[2018-09-09] MEDS: ASCORBIC ACID 500 MG TABLET PO SCH (11:53)
[2018-09-09] MEDS: INSULIN REGULAR 100 UNIT/ML SUBCUT SCH ×4 (12:19→22:23)
[2018-09-09] MEDS: INSULIN LISPRO 100 UNIT/ML SUBCUT SCH ×2 (12:19→18:10)
[2018-09-09] MEDS: HYDROCORTISONE 25 MG SUPP RECTAL SCH ×4 (12:20→22:28)
[2018-09-09] MEDS: MIDODRINE 5 MG TABLET PO SCH ×3 (14:07→22:22)
[2018-09-09] MEDS: HYDROCORTISONE 2.5% RECTAL CREAM 30 GM TUBE TOP PRN ×2 (14:30→22:30)
[2018-09-09] MEDS: MULTIVITAMIN (BEROCCA) TABLET PO SCH (15:07)
[2018-09-10 06:25] LABS: Basophils % 0.4 % (0.0-0.8); Eosinophils # 0.2 10*3/uL (0.0-0.87); Eosinophils % 1.4 % (0.00-10.9); Hematocrit 34.4 VOL% (35.7-47.0); Hemoglobin 10.3 GM/DL (12.0-16.0); Immature Granulocytes % 0.7 %; Immature Granulocytes Absolute 0.08 #; Lymphocytes # 1.6 10*3/uL (1.4-4.0); Lymphocytes % 14.9 % (21.3-54.2); Mean Corpuscular HGB Conc 29.9 GM/DL (32-36); Mean Corpuscular Hemoglobin 29 PG (27-34); Mean Corpuscular Volume 96.9 FL (87-102); Mean Platelet Volume 9.8 FL (9.6-12.0); Monocytes # 0.7 10*3/uL (0.11-0.8); Monocytes % 6.5 % (1.7-12.7); Neutrophils # 8.4 10*3/uL (1.4-7.4); Neutrophils % 76.1 % (38.7-73.9); Red Blood Count 3.55 MC/CUMM (3.8-5.5)
[2018-09-10 06:27] LABS: Platelet Count 94 T/CUMM (130-400)
[2018-09-10 06:50] LABS: Hypochromasia 1+; Ovalocytes Slight; Platelet Estimate Decreased
[2018-09-10 06:52] LABS: Albumin 1.8 G/DL (3.4-5.0); Bilirubin,Total 1.1 MG/DL (0.2-1.0); Calcium 7.6 MG/DL (8.5-10.1); Osmolality,Calculated 288.4 MOS/KG (273-304); Potassium 4.1 MMOL/L (3.5-5.1); Total Protein 5.9 G/DL (6.4-8.3)
[2018-09-10] MEDS: INSULIN REGULAR 100 UNIT/ML SUBCUT SCH (07:18)
[2018-09-10] MEDS: METOCLOPRAMIDE 5 MG TABLET PO SCH ×2 (07:47→13:24)
[2018-09-10] MEDS: SEVELAMER CARBONATE 800 MG TABLET PO SCH ×2 (07:47→13:25)
[2018-09-10] MEDS: INSULIN LISPRO 100 UNIT/ML SUBCUT SCH ×2 (07:47→11:55)
[2018-09-10] MEDS: MIDODRINE 5 MG TABLET PO SCH ×2 (08:35→13:24)
[2018-09-10] MEDS: VITAMIN E 400 UNIT CAPSULE PO SCH (08:35)
[2018-09-10] MEDS: PANTOPRAZOLE 40 MG TABLET PO SCH (08:36)
[2018-09-10] MEDS: MULTIVITAMIN (BEROCCA) TABLET PO SCH (08:36)
[2018-09-10] MEDS: ASPIRIN EC 81 MG TABLET PO SCH (08:36)
[2018-09-10] MEDS: GABAPENTIN 100 MG CAPSULE PO SCH (08:36)
[2018-09-10] MEDS: ASCORBIC ACID 500 MG TABLET PO SCH (08:36)
[2018-09-10] MEDS: ALBUMIN 25% 12.5 GM in PREMIX 1 EACH IV PRN ×2 (09:35→10:02)
[2018-09-10] MEDS ORDERED: ALBUMIN 25% 12.5 GM/50 ML VIAL IV ONE (09:37)
[2018-09-10] MEDS: HYDROCORTISONE 25 MG SUPP RECTAL SCH (11:56)
[2018-09-10 12:10] VITALS: BP 82/42
== END 2018-09-10 13:36 | disposition home or self-care (01) | DRG 432 ==
LOC: N.2E 18:33 → SUATTDRO 18:33
PROVIDERS: ADMIT Internal Medicine; ATTEND Internal Medicine

== ENCOUNTER 2018-09-12 09:51 | Observation (INO) ==
[2018-09-12] MEDS ORDERED: DOCUSATE SODIUM 100 MG CAPSULE PO PRN (11:22)
[2018-09-12] MEDS ORDERED: LACTULOSE 20 GM/30 ML UDCUP PO PRN (11:22)
[2018-09-12] MEDS ORDERED: DEXTROSE 50% 25 GM/50 ML VIAL IV PRN (11:22)
[2018-09-12] MEDS ORDERED: GLUCAGON 1 MG VIAL IM PRN (11:22)
[2018-09-12 11:48] LABS: Basophils # 0.1 10*3/uL (0.0-0.2); Basophils % 0.4 % (0.0-0.8); Eosinophils # 0.2 10*3/uL (0.0-0.87); Eosinophils % 1.6 % (0.00-10.9); Hematocrit 35.4 VOL% (35.7-47.0); Hemoglobin 10.6 GM/DL (12.0-16.0); Immature Granulocytes Absolute 0.13 #; Lymphocytes # 2.4 10*3/uL (1.4-4.0); Lymphocytes % 18.7 % (21.3-54.2); Mean Corpuscular HGB Conc 29.9 GM/DL (32-36); Mean Corpuscular Hemoglobin 29 PG (27-34); Mean Corpuscular Volume 96.2 FL (87-102); Mean Platelet Volume 10.2 FL (9.6-12.0); Monocytes # 0.9 10*3/uL (0.11-0.8); Neutrophils # 9.2 10*3/uL (1.4-7.4); Neutrophils % 71.3 % (38.7-73.9); Red Blood Count 3.68 MC/CUMM (3.8-5.5); Red Cell Distribution Width 19.1 % (9.3-17.3); White Blood Count 12.9 T/CUMM (4-12)
[2018-09-12 11:49] LABS: Platelet Count 68 T/CUMM (130-400)
[2018-09-12 12:19] LABS: Albumin 1.9 G/DL (3.4-5.0); Bilirubin,Total 1.1 MG/DL (0.2-1.0); Calcium 7.6 MG/DL (8.5-10.1); Osmolality,Calculated 289.8 MOS/KG (273-304); Potassium 4.1 MMOL/L (3.5-5.1); Total Protein 5.9 G/DL (6.4-8.3)
[2018-09-12 12:22] LABS: Anisocytosis 1+; Platelet Estimate Decreased
[2018-09-12] MEDS: INSULIN LISPRO 100 UNIT/ML SUBCUT SCH ×3 (17:12→21:10)
[2018-09-12] MEDS: PANTOPRAZOLE 40 MG TABLET PO SCH (17:13)
[2018-09-12] MEDS ORDERED: CALCIUM CARBONATE CHEW 500 MG TABLET PO PRN (17:28)
[2018-09-12] MEDS: GABAPENTIN 100 MG CAPSULE PO SCH (21:10)
[2018-09-12] MEDS: MIDODRINE 5 MG TABLET PO SCH (21:10)
[2018-09-12] MEDS: ACETAMINOPHEN 325 MG TABLET PO PRN (23:28)
[2018-09-13 05:31] LABS: Basophils % 0.3 % (0.0-0.8); Eosinophils # 0.1 10*3/uL (0.0-0.87); Hematocrit 33.5 VOL% (35.7-47.0); Hemoglobin 10.3 GM/DL (12.0-16.0); Immature Granulocytes % 0.8 %; Lymphocytes # 1.3 10*3/uL (1.4-4.0); Lymphocytes % 10.9 % (21.3-54.2); Mean Corpuscular HGB Conc 30.7 GM/DL (32-36); Mean Corpuscular Hemoglobin 30 PG (27-34); Mean Platelet Volume 9.7 FL (9.6-12.0); Monocytes # 0.7 10*3/uL (0.11-0.8); Neutrophils # 9.6 10*3/uL (1.4-7.4); Red Blood Count 3.49 MC/CUMM (3.8-5.5); Red Cell Distribution Width 19.2 % (9.3-17.3); White Blood Count 11.9 T/CUMM (4-12)
[2018-09-13 05:35] LABS: Platelet Count 53 T/CUMM (130-400)
[2018-09-13 05:39] LABS: Calcium 7.6 MG/DL (8.5-10.1); Osmolality,Calculated 298.8 MOS/KG (273-304); Potassium 4.4 MMOL/L (3.5-5.1)
[2018-09-13] MEDS: METOCLOPRAMIDE 5 MG TABLET PO SCH ×3 (08:11→16:13)
[2018-09-13] MEDS: PANTOPRAZOLE 40 MG TABLET PO SCH (08:12)
[2018-09-13] MEDS: GABAPENTIN 100 MG CAPSULE PO SCH ×3 (08:12→21:52)
[2018-09-13] MEDS: ASPIRIN EC 81 MG TABLET PO SCH (08:12)
[2018-09-13] MEDS: ASCORBIC ACID 500 MG TABLET PO SCH (08:12)
[2018-09-13] MEDS: SEVELAMER CARBONATE 800 MG TABLET PO SCH ×3 (08:13→16:13)
[2018-09-13] MEDS: MIDODRINE 5 MG TABLET PO SCH ×3 (08:13→21:52)
[2018-09-13] MEDS: INSULIN LISPRO 100 UNIT/ML SUBCUT SCH ×4 (08:39→21:52)
[2018-09-13] MEDS ORDERED: ALBUMIN 25% 25 GM in PREMIX 1 EACH IV PRN (11:05)
[2018-09-13] MEDS: ACETAMINOPHEN 325 MG TABLET PO PRN (21:57)
[2018-09-14] MEDS: MIDODRINE 5 MG TABLET PO SCH (09:29)
[2018-09-14] MEDS: GABAPENTIN 100 MG CAPSULE PO SCH (09:29)
[2018-09-14] MEDS: ASPIRIN EC 81 MG TABLET PO SCH (09:29)
[2018-09-14] MEDS: INSULIN LISPRO 100 UNIT/ML SUBCUT SCH ×2 (09:29→12:00)
[2018-09-14] MEDS: ASCORBIC ACID 500 MG TABLET PO SCH (09:29)
[2018-09-14] MEDS: SEVELAMER CARBONATE 800 MG TABLET PO SCH ×2 (09:29→12:00)
[2018-09-14] MEDS: METOCLOPRAMIDE 5 MG TABLET PO SCH ×2 (09:29→12:00)
[2018-09-14] MEDS: PANTOPRAZOLE 40 MG TABLET PO SCH (09:29)
[2018-09-14 12:10] VITALS: BP 92/51
== END 2018-09-14 15:12 | disposition home or self-care (01) ==
LOC: EDUNIT# → EDBD → N.EDINP 09:51 → N.ED 09:51 → N.2W 13:45 → N.3E 16:05
PROVIDERS: ADMIT Internal Medicine; ATTEND Internal Medicine

== ENCOUNTER 2018-09-22 10:39 | Inpatient (IN) ==
[2018-09-22] MEDS ORDERED: SODIUM CHLORIDE 0.9% 500 ML IV STA (10:59)
[2018-09-22] MEDS ORDERED: CEFEPIME 1,000 MG in SODIUM CHLORIDE 0.9% 100 ML IV STA (10:59)
[2018-09-22] MEDS ORDERED: VANCOMYCIN INJ 1,250 MG in SODIUM CHLORIDE 0.9% 250 ML IV STA (10:59)
[2018-09-22] MEDS ORDERED: VANCOMYCIN 1,000 MG VIAL ONE (11:56)
[2018-09-22 12:29] LABS: Basophils % 0.2 % (0.0-0.8); Eosinophils # 0.1 10*3/uL (0.0-0.87); Eosinophils % 0.8 % (0.00-10.9); Hematocrit 33.2 VOL% (35.7-47.0); Hemoglobin 10.1 GM/DL (12.0-16.0); Lymphocytes # 1.7 10*3/uL (1.4-4.0); Lymphocytes % 17.1 % (21.3-54.2); Mean Corpuscular HGB Conc 30.4 GM/DL (32-36); Mean Corpuscular Hemoglobin 30 PG (27-34); Mean Corpuscular Volume 97.1 FL (87-102); Mean Platelet Volume 9.4 FL (9.6-12.0); Monocytes # 0.7 10*3/uL (0.11-0.8); Monocytes % 7.2 % (1.7-12.7); Neutrophils # 7.3 10*3/uL (1.4-7.4); Neutrophils % 73.7 % (38.7-73.9); Red Blood Count 3.42 MC/CUMM (3.8-5.5); Red Cell Distribution Width 20.2 % (9.3-17.3); White Blood Count 9.9 T/CUMM (4-12)
[2018-09-22 12:32] LABS: Platelet Count 71 T/CUMM (130-400)
[2018-09-22] MEDS ORDERED: HYDROmorphone 2 MG/1 ML VIAL IV STA (12:47)
[2018-09-22 12:55] LABS: Hypochromasia 1+
[2018-09-22 12:56] LABS: Macrocytosis 1+; Ovalocytes Slight
[2018-09-22 12:57] LABS: Platelet Estimate Decreased
[2018-09-22 13:08] LABS: Alanine Aminotransferase 32 U/L (13-56); Albumin 1.9 G/DL (3.4-5.0); Alkaline Phosphatase 248 U/L (45-117); Aspartate Amino Transferase 36 U/L (0-37); Bilirubin,Total 1.04 MG/DL (0.2-1.0); Blood Urea Nitrogen 26 MG/DL (7-18); Calcium 7.3 MG/DL (8.5-10.1); Glucose 192 MG/DL (74-106); Osmolality,Calculated 284.7 MOS/KG (273-304); Potassium 3.5 MMOL/L (3.5-5.1); Sodium 138 MMOL/L (136-145); Total Protein 5.9 G/DL (6.4-8.3)
[2018-09-22] MEDS ORDERED: SODIUM CHLORIDE 0.9% 500 ML IV ONE (13:40)
[2018-09-22 13:46] LABS: Sedimentation Rate-Westergren 55 MM/HR (0-30)
[2018-09-22] MEDS ORDERED: ONDANSETRON 4 MG/2 ML VIAL IV PRN (14:23)
[2018-09-22] MEDS ORDERED: MORPHINE 4 MG/1 ML VIAL IV PRN (14:23)
[2018-09-22] MEDS ORDERED: DEXTROSE 50% 25 GM/50 ML VIAL IV PRN (14:23)
[2018-09-22] MEDS ORDERED: GLUCAGON 1 MG VIAL IM PRN (14:23)
[2018-09-22] MEDS ORDERED: HYDROCORTISONE 2.5% RECTAL CREAM 30 GM TUBE TOP PRN (14:25)
[2018-09-22] MEDS ORDERED: CALCIUM CARBONATE CHEW 500 MG TABLET PO PRN (14:25)
[2018-09-22] MEDS ORDERED: ALBUMIN 25% 25 GM/100 ML VIAL IV PRN (14:25)
[2018-09-22] MEDS ORDERED: WITCH HAZEL PADS 100/JAR TOP PRN (14:25)
[2018-09-22] MEDS ORDERED: SODIUM CHLORIDE 0.9% 1,000 ML IV SCH (14:30)
[2018-09-22] MEDS ORDERED: LIDOCAINE/PRILOCAINE CREAM 5 GM TUBE TOP SCH (14:30)
[2018-09-22] MEDS ORDERED: ALBUMIN 25% 25 GM in PREMIX 1 EACH IV PRN (15:29)
[2018-09-22 17:50] LABS: Lactic Acid 2.2 MMOL/L (0.4-2.0)
[2018-09-22] MEDS: PIPERACILLIN/TAZOBACTAM 3,375 MG in SODIUM CHLORIDE 0.9% 100 ML IV SCH (18:43)
[2018-09-22] MEDS: MIDODRINE 5 MG TABLET PO SCH ×2 (18:43→21:23)
[2018-09-22] MEDS: SEVELAMER CARBONATE 800 MG TABLET PO SCH (18:43)
[2018-09-22] MEDS: GABAPENTIN 100 MG CAPSULE PO SCH ×2 (18:44→21:23)
[2018-09-22] MEDS: METOCLOPRAMIDE 5 MG TABLET PO SCH (18:44)
[2018-09-22] MEDS: INSULIN REGULAR 100 UNIT/ML SUBCUT SCH ×2 (18:44→21:23)
[2018-09-22] MEDS: INSULIN LISPRO 100 UNIT/ML SUBCUT SCH (18:54)
[2018-09-22] MEDS ORDERED: METHYLCELLULOSE 1000 MG PO SCH (21:00)
[2018-09-22] MEDS: PANTOPRAZOLE 40 MG TABLET PO SCH (21:23)
[2018-09-22] MEDS: ENOXAPARIN 30 MG/0.3 ML SYRINGE SUBCUT SCH (21:23)
[2018-09-23] MEDS: PIPERACILLIN/TAZOBACTAM 3,375 MG in SODIUM CHLORIDE 0.9% 100 ML IV SCH ×2 (04:05→15:36)
[2018-09-23 06:02] LABS: Calcium 7.4 MG/DL (8.5-10.1); Osmolality,Calculated 288.3 MOS/KG (273-304)
[2018-09-23 06:51] LABS: Basophils % 0.3 % (0.0-0.8); Eosinophils # 0.2 10*3/uL (0.0-0.87); Eosinophils % 1.7 % (0.00-10.9); Hematocrit 30.6 VOL% (35.7-47.0); Hemoglobin 9.2 GM/DL (12.0-16.0); Immature Granulocytes % 0.8 %; Immature Granulocytes Absolute 0.09 #; Lymphocytes % 18.8 % (21.3-54.2); Mean Corpuscular HGB Conc 30.1 GM/DL (32-36); Mean Corpuscular Hemoglobin 30 PG (27-34); Mean Corpuscular Volume 98.1 FL (87-102); Monocytes # 0.9 10*3/uL (0.11-0.8); Monocytes % 7.9 % (1.7-12.7); Neutrophils # 7.6 10*3/uL (1.4-7.4); Neutrophils % 70.5 % (38.7-73.9); Red Blood Count 3.12 MC/CUMM (3.8-5.5); Red Cell Distribution Width 20.1 % (9.3-17.3); White Blood Count 10.8 T/CUMM (4-12)
[2018-09-23 06:55] LABS: Platelet Count 76 T/CUMM (130-400)
[2018-09-23 07:10] LABS: Platelet Estimate Decreased
[2018-09-23 07:11] LABS: Anisocytosis 2+
[2018-09-23] MEDS: INSULIN REGULAR 100 UNIT/ML SUBCUT SCH ×4 (09:09→23:08)
[2018-09-23] MEDS: SEVELAMER CARBONATE 800 MG TABLET PO SCH ×3 (09:40→16:09)
[2018-09-23] MEDS: INSULIN LISPRO 100 UNIT/ML SUBCUT SCH ×2 (09:40→16:09)
[2018-09-23] MEDS: MIDODRINE 5 MG TABLET PO SCH ×3 (09:41→23:08)
[2018-09-23] MEDS: PANTOPRAZOLE 40 MG TABLET PO SCH ×2 (09:41→23:09)
[2018-09-23] MEDS: VITAMIN E 400 UNIT CAPSULE PO SCH (09:41)
[2018-09-23] MEDS: ASCORBIC ACID 500 MG TABLET PO SCH (09:41)
[2018-09-23] MEDS: MULTIVITAMIN (BEROCCA) TABLET PO SCH (09:41)
[2018-09-23] MEDS: ASPIRIN EC 81 MG TABLET PO SCH (09:41)
[2018-09-23] MEDS: GABAPENTIN 100 MG CAPSULE PO SCH ×3 (09:41→23:09)
[2018-09-23] MEDS: METOCLOPRAMIDE 5 MG TABLET PO SCH ×3 (09:41→16:09)
[2018-09-23] MEDS: ALBUMIN 25% 12.5 GM in PREMIX 1 EACH IV SCH ×2 (12:48→23:09)
[2018-09-23] MEDS: ENOXAPARIN 30 MG/0.3 ML SYRINGE SUBCUT SCH (23:08)
[2018-09-24] MEDS: ALBUMIN 25% 12.5 GM in PREMIX 1 EACH IV SCH (04:17)
[2018-09-24] MEDS: PIPERACILLIN/TAZOBACTAM 3,375 MG in SODIUM CHLORIDE 0.9% 100 ML IV SCH ×2 (04:45→16:39)
[2018-09-24] MEDS: INSULIN LISPRO 100 UNIT/ML SUBCUT SCH ×2 (08:45→17:29)
[2018-09-24] MEDS: INSULIN REGULAR 100 UNIT/ML SUBCUT SCH ×4 (08:46→21:24)
[2018-09-24] MEDS: MIDODRINE 5 MG TABLET PO SCH ×3 (09:57→21:24)
[2018-09-24] MEDS: ASCORBIC ACID 500 MG TABLET PO SCH (09:57)
[2018-09-24] MEDS: MULTIVITAMIN (BEROCCA) TABLET PO SCH (09:57)
[2018-09-24] MEDS: VITAMIN E 400 UNIT CAPSULE PO SCH (09:57)
[2018-09-24] MEDS: GABAPENTIN 100 MG CAPSULE PO SCH ×3 (09:57→21:24)
[2018-09-24] MEDS: PANTOPRAZOLE 40 MG TABLET PO SCH ×2 (09:57→21:24)
[2018-09-24] MEDS: METOCLOPRAMIDE 5 MG TABLET PO SCH ×3 (09:57→16:38)
[2018-09-24] MEDS: ASPIRIN EC 81 MG TABLET PO SCH (09:57)
[2018-09-24] MEDS: SEVELAMER CARBONATE 800 MG TABLET PO SCH ×3 (11:54→16:38)
[2018-09-24] MEDS ORDERED: SODIUM CHLORIDE 0.9% 250 ML IV ONE (17:30)
[2018-09-24] MEDS ORDERED: NALOXONE 0.4 MG/ML VIAL IV ONE (17:46)
[2018-09-24] MEDS ORDERED: VANCOMYCIN INJ 1,750 MG in SODIUM CHLORIDE 0.9% 500 ML IV ONE (18:00)
[2018-09-24] MEDS: ENOXAPARIN 30 MG/0.3 ML SYRINGE SUBCUT SCH (21:24)
[2018-09-25] MEDS: PIPERACILLIN/TAZOBACTAM 3,375 MG in SODIUM CHLORIDE 0.9% 100 ML IV SCH (04:48)
[2018-09-25] MEDS: INSULIN LISPRO 100 UNIT/ML SUBCUT SCH ×6 (07:40→21:59)
[2018-09-25] MEDS: MIDODRINE 5 MG TABLET PO SCH ×3 (09:53→21:51)
[2018-09-25] MEDS: MULTIVITAMIN (BEROCCA) TABLET PO SCH (09:53)
[2018-09-25] MEDS: METOCLOPRAMIDE 5 MG TABLET PO SCH ×3 (09:53→16:18)
[2018-09-25] MEDS: VITAMIN E 400 UNIT CAPSULE PO SCH (09:53)
[2018-09-25] MEDS: ASCORBIC ACID 500 MG TABLET PO SCH (09:53)
[2018-09-25] MEDS: PANTOPRAZOLE 40 MG TABLET PO SCH ×2 (09:54→21:51)
[2018-09-25] MEDS: SEVELAMER CARBONATE 800 MG TABLET PO SCH ×3 (09:54→16:18)
[2018-09-25] MEDS: ASPIRIN EC 81 MG TABLET PO SCH (09:54)
[2018-09-25] MEDS: GABAPENTIN 100 MG CAPSULE PO SCH ×3 (09:54→21:51)
[2018-09-25] MEDS: ACETAMINOPHEN 325 MG TABLET PO PRN (09:54)
[2018-09-25 11:25] LABS: Hepatitis A Ab IgM Quant 0.14 Index; Hepatitis A Ab IgM Result Negative (Negative); Hepatitis B Core IgM Quant 0.07 Index; Hepatitis B Core IgM Result Negative (Negative); Hepatitis B Surface Ag Quant < 0.10 Index; Hepatitis B Surface Ag Result Negative (Negative); Hepatitis C Virus Ab Quant 0.17 Index; Hepatitis C Virus Ab Result Negative (Negative)
[2018-09-25] MEDS ORDERED: VANCOMYCIN INJ 750 MG in SODIUM CHLORIDE 0.9% 250 ML IV PRN (12:00)
[2018-09-25] MEDS: COLLAGENASE OINT 30 GM TUBE TOP SCH (17:13)
[2018-09-25] MEDS: ENOXAPARIN 30 MG/0.3 ML SYRINGE SUBCUT SCH (21:52)
[2018-09-26] MEDS: PRAMOXINE 1% RECTAL FOAM 15 GM CAN TOP PRN ×3 (01:47→21:55)
[2018-09-26] MEDS: INSULIN LISPRO 100 UNIT/ML SUBCUT SCH ×6 (07:23→21:54)
[2018-09-26] MEDS: SEVELAMER CARBONATE 800 MG TABLET PO SCH ×3 (08:28→17:03)
[2018-09-26] MEDS: MULTIVITAMIN (BEROCCA) TABLET PO SCH (08:29)
[2018-09-26] MEDS: MIDODRINE 5 MG TABLET PO SCH ×4 (08:29→21:53)
[2018-09-26] MEDS: ASCORBIC ACID 500 MG TABLET PO SCH (08:29)
[2018-09-26] MEDS: PANTOPRAZOLE 40 MG TABLET PO SCH ×2 (08:29→21:53)
[2018-09-26] MEDS: ASPIRIN EC 81 MG TABLET PO SCH (08:29)
[2018-09-26] MEDS: GABAPENTIN 100 MG CAPSULE PO SCH ×3 (08:29→21:53)
[2018-09-26] MEDS: VITAMIN E 400 UNIT CAPSULE PO SCH (08:29)
[2018-09-26] MEDS: METOCLOPRAMIDE 5 MG TABLET PO SCH ×3 (08:29→16:19)
[2018-09-26] MEDS ORDERED: ALBUMIN 25% 12.5 GM/50 ML VIAL IV ONE ×2 (10:03→10:53)
[2018-09-26] MEDS: ALBUMIN 25% 12.5 GM in PREMIX 1 EACH IV PRN ×2 (10:10→10:52)
[2018-09-26] MEDS: ACETAMINOPHEN 325 MG TABLET PO PRN (11:54)
[2018-09-26] MEDS: COLLAGENASE OINT 30 GM TUBE TOP SCH (13:17)
[2018-09-26] MEDS ORDERED: ASPIRIN CHEW 81 MG TABLET PO ONE ×2 (13:28→14:00)
[2018-09-26] MEDS ORDERED: SODIUM CHLORIDE 0.9% 500 ML IV ONE (13:30)
[2018-09-26] MEDS ORDERED: ALBUMIN 25% 25 GM in PREMIX 1 EACH IV ONE (13:30)
[2018-09-26] MEDS: ENOXAPARIN 30 MG/0.3 ML SYRINGE SUBCUT SCH (21:53)
[2018-09-27] MEDS: ACETAMINOPHEN 325 MG TABLET PO PRN ×2 (00:39→04:48)
[2018-09-27] MEDS: ASCORBIC ACID 500 MG TABLET PO SCH (09:20)
[2018-09-27] MEDS: MIDODRINE 5 MG TABLET PO SCH ×3 (09:20→20:56)
[2018-09-27] MEDS: METOCLOPRAMIDE 5 MG TABLET PO SCH ×3 (09:20→17:37)
[2018-09-27] MEDS: SEVELAMER CARBONATE 800 MG TABLET PO SCH ×3 (09:20→17:38)
[2018-09-27] MEDS: ASPIRIN EC 81 MG TABLET PO SCH (09:21)
[2018-09-27] MEDS: PANTOPRAZOLE 40 MG TABLET PO SCH ×2 (09:21→20:56)
[2018-09-27] MEDS: GABAPENTIN 100 MG CAPSULE PO SCH ×3 (09:21→20:56)
[2018-09-27] MEDS: MULTIVITAMIN (BEROCCA) TABLET PO SCH (09:21)
[2018-09-27] MEDS: INSULIN LISPRO 100 UNIT/ML SUBCUT SCH ×6 (09:22→20:58)
[2018-09-27] MEDS: LIDOCAINE 5% PATCH TRANSDERM SCH (09:23)
[2018-09-27] MEDS: VITAMIN E 400 UNIT CAPSULE PO SCH (15:55)
[2018-09-27] MEDS: COLLAGENASE OINT 30 GM TUBE TOP SCH (15:55)
[2018-09-27] MEDS: ENOXAPARIN 30 MG/0.3 ML SYRINGE SUBCUT SCH (20:57)
[2018-09-28] MEDS: LIDOCAINE 5% PATCH TRANSDERM SCH (08:04)
[2018-09-28] MEDS: ASCORBIC ACID 500 MG TABLET PO SCH (08:07)
[2018-09-28] MEDS: VITAMIN E 400 UNIT CAPSULE PO SCH (08:07)
[2018-09-28] MEDS: SEVELAMER CARBONATE 800 MG TABLET PO SCH ×3 (08:07→17:13)
[2018-09-28] MEDS: ASPIRIN EC 81 MG TABLET PO SCH (08:07)
[2018-09-28] MEDS: METOCLOPRAMIDE 5 MG TABLET PO SCH ×3 (08:07→17:13)
[2018-09-28] MEDS: MIDODRINE 5 MG TABLET PO SCH ×3 (08:07→21:05)
[2018-09-28] MEDS: GABAPENTIN 100 MG CAPSULE PO SCH ×3 (08:07→21:06)
[2018-09-28] MEDS: MULTIVITAMIN (BEROCCA) TABLET PO SCH (08:08)
[2018-09-28] MEDS: PANTOPRAZOLE 40 MG TABLET PO SCH ×2 (08:08→21:06)
[2018-09-28] MEDS ORDERED: GENTAMICIN INJ 80 MG in PREMIX 1 EACH IV ONE (09:00)
[2018-09-28] MEDS ORDERED: LINEZOLID 600 MG TABLET PO SCH (09:00)
[2018-09-28] MEDS: INSULIN LISPRO 100 UNIT/ML SUBCUT SCH ×6 (10:09→21:06)
[2018-09-28] MEDS: COLLAGENASE OINT 30 GM TUBE TOP SCH (10:26)
[2018-09-28] MEDS: ACETAMINOPHEN 325 MG TABLET PO PRN ×2 (10:55→17:18)
[2018-09-28] MEDS: ENOXAPARIN 30 MG/0.3 ML SYRINGE SUBCUT SCH (21:06)
[2018-09-29] MEDS: LIDOCAINE 5% PATCH TRANSDERM SCH (09:11)
[2018-09-29] MEDS: INSULIN LISPRO 100 UNIT/ML SUBCUT SCH ×6 (09:12→21:09)
[2018-09-29] MEDS: SEVELAMER CARBONATE 800 MG TABLET PO SCH ×3 (09:12→17:27)
[2018-09-29] MEDS: PANTOPRAZOLE 40 MG TABLET PO SCH ×2 (09:12→20:25)
[2018-09-29] MEDS: METOCLOPRAMIDE 5 MG TABLET PO SCH ×3 (09:13→17:27)
[2018-09-29] MEDS: GABAPENTIN 100 MG CAPSULE PO SCH ×3 (09:13→20:25)
[2018-09-29] MEDS: MIDODRINE 5 MG TABLET PO SCH ×3 (09:13→20:25)
[2018-09-29] MEDS: MULTIVITAMIN (BEROCCA) TABLET PO SCH (09:13)
[2018-09-29] MEDS: VITAMIN E 400 UNIT CAPSULE PO SCH (09:13)
[2018-09-29] MEDS: ASCORBIC ACID 500 MG TABLET PO SCH (09:14)
[2018-09-29] MEDS: ACETAMINOPHEN 325 MG TABLET PO PRN ×2 (09:20→17:36)
[2018-09-29] MEDS: ASPIRIN EC 81 MG TABLET PO SCH (09:29)
[2018-09-29] MEDS: COLLAGENASE OINT 30 GM TUBE TOP SCH (09:30)
[2018-09-29] MEDS: ENOXAPARIN 30 MG/0.3 ML SYRINGE SUBCUT SCH (20:26)
[2018-09-30] MEDS: INSULIN LISPRO 100 UNIT/ML SUBCUT SCH ×6 (07:32→20:59)
[2018-09-30] MEDS: MIDODRINE 5 MG TABLET PO SCH ×4 (07:50→21:05)
[2018-09-30] MEDS: MULTIVITAMIN (BEROCCA) TABLET PO SCH ×2 (07:50→08:34)
[2018-09-30] MEDS: VITAMIN E 400 UNIT CAPSULE PO SCH ×2 (07:50→08:35)
[2018-09-30] MEDS: SEVELAMER CARBONATE 800 MG TABLET PO SCH ×3 (07:50→16:41)
[2018-09-30] MEDS: METOCLOPRAMIDE 5 MG TABLET PO SCH ×3 (07:50→16:40)
[2018-09-30] MEDS: ASCORBIC ACID 500 MG TABLET PO SCH ×2 (07:51→08:35)
[2018-09-30] MEDS: LIDOCAINE 5% PATCH TRANSDERM SCH ×2 (07:51→08:34)
[2018-09-30] MEDS: ASPIRIN EC 81 MG TABLET PO SCH ×2 (07:51→08:34)
[2018-09-30] MEDS: PANTOPRAZOLE 40 MG TABLET PO SCH ×3 (07:51→21:05)
[2018-09-30] MEDS: GABAPENTIN 100 MG CAPSULE PO SCH ×4 (07:51→21:05)
[2018-09-30] MEDS: COLLAGENASE OINT 30 GM TUBE TOP SCH ×2 (07:52→08:35)
[2018-09-30] MEDS: ACETAMINOPHEN 325 MG TABLET PO PRN (10:39)
[2018-09-30] MEDS ORDERED: SODIUM CHLORIDE 0.9% IV PRN (12:00)
[2018-09-30] MEDS ORDERED: GENTAMICIN IV PRN (12:00)
[2018-09-30] MEDS ORDERED: TUBERCULIN SKIN TEST 0.1 ML SYRINGE INTRADERM ONE (15:30)
[2018-09-30] MEDS: ENOXAPARIN 30 MG/0.3 ML SYRINGE SUBCUT SCH (21:04)
[2018-10-01] MEDS: ACETAMINOPHEN 325 MG TABLET PO PRN (02:12)
[2018-10-01] MEDS: PRAMOXINE 1% RECTAL FOAM 15 GM CAN TOP PRN (02:54)
[2018-10-01] MEDS: INSULIN LISPRO 100 UNIT/ML SUBCUT SCH ×2 (07:15)
[2018-10-01 07:51] VITALS: BP 87/47
[2018-10-01] MEDS: PANTOPRAZOLE 40 MG TABLET PO SCH (08:26)
[2018-10-01] MEDS: ASPIRIN EC 81 MG TABLET PO SCH (08:26)
[2018-10-01] MEDS: VITAMIN E 400 UNIT CAPSULE PO SCH (08:26)
[2018-10-01] MEDS: METOCLOPRAMIDE 5 MG TABLET PO SCH (08:26)
[2018-10-01] MEDS: MULTIVITAMIN (BEROCCA) TABLET PO SCH (08:26)
[2018-10-01] MEDS: SEVELAMER CARBONATE 800 MG TABLET PO SCH (08:26)
[2018-10-01] MEDS: MIDODRINE 5 MG TABLET PO SCH (08:26)
[2018-10-01] MEDS: GABAPENTIN 100 MG CAPSULE PO SCH (08:27)
[2018-10-01] MEDS: ASCORBIC ACID 500 MG TABLET PO SCH (08:27)
[2018-10-01] MEDS: COLLAGENASE OINT 30 GM TUBE TOP SCH (08:27)
[2018-10-01] MEDS: LIDOCAINE 5% PATCH TRANSDERM SCH (08:27)
== END 2018-10-01 09:44 | DRG 299 ==
LOC: EDUNIT# → N.ED 10:39 → N.EDINP 10:39 → SUATTDRO 14:23 → N.2E 15:12
PROVIDERS: ADMIT Hospitalist; ATTEND Internal Medicine

== ENCOUNTER 2018-10-12 09:19 | Inpatient (IN) ==
[2018-10-12 10:02] LABS: Basophils # 0.1 10*3/uL (0.0-0.2); Basophils % 0.4 % (0.0-0.8); Eosinophils # 0.1 10*3/uL (0.0-0.87); Hematocrit 32.8 VOL% (35.7-47.0); Hemoglobin 9.9 GM/DL (12.0-16.0); Immature Granulocytes % 1.1 %; Immature Granulocytes Absolute 0.14 #; Lymphocytes # 1.7 10*3/uL (1.4-4.0); Lymphocytes % 13.4 % (21.3-54.2); Mean Corpuscular HGB Conc 30.2 GM/DL (32-36); Mean Corpuscular Hemoglobin 29 PG (27-34); Mean Corpuscular Volume 97.3 FL (87-102); Mean Platelet Volume 9.6 FL (9.6-12.0); Monocytes # 1.3 10*3/uL (0.11-0.8); Neutrophils # 9.3 10*3/uL (1.4-7.4); Neutrophils % 74.1 % (38.7-73.9); Platelet Count 107 T/CUMM (130-400); Red Blood Count 3.37 MC/CUMM (3.8-5.5); Red Cell Distribution Width 18.3 % (9.3-17.3); White Blood Count 12.5 T/CUMM (4-12)
[2018-10-12 10:20] LABS: Albumin 1.5 G/DL (3.4-5.0); Bilirubin,Total 0.9 MG/DL (0.2-1.0); Calcium 7.8 MG/DL (8.5-10.1); Osmolality,Calculated 288.7 MOS/KG (273-304); Potassium 3.4 MMOL/L (3.5-5.1); Thyroid Stimulating Hormone 3.88 uIU/ml (0.358-3.74); Total Protein 6.2 G/DL (6.4-8.3)
[2018-10-12 11:35] LABS: Platelet Estimate Adequate
[2018-10-12 11:36] LABS: Anisocytosis Slight; Macrocytosis Slight
[2018-10-12] MEDS ORDERED: DEXTROSE 50% 25 GM/50 ML VIAL IV PRN (12:30)
[2018-10-12] MEDS ORDERED: ONDANSETRON 4 MG/2 ML VIAL IV PRN (12:30)
[2018-10-12] MEDS ORDERED: GLUCAGON 1 MG VIAL IM PRN (12:30)
[2018-10-12] MEDS: INSULIN LISPRO 100 UNIT/ML SUBCUT SCH ×2 (18:26→22:40)
[2018-10-13 05:17] LABS: Basophils % 0.5 % (0.0-0.8); Eosinophils # 0.1 10*3/uL (0.0-0.87); Eosinophils % 0.8 % (0.00-10.9); Hematocrit 30.8 VOL% (35.7-47.0); Hemoglobin 9.3 GM/DL (12.0-16.0); Immature Granulocytes % 0.9 %; Immature Granulocytes Absolute 0.08 #; Lymphocytes # 1.6 10*3/uL (1.4-4.0); Lymphocytes % 18.5 % (21.3-54.2); Mean Corpuscular HGB Conc 30.2 GM/DL (32-36); Mean Corpuscular Hemoglobin 30 PG (27-34); Mean Corpuscular Volume 98.1 FL (87-102); Mean Platelet Volume 9.5 FL (9.6-12.0); Monocytes # 0.9 10*3/uL (0.11-0.8); Monocytes % 9.8 % (1.7-12.7); Neutrophils # 6.1 10*3/uL (1.4-7.4); Neutrophils % 69.5 % (38.7-73.9); Platelet Count 70 T/CUMM (130-400); Red Blood Count 3.14 MC/CUMM (3.8-5.5); Red Cell Distribution Width 18.3 % (9.3-17.3); White Blood Count 8.7 T/CUMM (4-12)
[2018-10-13 05:36] LABS: Albumin 1.5 G/DL (3.4-5.0); Bilirubin,Total 1.2 MG/DL (0.2-1.0); Calcium 7.8 MG/DL (8.5-10.1); Osmolality,Calculated 280.8 MOS/KG (273-304); Potassium 3.4 MMOL/L (3.5-5.1); Total Protein 5.6 G/DL (6.4-8.3)
[2018-10-13 06:43] LABS: Band Neutrophils 3 % (0-10); Lymphocytes 20 % (20-55); Segmented Neutrophils 75 % (50-85); Total Cells Counted 100
[2018-10-13 06:44] LABS: Anisocytosis 1+; Hypochromasia Slight; Platelet Estimate Decreased
[2018-10-13] MEDS ORDERED: PANTOPRAZOLE 40 MG TABLET PO SCH (09:00)
[2018-10-13] MEDS: INSULIN LISPRO 100 UNIT/ML SUBCUT SCH ×4 (10:07→21:27)
[2018-10-13] MEDS: ACETAMINOPHEN 500 MG TABLET PO PRN ×2 (10:19→16:37)
[2018-10-13] MEDS ORDERED: CALCIUM CARBONATE CHEW 500 MG TABLET PO PRN (11:59)
[2018-10-13] MEDS ORDERED: HYDROCORTISONE 2.5% RECTAL CREAM 30 GM TUBE TOP PRN (11:59)
[2018-10-13] MEDS ORDERED: LOPERAMIDE 2 MG CAPSULE PO PRN (11:59)
[2018-10-13] MEDS ORDERED: PRAMOXINE 1% RECTAL FOAM 15 GM CAN TOP PRN (11:59)
[2018-10-13] MEDS ORDERED: LIDOCAINE/PRILOCAINE CREAM 5 GM TUBE TOP SCH (12:00)
[2018-10-13] MEDS: PANTOPRAZOLE 40 MG TABLET PO SCH ×2 (12:58→20:38)
[2018-10-13] MEDS: LIDOCAINE 5% PATCH TRANSDERM SCH (13:09)
[2018-10-13] MEDS: ASPIRIN EC 81 MG TABLET PO SCH (13:09)
[2018-10-13] MEDS: SEVELAMER CARBONATE 800 MG TABLET PO SCH ×2 (13:09→16:37)
[2018-10-13] MEDS ORDERED: ePHEDrine 50 MG/ML AMP IV PRN (15:48)
[2018-10-13] MEDS: METOCLOPRAMIDE 5 MG TABLET PO SCH (16:37)
[2018-10-14] MEDS: INSULIN LISPRO 100 UNIT/ML SUBCUT SCH ×4 (07:42→21:52)
[2018-10-14] MEDS: MIDODRINE 5 MG TABLET PO SCH ×5 (08:08→21:52)
[2018-10-14] MEDS: METOCLOPRAMIDE 5 MG TABLET PO SCH ×3 (13:19→18:04)
[2018-10-14] MEDS: ASCORBIC ACID 500 MG TABLET PO SCH (13:19)
[2018-10-14] MEDS: PANTOPRAZOLE 40 MG TABLET PO SCH ×2 (13:20→23:13)
[2018-10-14] MEDS: ASPIRIN EC 81 MG TABLET PO SCH (13:20)
[2018-10-14] MEDS: SEVELAMER CARBONATE 800 MG TABLET PO SCH ×3 (13:20→18:06)
[2018-10-14] MEDS: LIDOCAINE 5% PATCH TRANSDERM SCH (13:20)
[2018-10-14] MEDS: COLLAGENASE OINT 30 GM TUBE TOP SCH (14:30)
[2018-10-14] MEDS: SODIUM HYPOCHLORITE 0.25% IRRIG 473 ML BOTTLE TOP SCH (18:05)
[2018-10-15] MEDS: INSULIN LISPRO 100 UNIT/ML SUBCUT SCH ×4 (07:30→23:48)
[2018-10-15] MEDS ORDERED: GLUCAGON 1 MG VIAL IM PRN (07:42)
[2018-10-15] MEDS ORDERED: DEXTROSE 50% 25 GM/50 ML VIAL IV PRN (07:42)
[2018-10-15] MEDS: ASCORBIC ACID 500 MG TABLET PO SCH (09:51)
[2018-10-15] MEDS: PANTOPRAZOLE 40 MG TABLET PO SCH ×2 (09:52→21:48)
[2018-10-15] MEDS: METOCLOPRAMIDE 5 MG TABLET PO SCH ×3 (09:52→17:28)
[2018-10-15] MEDS: ASPIRIN EC 81 MG TABLET PO SCH (09:52)
[2018-10-15] MEDS: SODIUM HYPOCHLORITE 0.25% IRRIG 473 ML BOTTLE TOP SCH (09:52)
[2018-10-15] MEDS: SEVELAMER CARBONATE 800 MG TABLET PO SCH ×3 (09:52→17:00)
[2018-10-15] MEDS: COLLAGENASE OINT 30 GM TUBE TOP SCH (09:52)
[2018-10-15] MEDS: LIDOCAINE 5% PATCH TRANSDERM SCH (12:28)
[2018-10-15] MEDS: MIDODRINE 5 MG TABLET PO SCH ×5 (12:28→21:48)
[2018-10-15] MEDS: ACETAMINOPHEN 500 MG TABLET PO PRN (21:47)
[2018-10-16] MEDS: ACETAMINOPHEN 500 MG TABLET PO PRN ×3 (06:40→17:38)
[2018-10-16] MEDS ORDERED: ALBUMIN 5% 25 GM in PREMIX 1 EACH IV ONE (08:00)
[2018-10-16] MEDS: INSULIN LISPRO 100 UNIT/ML SUBCUT SCH ×4 (08:22→21:11)
[2018-10-16] MEDS: MIDODRINE 5 MG TABLET PO SCH ×4 (08:56→21:11)
[2018-10-16] MEDS: PANTOPRAZOLE 40 MG TABLET PO SCH ×2 (08:56→21:11)
[2018-10-16] MEDS: METOCLOPRAMIDE 5 MG TABLET PO SCH ×3 (08:56→17:28)
[2018-10-16] MEDS: ASPIRIN EC 81 MG TABLET PO SCH (08:56)
[2018-10-16] MEDS: SODIUM HYPOCHLORITE 0.25% IRRIG 473 ML BOTTLE TOP SCH (08:56)
[2018-10-16] MEDS: SEVELAMER CARBONATE 800 MG TABLET PO SCH ×3 (08:56→17:27)
[2018-10-16] MEDS: LIDOCAINE 5% PATCH TRANSDERM SCH (08:57)
[2018-10-16] MEDS: ASCORBIC ACID 500 MG TABLET PO SCH (08:57)
[2018-10-16] MEDS ORDERED: ALBUMIN 25% 12.5 GM/50 ML VIAL IV ONE (09:43)
[2018-10-16] MEDS ORDERED: ALBUMIN 25% 12.5 GM in PREMIX 1 EACH IV ONE (09:44)
[2018-10-16] MEDS: COLLAGENASE OINT 30 GM TUBE TOP SCH (11:53)
[2018-10-16] MEDS ORDERED: ALBUMIN 25% 25 GM/100 ML VIAL IV PRN (13:03)
[2018-10-16] MEDS ORDERED: WITCH HAZEL PADS 100/JAR TOP PRN (13:03)
[2018-10-16] MEDS: PSYLLIUM POWDER 3.7 GM/PACK PO SCH ×3 (15:09→21:19)
[2018-10-17] MEDS ORDERED: VITAMIN E 400 UNIT CAPSULE PO SCH (09:00)
[2018-10-17] MEDS ORDERED: MULTIVITAMIN (BEROCCA) TABLET PO SCH (09:00)
[2018-10-17] MEDS: MIDODRINE 5 MG TABLET PO SCH ×2 (09:17→16:17)
[2018-10-17] MEDS: SEVELAMER CARBONATE 800 MG TABLET PO SCH ×3 (09:18→16:19)
[2018-10-17] MEDS: METOCLOPRAMIDE 5 MG TABLET PO SCH ×3 (09:19→16:17)
[2018-10-17] MEDS: ASPIRIN EC 81 MG TABLET PO SCH (09:19)
[2018-10-17] MEDS: PANTOPRAZOLE 40 MG TABLET PO SCH (09:20)
[2018-10-17] MEDS: LIDOCAINE 5% PATCH TRANSDERM SCH (09:20)
[2018-10-17] MEDS: ASCORBIC ACID 500 MG TABLET PO SCH (09:23)
[2018-10-17] MEDS: PSYLLIUM POWDER 3.7 GM/PACK PO SCH (09:23)
[2018-10-17] MEDS: SODIUM HYPOCHLORITE 0.25% IRRIG 473 ML BOTTLE TOP SCH (09:23)
[2018-10-17] MEDS: COLLAGENASE OINT 30 GM TUBE TOP SCH (09:23)
[2018-10-17] MEDS: INSULIN LISPRO 100 UNIT/ML SUBCUT SCH ×3 (09:23→16:18)
[2018-10-17] MEDS: ACETAMINOPHEN 500 MG TABLET PO PRN (10:03)
[2018-10-17 16:19] VITALS: BP 72/32
== END 2018-10-17 19:12 | DRG 264 ==
LOC: EDUNIT# → N.EDINP 09:19 → N.ED 09:19 → SUATTDRO 12:30 → N.EDINP 13:54 → N.5E 18:14 → SUATTDRO 10-14 12:46
PROVIDERS: ADMIT Physician Assistant; ATTEND Internal Medicine

== ENCOUNTER 2018-10-21 12:54 | Inpatient (IN) ==
[2018-10-21] MEDS: NOREPINEPHRINE 4 MG in SODIUM CHLORIDE 0.9% 246 ML IV PRN ×2 (12:54→15:37)
[2018-10-21 13:31] LABS: ABG Base Excess 0.9 MMOL/L (-2.5-2.5); ABG HCO3 25.2 MMOL/L (20-26); ABG PCO2 34.7 MM HG (35-48); ABG PH 7.454 (7.35-7.45); ABG TCO2 21.5 MMOL/L (23-27)
[2018-10-21] MEDS ORDERED: ALBUTEROL 2.5 MG/3 ML NEB RESP TX PRN (13:46)
[2018-10-21] MEDS ORDERED: DEXTROSE 50% 25 GM/50 ML SYRINGE IV PRN (13:54)
[2018-10-21] MEDS ORDERED: GLUCAGON 1 MG VIAL IM PRN (13:54)
[2018-10-21 14:02] LABS: Basophils # 0.1 10*3/uL (0.0-0.2); Basophils % 0.5 % (0.0-0.8); Eosinophils # 0.1 10*3/uL (0.0-0.87); Eosinophils % 0.4 % (0.00-10.9); Hematocrit 38.2 VOL% (35.7-47.0); Hemoglobin 11.6 GM/DL (12.0-16.0); Immature Granulocytes % 1.4 %; Immature Granulocytes Absolute 0.38 #; Lymphocytes # 2.8 10*3/uL (1.4-4.0); Lymphocytes % 10.4 % (21.3-54.2); Mean Corpuscular HGB Conc 30.4 GM/DL (32-36); Mean Corpuscular Hemoglobin 29 PG (27-34); Mean Corpuscular Volume 96.5 FL (87-102); Mean Platelet Volume 9.8 FL (9.6-12.0); Monocytes # 3.3 10*3/uL (0.11-0.8); Neutrophils # 20.5 10*3/uL (1.4-7.4); Neutrophils % 75.3 % (38.7-73.9); Platelet Count 167 T/CUMM (130-400); Red Blood Count 3.96 MC/CUMM (3.8-5.5); Red Cell Distribution Width 17.2 % (9.3-17.3); White Blood Count 27.2 T/CUMM (4-12)
[2018-10-21 14:10] LABS: PT Patient Result 11.2 SECS
[2018-10-21] MEDS: PANTOPRAZOLE 40 MG VIAL IV SCH (14:19)
[2018-10-21 14:25] LABS: Albumin 1.7 G/DL (3.4-5.0); Bilirubin,Total 1.7 MG/DL (0.2-1.0); Calcium 7.6 MG/DL (8.5-10.1); Osmolality,Calculated 275.1 MOS/KG (273-304); Potassium 3.4 MMOL/L (3.5-5.1); Total Protein 6.8 G/DL (6.4-8.3)
[2018-10-21] MEDS: PROPOFOL 1,000 MG/100 ML BOTTLE IV SCH ×2 (15:36→17:18)
[2018-10-21 15:43] LABS: Band Neutrophils 2 % (0-10); Hypochromasia 1+; Lymphocytes 8 % (20-55); Microcytosis Slight; Ovalocytes Few; Platelet Estimate Decreased; Polychromasia 1+; Segmented Neutrophils 84 % (50-85); Total Cells Counted 100
[2018-10-21] MEDS ORDERED: NOREPINEPHRINE 8 MG in SODIUM CHLORIDE 0.9% 246 ML IV PRN (16:00)
[2018-10-21] MEDS ORDERED: INFLUENZA VIRUS VACCINE 0.5 ML SYRINGE IM ONE (16:02)
[2018-10-21 16:54] LABS: ABG Base Excess -0.7 MMOL/L (-2.5-2.5); ABG HCO3 23.9 MMOL/L (20-26); ABG PCO2 33.8 MM HG (35-48); ABG PH 7.438 (7.35-7.45); ABG TCO2 20.3 MMOL/L (23-27); Allen Test Positive; Pt O2 Delivery Device Ventilator
[2018-10-21] MEDS: ENOXAPARIN 30 MG/0.3 ML SYRINGE SUBCUT SCH (17:01)
[2018-10-21] MEDS: PHENYLEPHRINE DRIP 40 MG/250 ML PREMIX IV SCH (17:30)
[2018-10-21] MEDS: INSULIN LISPRO 100 UNIT/ML SUBCUT SCH (17:59)
[2018-10-21] MEDS: PIPERACILLIN/TAZOBACTAM 2,250 MG in SODIUM CHLORIDE 0.9% 100 ML IV SCH (18:19)
[2018-10-21] MEDS ORDERED: VANCOMYCIN INJ 1,750 MG in SODIUM CHLORIDE 0.9% 500 ML IV ONE (20:00)
[2018-10-21] MEDS: NOREPINEPHRINE 16 MG in SODIUM CHLORIDE 0.9% 234 ML IV PRN (22:56)
[2018-10-22] MEDS: INSULIN LISPRO 100 UNIT/ML SUBCUT SCH ×4 (00:39→18:15)
[2018-10-22 04:03] LABS: ABG Base Excess 0.8 MMOL/L (-2.5-2.5); ABG HCO3 25.2 MMOL/L (20-26); ABG Oxygen Saturation 99.5 % (95-100); ABG PCO2 28.3 MM HG (35-48); ABG PH 7.515 (7.35-7.45); ABG TCO2 20.5 MMOL/L (23-27); Pt O2 Delivery Device Ventilator
[2018-10-22] MEDS: PROPOFOL 1,000 MG/100 ML BOTTLE IV SCH ×2 (05:01→16:55)
[2018-10-22] MEDS: PIPERACILLIN/TAZOBACTAM 2,250 MG in SODIUM CHLORIDE 0.9% 100 ML IV SCH ×2 (06:33→17:55)
[2018-10-22] MEDS: MIDODRINE 5 MG TABLET PO SCH (08:32)
[2018-10-22 08:44] LABS: Basophils # 0.1 10*3/uL (0.0-0.2); Basophils % 0.4 % (0.0-0.8); Eosinophils # 0.1 10*3/uL (0.0-0.87); Eosinophils % 0.4 % (0.00-10.9); Hematocrit 30.8 VOL% (35.7-47.0); Hemoglobin 9.7 GM/DL (12.0-16.0); Immature Granulocytes % 0.7 %; Immature Granulocytes Absolute 0.12 #; Lymphocytes # 2.2 10*3/uL (1.4-4.0); Lymphocytes % 12.7 % (21.3-54.2); Mean Corpuscular HGB Conc 31.5 GM/DL (32-36); Mean Corpuscular Hemoglobin 30 PG (27-34); Mean Corpuscular Volume 93.9 FL (87-102); Mean Platelet Volume 9.5 FL (9.6-12.0); Monocytes # 2.1 10*3/uL (0.11-0.8); Monocytes % 12.2 % (1.7-12.7); Neutrophils # 12.5 10*3/uL (1.4-7.4); Neutrophils % 73.6 % (38.7-73.9); Platelet Count 157 T/CUMM (130-400); Red Blood Count 3.28 MC/CUMM (3.8-5.5); Red Cell Distribution Width 17.3 % (9.3-17.3); White Blood Count 16.9 T/CUMM (4-12)
[2018-10-22 08:58] LABS: Calcium 7.4 MG/DL (8.5-10.1); Osmolality,Calculated 281.1 MOS/KG (273-304); Potassium 3.6 MMOL/L (3.5-5.1)
[2018-10-22] MEDS ORDERED: VANCOMYCIN INJ 750 MG in SODIUM CHLORIDE 0.9% 250 ML IV PRN (09:00)
[2018-10-22 10:53] LABS: Neutrophils,Peritoneal Fluid 32 %; RBC,Peritoneal Fluid < 1 T/CUMM
[2018-10-22] MEDS: NOREPINEPHRINE 16 MG in SODIUM CHLORIDE 0.9% 234 ML IV PRN (15:18)
[2018-10-22] MEDS: PHENYLEPHRINE DRIP 40 MG/250 ML PREMIX IV SCH (15:19)
[2018-10-22] MEDS: ENOXAPARIN 30 MG/0.3 ML SYRINGE SUBCUT SCH (15:27)
[2018-10-22] MEDS: PANTOPRAZOLE 40 MG VIAL IV SCH (15:27)
[2018-10-22] MEDS ORDERED: SKIN HEALING OINT (AQUAPHOR) 50 GM TUBE TOP PRN ×2 (15:39→16:00)
[2018-10-22] MEDS: SODIUM HYPOCHLORITE 0.25% IRRIG 473 ML BOTTLE TOP SCH (16:53)
[2018-10-23] MEDS: INSULIN LISPRO 100 UNIT/ML SUBCUT SCH ×4 (00:12→18:45)
[2018-10-23] MEDS: PROPOFOL 1,000 MG/100 ML BOTTLE IV SCH ×3 (01:00→19:48)
[2018-10-23] MEDS: NOREPINEPHRINE 16 MG in SODIUM CHLORIDE 0.9% 234 ML IV PRN ×2 (03:02→15:31)
[2018-10-23 04:40] LABS: Pt O2 Delivery Device Ventilator
[2018-10-23 04:41] LABS: ABG Base Excess 0.9 MMOL/L (-2.5-2.5); ABG HCO3 25.3 MMOL/L (20-26); ABG Oxygen Saturation 99.7 % (95-100); ABG PCO2 28.3 MM HG (35-48); ABG TCO2 20.9 MMOL/L (23-27)
[2018-10-23 05:37] LABS: Basophils # 0.1 10*3/uL (0.0-0.2); Basophils % 0.3 % (0.0-0.8); Eosinophils # 0.1 10*3/uL (0.0-0.87); Eosinophils % 0.4 % (0.00-10.9); Hematocrit 29.5 VOL% (35.7-47.0); Hemoglobin 9.4 GM/DL (12.0-16.0); Immature Granulocytes % 0.7 %; Immature Granulocytes Absolute 0.12 #; Lymphocytes % 12.2 % (21.3-54.2); Mean Corpuscular HGB Conc 31.9 GM/DL (32-36); Mean Corpuscular Hemoglobin 30 PG (27-34); Mean Corpuscular Volume 93.4 FL (87-102); Mean Platelet Volume 9.4 FL (9.6-12.0); Monocytes # 2.2 10*3/uL (0.11-0.8); Neutrophils # 12.2 10*3/uL (1.4-7.4); Neutrophils % 73.4 % (38.7-73.9); Red Blood Count 3.16 MC/CUMM (3.8-5.5); Red Cell Distribution Width 17.2 % (9.3-17.3); White Blood Count 16.6 T/CUMM (4-12)
[2018-10-23 05:39] LABS: Platelet Count 113 T/CUMM (130-400)
[2018-10-23 05:51] LABS: Calcium 7.7 MG/DL (8.5-10.1); Potassium 3.6 MMOL/L (3.5-5.1)
[2018-10-23] MEDS: PIPERACILLIN/TAZOBACTAM 2,250 MG in SODIUM CHLORIDE 0.9% 100 ML IV SCH (06:36)
[2018-10-23] MEDS: SODIUM HYPOCHLORITE 0.25% IRRIG 473 ML BOTTLE TOP SCH (08:59)
[2018-10-23] MEDS: MIDODRINE 5 MG TABLET PO SCH (12:42)
[2018-10-23] MEDS: PHENYLEPHRINE DRIP 40 MG/250 ML PREMIX IV SCH (16:32)
[2018-10-23] MEDS: PANTOPRAZOLE 40 MG VIAL IV SCH (16:50)
[2018-10-23] MEDS: ENOXAPARIN 30 MG/0.3 ML SYRINGE SUBCUT SCH (16:50)
[2018-10-23] MEDS: MEROPENEM 500 MG in SODIUM CHLORIDE 0.9% 100 ML IV SCH (16:51)
[2018-10-23] MEDS ORDERED: VANCOMYCIN INJ 750 MG in SODIUM CHLORIDE 0.9% 250 ML IV ONE (18:00)
[2018-10-24] MEDS: INSULIN LISPRO 100 UNIT/ML SUBCUT SCH ×4 (00:54→17:25)
[2018-10-24] MEDS: NOREPINEPHRINE 16 MG in SODIUM CHLORIDE 0.9% 234 ML IV PRN ×2 (01:44→13:45)
[2018-10-24 03:14] LABS: ABG Base Excess -2.3 MMOL/L (-2.5-2.5); ABG HCO3 22.5 MMOL/L (20-26); ABG PCO2 35.9 MM HG (35-48); ABG PH 7.398 (7.35-7.45); ABG TCO2 20.3 MMOL/L (23-27); Allen Test Positive; Pt O2 Delivery Device Ventilator
[2018-10-24] MEDS: PROPOFOL 1,000 MG/100 ML BOTTLE IV SCH (03:54)
[2018-10-24 05:26] LABS: Basophils # 0.1 10*3/uL (0.0-0.2); Basophils % 0.3 % (0.0-0.8); Eosinophils # 0.1 10*3/uL (0.0-0.87); Eosinophils % 0.4 % (0.00-10.9); Hematocrit 30.5 VOL% (35.7-47.0); Hemoglobin 9.4 GM/DL (12.0-16.0); Immature Granulocytes % 0.6 %; Immature Granulocytes Absolute 0.12 #; Lymphocytes # 2.1 10*3/uL (1.4-4.0); Mean Corpuscular HGB Conc 30.8 GM/DL (32-36); Mean Corpuscular Hemoglobin 30 PG (27-34); Mean Corpuscular Volume 96.5 FL (87-102); Mean Platelet Volume 9.1 FL (9.6-12.0); Monocytes % 10.8 % (1.7-12.7); Neutrophils # 14.4 10*3/uL (1.4-7.4); Neutrophils % 76.9 % (38.7-73.9); Platelet Count 116 T/CUMM (130-400); Red Blood Count 3.16 MC/CUMM (3.8-5.5); White Blood Count 18.8 T/CUMM (4-12)
[2018-10-24 05:40] LABS: Calcium 7.9 MG/DL (8.5-10.1)
[2018-10-24] MEDS: MIDODRINE 5 MG TABLET PO SCH (08:09)
[2018-10-24] MEDS: SODIUM HYPOCHLORITE 0.25% IRRIG 473 ML BOTTLE TOP SCH (08:10)
[2018-10-24] MEDS: PHENYLEPHRINE DRIP 40 MG/250 ML PREMIX IV SCH (14:04)
[2018-10-24] MEDS: PANTOPRAZOLE 40 MG VIAL IV SCH (16:00)
[2018-10-24] MEDS: MEROPENEM 500 MG in SODIUM CHLORIDE 0.9% 100 ML IV SCH (16:00)
[2018-10-24] MEDS: ENOXAPARIN 30 MG/0.3 ML SYRINGE SUBCUT SCH (16:00)
[2018-10-25] MEDS: INSULIN LISPRO 100 UNIT/ML SUBCUT SCH ×5 (01:02→23:37)
[2018-10-25] MEDS: NOREPINEPHRINE 16 MG in SODIUM CHLORIDE 0.9% 234 ML IV PRN ×2 (02:00→17:19)
[2018-10-25 06:05] LABS: Basophils # 0.1 10*3/uL (0.0-0.2); Basophils % 0.2 % (0.0-0.8); Eosinophils # 0.1 10*3/uL (0.0-0.87); Eosinophils % 0.5 % (0.00-10.9); Hematocrit 28.9 VOL% (35.7-47.0); Hemoglobin 8.9 GM/DL (12.0-16.0); Immature Granulocytes % 0.8 %; Immature Granulocytes Absolute 0.23 #; Lymphocytes # 0.9 10*3/uL (1.4-4.0); Mean Corpuscular HGB Conc 30.8 GM/DL (32-36); Mean Corpuscular Hemoglobin 30 PG (27-34); Mean Corpuscular Volume 95.7 FL (87-102); Mean Platelet Volume 8.9 FL (9.6-12.0); Monocytes # 1.9 10*3/uL (0.11-0.8); Monocytes % 6.3 % (1.7-12.7); Neutrophils # 27.3 10*3/uL (1.4-7.4); Neutrophils % 89.2 % (38.7-73.9); Platelet Count 104 T/CUMM (130-400); Red Blood Count 3.02 MC/CUMM (3.8-5.5); Red Cell Distribution Width 16.5 % (9.3-17.3); White Blood Count 30.6 T/CUMM (4-12)
[2018-10-25 06:19] LABS: Calcium 7.9 MG/DL (8.5-10.1); Osmolality,Calculated 287.7 MOS/KG (273-304)
[2018-10-25 06:27] LABS: Band Neutrophils 1 % (0-10); Eosinophils 1 % (0-10); Hypochromasia 1+; Ovalocytes Slight; Platelet Estimate Decreased; Segmented Neutrophils 91 % (50-85); Total Cells Counted 100
[2018-10-25] MEDS ORDERED: ALBUMIN 25% 25 GM in PREMIX 1 EACH IV ONE (08:24)
[2018-10-25] MEDS: MIDODRINE 5 MG TABLET PO SCH ×3 (09:37→21:15)
[2018-10-25] MEDS: PANTOPRAZOLE 40 MG TABLET PO SCH (09:37)
[2018-10-25] MEDS: SODIUM HYPOCHLORITE 0.25% IRRIG 473 ML BOTTLE TOP SCH (09:38)
[2018-10-25] MEDS: MEROPENEM 500 MG in SODIUM CHLORIDE 0.9% 100 ML IV SCH (15:06)
[2018-10-25] MEDS: ENOXAPARIN 30 MG/0.3 ML SYRINGE SUBCUT SCH (15:22)
[2018-10-26] MEDS: NOREPINEPHRINE 16 MG in SODIUM CHLORIDE 0.9% 234 ML IV PRN ×2 (00:44→09:25)
[2018-10-26 05:39] LABS: Basophils # 0.1 10*3/uL (0.0-0.2); Basophils % 0.4 % (0.0-0.8); Eosinophils # 0.2 10*3/uL (0.0-0.87); Eosinophils % 0.5 % (0.00-10.9); Hematocrit 29.8 VOL% (35.7-47.0); Immature Granulocytes % 1.5 %; Immature Granulocytes Absolute 0.55 #; Lymphocytes # 2.1 10*3/uL (1.4-4.0); Lymphocytes % 5.9 % (21.3-54.2); Mean Corpuscular HGB Conc 30.2 GM/DL (32-36); Mean Corpuscular Hemoglobin 29 PG (27-34); Mean Corpuscular Volume 97.1 FL (87-102); Mean Platelet Volume 9.2 FL (9.6-12.0); Monocytes # 2.8 10*3/uL (0.11-0.8); Monocytes % 7.7 % (1.7-12.7); Neutrophils # 30.1 10*3/uL (1.4-7.4); Platelet Count 136 T/CUMM (130-400); Red Blood Count 3.07 MC/CUMM (3.8-5.5); Red Cell Distribution Width 16.4 % (9.3-17.3); White Blood Count 35.9 T/CUMM (4-12)
[2018-10-26 05:40] LABS: Osmolality,Calculated 291.7 MOS/KG (273-304)
[2018-10-26] MEDS: INSULIN LISPRO 100 UNIT/ML SUBCUT SCH (06:00)
[2018-10-26 06:48] VITALS: BP 88/41
[2018-10-26] MEDS ORDERED: HYDROCORTISONE 100 MG VIAL IV SCH (07:00)
[2018-10-26] MEDS: SODIUM HYPOCHLORITE 0.25% IRRIG 473 ML BOTTLE TOP SCH (09:13)
[2018-10-26] MEDS: MIDODRINE 5 MG TABLET PO SCH ×2 (09:13→15:18)
[2018-10-26] MEDS: PANTOPRAZOLE 40 MG TABLET PO SCH (09:13)
[2018-10-26 09:19] LABS: Band Neutrophils 7 % (0-10); Eosinophils 1 % (0-10); Lymphocytes 2 % (20-55); Platelet Estimate Adequate; Polychromasia Slight; Segmented Neutrophils 87 % (50-85); Total Cells Counted 100
[2018-10-26] MEDS: MORPHINE 4 MG/1 ML VIAL IV PRN ×4 (10:15→18:38)
[2018-10-26] MEDS: LORazepam 2 MG/1 ML VIAL IV PRN ×2 (11:00→15:17)
== END 2018-10-26 18:45 | disposition expired | DRG 871 ==
LOC: N.ED 12:54 → N.EDINP 13:46 → N.CC 14:40
PROVIDERS: ADMIT Internal Medicine; ATTEND Internal Medicine